=== PATIENT | female | born 1960 | race Caucasian/White ===

== ENCOUNTER 2019-07-26 01:21 | Inpatient (IN) | payer MEDICARE, MEDICAID, SELFPAY ==
[2019-07-26] VITALS (42 sets, daily range): BP systolic 73–132; BP diastolic 28–71; PULSE 82–122; RESP 16–38; TEMP 36.6–38.8; O2SAT 82–100; BMI 41.1
--- NOTE | ~2019-07-26 | XR_ITS ---
EXAMINATION: XR chest ET placement EXAM DATE: 08/02/2019 14:47 INDICATION: Intubated. TECHNIQUE: Portable AP frontal chest x-ray was obtained. Comparison is made to prior examination from earlier same date. FINDINGS: Endotracheal tube has been advanced, tip about 4-5 cm above the talya, adequate. There is a nasogastric tube seen with tip collimated off the study, but below the left hemidiaphragm. There is extensive bilateral airspace disease probably edema and/or pneumonia. No pneumothorax. Right-sided I J venous line in position. There are no osseous abnormalities identified. IMPRESSION: 1. Tubes, lines in position. 2. Extensive bilateral edema and/or pneumonia. Reviewed, dictated and finalized at location B. RVISOR FRUIT GRADING
--- NOTE | ~2019-07-26 | XR_ITS ---
EXAMINATION: XR chest 1V portable DATE: 07/30/2019 05:41 INDICATION: Acute respiratory failure. Intubated. TECHNIQUE: frontal view of the chest was obtained. COMPARISON: Chest radiograph dated 07/28/2019 FINDINGS: Endotracheal tube tip 3.1 cm above the talya. Nasogastric tube extends below the left hemidiaphragm with distal tip collimated off the study. Indistinct interstitial and patchy airspace opacities remain in the mid and lower lung zones but have nearly resolved in the upper lung zones consistent with improving pulmonary edema although superimpo sed pneumonia not excludable. The cardiomediastinal silhouette is normal. IMPRESSION: 1. Decrease in bilateral lung disease which has nearly resolved in the upper lung zones most likely i mproving pulmonary edema although cannot exclude superimposed pneumonia. Reviewed, dictated and finalized at location A. OGICAL SCIENCES INSTRUCTOR IMPRESSION: 1. Decrease in bilateral lung disease which has nearly resolved in the upper pearl ng zones most likely improving pulmonary edema although cannot exclude superimp osed pneumonia.
--- NOTE | ~2019-07-26 | XR_ITS ---
EXAMINATION: XR chest 1V portable INDICATION: Shortness of breath and cough TECHNIQUE: Portable AP chest at 0754 hours COMPARISON: 08/03/2019 FINDINGS: The endotracheal and nasogastric tubes have been removed. A right internal jugular catheter ends with its tip in the proximal right atrium. Diffuse interstitial and airspace opacities persist with slight improvement. There are small stable pleural effusions. No pneumothorax is identified. The cardiomediastinal silhouette is stable. IMPRESSION: 1. Diffuse lung disease with slight improvement, consistent with pneumonia and/or pulmonary edema. 2. Endotracheal and nasogastric tube removal. 3. Small pleural effusions, stable. Reviewed, dictated and finalized at location A. CAL OFFICE ADMINISTRATOR IMPRESSION: 1. Diffuse lung disease with slight improvement, consistent with pneumonia and/ or pulmonary edema. 2. Endotracheal and nasogastric tube removal. 3. Small pleural effusions, stable.
--- NOTE | ~2019-07-26 | XR_ITS ---
EXAMINATION: XR chest 1V portable INDICATION: Pulmonary edema TECHNIQUE: Portable AP chest at 0515 hours COMPARISON: 08/02/2019 FINDINGS: The endotracheal tube ends approximately 4.5 cm above the talya. The nasogastric tube is f ollowed as far as the stomach. Its tip is beyond the inferior margin of the radiograph. A right inter nal jugular catheter ends with its tip in the proximal right atrium. Diffuse interstitial and airspac e opacities persist without significant change. There are small stable pleural effusions. The cardiom ediastinal silhouette is stable. IMPRESSION: 1. Diffuse lung disease without significant change, consistent with pneumonia and/or pulmonary edema. 2. Small pleural effusions. Reviewed, dictated and finalized at location A. FORCING STEEL MACHINE OPERATOR IMPRESSION: 1. Diffuse lung disease without significant change, consistent with pneumonia a nd/or pulmonary edema. 2. Small pleural effusions.
--- NOTE | ~2019-07-26 | XR_ITS ---
XR chest 1V portable DATE: 07/31/2019 05:43 INDICATION: Acute respiratory failure TECHNIQUE: Portable AP chest on 07/31/2000 at 0509 hours COMPARISON: 07/30/2019 portable AP chest at 0515 hours FINDINGS: ET tube in satisfactory position approximately 3.1 cm above talya. NG tube in stomach. Rig ht internal jugular central venous catheter tip overlies the upper right atrium. Heart size appears within normal range considering magnification associated with AP projection. There is pulmonary vascular congestion and redistribution. There is prominence of the minor fissure. There are bilateral primarily central and lower lung zone infiltrates suggesting pulmonary edema. Pneumoni a and aspiration are not excluded. The costophrenic angle not well defined. Small pleural effusions a re not excluded. Diffuse osteopenia. IMPRESSION: Mildly increased bilateral infiltrates since 07/30/2019 Reviewed, dictated and finalized at location A. Y LEVEL ASSISTANT MANAGER
--- NOTE | ~2019-07-26 | XR_ITS ---
XR chest 1V portable 08/08/2019 06:18 Indication: Cough and shortness of breath Procedure: AP portable chest Comparison: Comparison to multiple prior studies sequentially, with oldest reviewed study dated 08/02. Findings: Heart size normal. There is diffuse bilateral airspace disease, compatible with edema. Righ t IJ central line tip in the right atrium. No pleural effusion or pneumothorax. There are cholecystec josh clips. Impression: 1: Persistent diffuse bilateral airspace disease, compatible with edema. Pneumonia less favored. Reviewed, dictated and finalized at location A. ER DEVELOPMENT FACILITATOR Impression: 1: Persistent diffuse bilateral airspace disease, compatible with edema. Pneumo michael less favored.
--- NOTE | ~2019-07-26 | XR_ITS ---
EXAMINATION: XR barium swallow modified DATE: 08/04/2019 11:32 INDICATION: Dysphagia. TECHNIQUE: Modified barium esophagram was performed by myself to administered fluoroscopy, in conjun ction with speech pathologist who administered barium in varying consistencies as per speech patholog ist documentation. This was recorded on tape. A single fluoroscopic spot image was recorded. The DA P for this procedure was 1.8 Gycm2. Fluoroscopy exposure time was 2.4 minutes. FINDINGS: Oral stage: Adequate function. Pharyngeal phase: Adequate function. Laryngeal penetration: Trace with thin liquids. Aspiration: None. Laryngeal sensitivity: Present. IMPRESSION: Trace laryngeal penetration with thin liquids. Please refer to speech pathologist findin gs and specific feeding recommendations. Reviewed, dictated and finalized at location A. ER IMPRESSION: Trace laryngeal penetration with thin liquids. Please refer to spe ech pathologist findings and specific feeding recommendations.
--- NOTE | ~2019-07-26 | XR_ITS ---
XR chest 1V portable DATE: 08/01/2019 06:12 INDICATION: Acute respiratory failure; mechanical ventilation. TECHNIQUE: Portable AP chest on 08/01/2019 at 0547 hours COMPARISON: 07/31/2019 portable AP chest at 0509 hours. FINDINGS: ET tube in satisfactory position proximally 3.5 cm above talya. NG tube in stomach. Right internal jugular central venous catheter in right atrium. No pneumothorax. There are persistent bilateral pulmonary infiltrates and pulmonary vascular congestion without signif icant change, as well as probable small pleural effusions. Surgical clips overlying right upper quadrant, consistent with cholecystectomy Diffuse osteopenia IMPRESSION: Persistent congestive changes and bilateral infiltrates, unchanged since 07/31/2019 Reviewed, dictated and finalized at location A. ICAL RESEARCH DIRECTOR
--- NOTE | ~2019-07-26 | US_ITS ---
EXAMINATION: US venous doppler LE EXAM DATE: 08/04/2019 11:19 INDICATION: Right leg pain. TECHNIQUE: Multiple grayscale, color flow and Doppler images of the lower extremity deep venous syste ms bilaterally were obtained and reviewed. There is no prior study for comparison. FINDINGS: Right side: The right common femoral, femoral and profunda veins demonstrate normal color flow, respi ratory variation, augmentation and compressibility. Compressibility, color flow confirmed within the right popliteal, posterior tibial, peroneal, and greater saphenous veins. Left side: The left common femoral, femoral and profunda veins demonstrate normal color flow, respira tory variation, augmentation and compressibility. Compressibility, color flow confirmed within the l eft popliteal, posterior tibial, peroneal, and greater saphenous veins. IMPRESSION: 1. No lower extremity deep venous thrombosis bilaterally. Reviewed, dictated and finalized at location B. C ACOUSTIC ANALYST
--- NOTE | ~2019-07-26 | XR_ITS ---
EXAMINATION: XR chest ET placement INDICATION: Acute respiratory failure TECHNIQUE: Portable AP chest at 0113 hours COMPARISON: 07/28/2019 FINDINGS: The endotracheal tube ends approximately 3.1 cm above the talya. The nasogastric tube is f ollowed as far as the stomach. Its tip is beyond the inferior margin of the radiograph. A right inter nal jugular central venous catheter ends with its tip in the proximal right atrium. Diffuse interstit ial and airspace opacities persist with slight improvement, particularly in the left upper lung zone. No definite pleural effusion or pneumothorax identified. The cardiomediastinal silhouette is stable. IMPRESSION: 1. Endotracheal tube ending 3.1 cm above the talya. 2. Diffuse lung disease with slight improvement, consistent with pneumonia and/or pulmonary edema. Reviewed, dictated and finalized at location A. ENTINER IMPRESSION: 1. Endotracheal tube ending 3.1 cm above the talya. 2. Diffuse lung disease with slight improvement, consistent with pneumonia and/ or pulmonary edema.
--- NOTE | ~2019-07-26 | XR_ITS ---
EXAMINATION: XR chest 2V DATE: 07/26/2019 02:21 INDICATION: Shortness of breath TECHNIQUE: frontal and lateral views of the chest were obtained. COMPARISON: Chest radiograph dated 03/01/2019 FINDINGS: Diffuse bilateral indistinct interstitial and patchy airspace opacities sparing the subpleural lungs most likely moderate pulmonary edema. No pleural effusion or pneumothorax. The cardiomediastinal silh ouette is normal. Cholecystectomy clips in the upper abdomen. Mild thoracic spondylosis with chronic mild anterior wedging at T11 and T12. IMPRESSION: 1. Diffuse bilateral interstitial and airspace opacities which could represent moderate pulmonary devan ma, pneumonia or combination thereof. Reviewed, dictated and finalized at location A. EN IRON POURER IMPRESSION: 1. Diffuse bilateral interstitial and airspace opacities which could represent moderate pulmonary edema, pneumonia or combination thereof.
--- NOTE | ~2019-07-26 | XR_ITS ---
EXAMINATION: XR chest port-a-cath/central DATE: 07/26/2019 04:33 INDICATION: Central line placement TECHNIQUE: frontal view of the chest was obtained. COMPARISON: Chest radiograph dated 07/26/2019 at 2:18 AM FINDINGS: Right internal jugular central venous catheter with distal tip at the high right atrium. Diffuse linda stinct interstitial and mild patchy airspace opacities with subpleural sparing throughout both lungs. No pleural effusion or pneumothorax. The cardiomediastinal silhouette is normal. IMPRESSION: 1. Diffuse interstitial and airspace disease suggesting moderate pulmonary edema versus less likely p neumonia. Reviewed, dictated and finalized at location A. C D STRIPPER IMPRESSION: 1. Diffuse interstitial and airspace disease suggesting moderate pulmonary leora a versus less likely pneumonia.
--- NOTE | ~2019-07-26 | XR_ITS ---
EXAMINATION: XR chest 1V portable DATE: 07/28/2019 05:54 INDICATION: Acute respiratory failure. Intubated. TECHNIQUE: frontal view of the chest was obtained. COMPARISON: Chest radiograph dated 07/27/2019 FINDINGS: Endotracheal tube tip 5.3 cm above the talya. Nasogastric tube extends below the left hemidiaphragm with distal tip collimated off the study. Right internal jugular central venous catheter with distal tip at the high right atrium. Diffuse bilateral indistinct interstitial and patchy airspace opacities throughout both lungs. No ple ural effusion or pneumothorax. The cardiomediastinal silhouette is normal. IMPRESSION: 1. Endotracheal tube has withdrawn to 5.3 cm above the talya. Consider advancement by 3 cm. 2. No significant change in diffuse lung disease consistent with pulmonary edema, and/or pneumonia. Reviewed, dictated and finalized at location A. INE MARKER IMPRESSION: 1. Endotracheal tube has withdrawn to 5.3 cm above the talya. Consider advance ment by 3 cm. 2. No significant change in diffuse lung disease consistent with pulmonary leora a, and/or pneumonia.
--- NOTE | ~2019-07-26 | XR_ITS ---
EXAMINATION: XR chest 1V portable INDICATION: Respiratory failure TECHNIQUE: Portable AP chest at 0541 hours COMPARISON: 08/01/2019 FINDINGS: The endotracheal tube ends approximately 2.7 cm above the talya. The nasogastric tube is f ollowed as far as the stomach. Its tip is beyond the inferior margin of the radiograph. A right inter nal jugular central venous catheter ends with its tip in proximal right atrium. Diffuse interstitial and airspace opacities persist without significant change. There is some sparing of the left upper pearl ng zone. The cardiomediastinal silhouette is stable. A small right pleural effusion is suggested. No pneumothorax is identified. IMPRESSION: 1. Diffuse lung disease without significant change, consistent with pneumonia/or pulmonary edema. Reviewed, dictated and finalized at location A. ISSIONED SALES ASSOCIATE IMPRESSION: 1. Diffuse lung disease without significant change, consistent with pneumonia/o r pulmonary edema.
--- NOTE | ~2019-07-26 | XR_ITS ---
EXAMINATION: XR chest ET placement INDICATION: Endotracheal tube placement TECHNIQUE: Portable AP chest at 0915 hours COMPARISON: 0535 hours FINDINGS: The endotracheal tube ends approximately 1.2 cm above the talya. The nasogastric tube is in the stomach. Previously described opacities adjacent to the minor fissure have improved. Diffuse b ilateral interstitial and airspace opacities are otherwise unchanged. The heart size is normal. Small pleural effusions are unchanged. There is no pneumothorax. A right internal jugular central venous c atheter ends with its tip in the proximal right atrium. IMPRESSION: 1. Endotracheal tube approximately 1.2 cm above the talya. 2. Nasogastric tube in the stomach. 3. Diffuse lung disease, consistent with pneumonia and/or pulmonary edema. Reviewed, dictated and finalized at location A. T DYER
--- NOTE | ~2019-07-26 | XR_ITS ---
EXAMINATION: XR chest 1V portable DATE: 07/27/2019 06:00 INDICATION: Pulmonary infiltrates TECHNIQUE: frontal view of the chest was obtained. COMPARISON: Chest radiograph dated 07/26/2019 FINDINGS: Diffuse patchy airspace opacities throughout both lungs. This has increased in the right upper lobe w here there are coalescing opacities without evident elevation of the minor fissure to suggest signifi cant volume loss and raising concern for pneumonia. Very small bilateral pleural effusions. No pneumo thorax. The cardiomediastinal silhouette is normal. Right internal jugular central venous catheter wi th distal tip at the high right atrium. IMPRESSION: 1. Bilateral diffuse lung disease with interval worsening the right upper lobe. Differential includes pneumonia, pulmonary edema or combination thereof. 2. Very small bilateral pleural effusions. Reviewed, dictated and finalized at location A. SHING MACHINE OPERATOR
--- NOTE | 2019-07-26 01:14 | ED.SOB ---
HPI - SOB/Dyspnea General Chief Complaint: Shortness of Breath/Dyspnea Stated Complaint: sob/ cough Time Seen by Provider: 07/26/19 01:14 Source: patient and EMS Mode of arrival: EMS Limitations: no limitations History of Present Illness HPI Narrative: A 59 y/o female presents to the ED, via EMS, with c/o SOB and a cough. Per EMS, pt's symptoms started a couple weeks ago as a GI issue that turned into respiratory problem. Pt is lightheaded and dizzy when standing and her SOB is worse when standing. Pt was given Albuterol en route which alleviated her wheeze. Pt was also placed on 6 L of oxygen and was given Decadron and 500 mL of fluid en route. Pt notes that she has a PMHx of asthma but is not normally on oxygen. Pt also thinks that she has a SZ last night. Pt will sometimes have night SZs and is on SZ medication. She reports a subjective fever N/V, and a PMHx of stage 4 kidney failure. Pertinent past history: asthma Onset (ago): week(s) (couple) Exacerbating factors: other (standing) Related Data Home Medications Medication Instructions Recorded Confirmed carbamazepine 06/05/19 ezetimibe mg 06/05/19 furosemide 06/05/19 levetiracetam PO 06/05/19 lisinopril-hydrochlorothiazide 1 tablet PO BID 06/05/19 06/05/19 metronidazole 06/05/19 Allergies Allergy/AdvReac Type Severity Reaction Status Date / Time lorazepam Allergy Intermediate HALLUCINATE Verified 05/28/19 10:29 codeine Allergy Mild NAUSEA AND Verified 05/28/19 10:29 VOMITING hydrocodone Allergy Mild ROOF OF Verified 05/28/19 10:29 MOUTH WENT NUMB Penicillins Allergy Mild NAUSEA AND Verified 05/28/19 10:29 VOMITING azithromycin Allergy Unknown Unknown Verified 07/26/19 02:03 phenytoin Allergy Unknown Unknown Verified 05/28/19 10:29 topiramate Allergy Unknown Unknown Verified 07/26/19 02:03 Contrast Media Allergy Mild REDNESS TO Uncoded 05/28/19 10:29 SKIN, SWELLING TO FACE Review of Systems Review of Systems: All systems reviewed & are unremarkable except as noted in HPI and below Constitutional: Constitutional: Reports fever(s) (subjective) Comments: Reports: lightheadedness Respiratory: Respiratory: Reports cough, Reports dyspnea and Reports wheezing Gastrointestinal: Gastrointestinal: Reports nausea and Reports vomiting Neurologic: Reports dizziness PMFSH Past Medical History Medical History (Updated 07/26/19 @ 04:36 by Arash Morales MD) Asthma CVA (cerebral vascular accident) Elevated cholesterol Hypertension Kidney disease, chronic, stage IV (GFR 15-29 ml/min) Seizures Family History Family History Mother Hypertension Asthma Father Family history of malignant neoplasm of brain Social History Social History Smoking status: Unknown if ever smoked Comments No PCP on file. Exam Narrative: Exam Narrative: Constitutional: Ill-appearing, mild distress, well nourished HENMT: lip normal, MM dry Respiratory: Tachypnea. Diffuse rhonchi. Cardiovascular: Tachycardic, regular rhythm, no murmur GI: soft, nontender, normal bowel sounds Back/Spine/Pelvis: Full ROM Skin: normal color, dry skin, warm Neuro: A&O x3, normal speech Extremities: full ROM Psychiatric: mental status grossly normal, normal affect Course Vital Signs Vital signs: Vital Signs Temperature 38.8 C H 07/26/19 01:14 Pulse Rate 122 H 07/26/19 01:14 Respiratory Rate 26 H 07/26/19 01:14 Blood Pressure 83/68 L 07/26/19 01:14 Pulse Oximetry 82 L 07/26/19 01:14 Temperature 37.3 C 07/26/19 02:52 Pulse Rate 83 07/26/19 04:51 Respiratory Rate 20 07/26/19 04:51 Blood Pressure 115/63 07/26/19 04:51 Pulse Oximetry 98 07/26/19 04:51 Procedures Central Line Placement Right IJ: Central Line Date: 07/26/19 Central Line Time: 04:29 Time Out Performed: Yes Patient Placed on Mo
--- NOTE | 2019-07-26 01:31 | ECG_ITS ---
Measurements Intervals [place] Rate: 118 P: 42 MN: 127 QRS: 32 QRSD: 83 T: 17 QT: 315 QTc: 442 Interpretive Statements SINUS TACHYCARDIA POSSIBLE LEFT ATRIAL ENLARGEMENT LOW QRS VOLTAGE IN PRECORDIAL LEADS BORDERLINE T WAVE ABNORMALITY- INFERIOR LEADS BASELINE WANDER- V4-V6 ABNORMAL ECG Electronically Signed On 07-26-2019 7:09:58 GIFT SHOP MANAGER by Uriel Horvath D.O.
[2019-07-26] MEDS: SODIUM CHLORIDE 0.9% IV 1,000 ML 999 ML IV CONT ×3 (01:45→03:26)
[2019-07-26] MEDS: ALBUTEROL SULFATE NEB 2.5 MG/0.5 ML INH 5 MG INHALATION ×4 (01:57→19:58)
[2019-07-26] MEDS: IPRATROPIUM BR 0.02% INH SOLN 0.5 MG/2.5 ML VIAL INHALATION ×4 (01:58→19:58)
--- NOTE | 2019-07-26 02:13 | PC.NURSE ---
Pt taken to xray, will draw when pt returns
--- NOTE | 2019-07-26 02:50 | PC.NURSE ---
2nd liter of NS initiated per verbal order from Dr Morales
[2019-07-26 02:51] LABS: Basophils Percent Auto 0.2 % (0.2-1.2); Eosinophils Percent Auto 0.1 % (0-4.4); Hematocrit 26.4 % (37.0-47.0); Hemoglobin 8.9 g/dL (12.0-15.0); Immature Granulocyte Absolute 0.07 K/mm3 (0.00-0.031); Immature Granulocyte Percent A 0.7 % (0-0.5); Lymphocytes Absolute Auto 0.77 K/mm3 (0.9-3.2); Lymphocytes Percent Auto 7.9 % (18.3-44.2); Mean Corpuscular HGB Conc 33.7 g/dl (32-36); Mean Corpuscular Hemoglobin 31.1 pg (26-34); Mean Corpuscular Volume 92.3 fl (80-100); Mean Platelet Volume 9.6 fl (7.4-10.4); Monocytes Absolute Auto 0.4 K/mm3 (0.1-0.6); Monocytes Percent Auto 4.1 % (2.6-8.5); Neutrophils Absolute Auto 8.5 K/mm3 (1.3-6.7); Platelet Count Result 181 k/mm3 (150-375); Red Blood Count 2.86 M/mm3 (4.2-5.4); White Blood Count 9.7 K/mm3 (4.5-10.0)
[2019-07-26 03:01] LABS: INR 1.2
[2019-07-26 03:02] LABS: Lactic Acid Reflex 1.1 mmol/L (0.7-2.1); Partial Thromboplastin Time 31.3 SECONDS (22.3-36.8)
[2019-07-26 03:06] LABS: Alanine Aminotransferase 59 U/L (4-35); Alkaline Phosphatase 123 U/L (38-126); Aspartate Amino Transferase 51 U/L (14-36); Bilirubin,Total 0.5 mg/dL (0.2-1.3); Blood Urea Nitrogen 54 mg/dL (7-17); CRP 7.7 mg/dL (<1.0); Calcium 7.7 mg/dL (8.4-10.2); Carbon Dioxide 20 mmol/L (22-30); Chloride 98 mmol/L (98-107); Estimated CRCL calculation 17 ml/min; Estimated Glomerular Filt Rate 15; Glucose 141 mg/dL (65-105); Potassium 3.9 mmol/L (3.4-5.0); Sodium 131 mmol/L (137-145)
[2019-07-26 03:14] LABS: Troponin I 0.013 ng/mL (0.000-0.034)
[2019-07-26 03:19] LABS: Add Urine Microscopic? YES; Appearance Urine Clear (Clear); Bilirubin Urine Negative (Negative); Blood Urine Negative (Negative); Color Urine Yellow (Yellow); Glucose Urine UA Negative (Negative); Ketones Urine Negative (Negative); Leukocyte Esterase Ur Trace LEU/UL (Negative); Mucus Urine Rare /lpf; Nitrate Urine Negative (Negative); Protein Urine Negative (Negative); RBC Urine 0-2 /hpf (0-2); Specific Grav Ur 1.014 (1.001-1.035); Squamous Epithelial Cell Urine Rare /hpf (Few); Urobilinogen Urine Negative mg/dL (<2.0); WBC Urine 0-3 /hpf
--- NOTE | 2019-07-26 04:01 | PC.NURSE ---
Patient resting on stretcher, remains aox4. Playing on phone. Patient gave verbal consent for central line, set up completed.
--- NOTE | 2019-07-26 04:07 | PC.NURSE ---
Dr Morales at bedside for central line placement.
[2019-07-26] MEDS: NOREPINEPHRINE 8 MG/D5W 250 ML 8 MG/250 ML BAG 9.4 MG IV CONT (04:39)
--- NOTE | 2019-07-26 05:33 | PM.IMHP ---
H&P: HPI History of Present Illness Chief complaint: Intractable coughing++ Narrative: This is a pleasant 59 year old obese female with known seizure disorder, HTN, Asthma/COPD, and stage IV CKD who presented to the hosptial with a complaint of ongoing intractable coughing, intermittent fevers, and shortness of breath. Her symptoms started early last week with GI symptoms which included nausea, vomiting, diarrhea and abdominal cramping. She remarks that there was a GI bug going around in her family. As her GI symptoms started to improve she began to have respiratory symptoms including cough, shortness of breath, and wheezing. Her respiratory symptoms have continued since then and she started to spike high fevers up to 102 F. On Friday night she experienced a seizure and bit her tongue. She has been compliant with her home medications and the last time she had a seizure was 3 months ago when she had run out of her Keppra. The patient did see her gyncecologist yesterday as she was having vaginal discharge and she was told that she had a gyncecological bacterial infection and placed on flagyl and doxycycline. She stopped taking those antibiotics today as she did not like how they tasted. Tonight she has been experiencing coughing with any breathing. In the ER tonight the patient was found to be hypotensive and CXR demonstrated diffuse pulmonary edema. The patient has no history of previous heart failure. The patient received a 30cc/kg IV bolus of NS but continued to be hypotensive. She was treated with Levaquin and Vancomycin IV. ER provider placed a right IJ central line and Banking Management Consulting Manager, Dr. Molina has been consulted. The patient denies any dysuria, hematuria. She no longer has any nausea, vomiting or diarrhea. No chest pain, palpitations, rectal bleeding, open wounds or rashes are reported. She does report that she slipped and fell on her left side the other day when she tried to weigh herself. Tonight she denies any focal neurological symptoms. She hasn't had any other seizures. No other complaints at this time. Review of Systems Review of Systems: All systems reviewed & are unremarkable except as noted in HPI and below PMFSH Past Medical History Medical History Asthma CVA (cerebral vascular accident) Elevated cholesterol Hypertension Kidney disease, chronic, stage IV (GFR 15-29 ml/min) Seizures Family History Family History Mother Hypertension Asthma COPD (chronic obstructive pulmonary disease) Father Family history of malignant neoplasm of brain Social History Social History Smoking status: Unknown if ever smoked Alcohol intake: never Substance use: never Gender identity (if verbalized by the patient): Female Spiritual care concerns: No Agree to blood products: Yes Meds Home Medications and Allergies Home Medications Medication Instructions Recorded Confirmed Type carbamazepine 200 mg PO BID 06/05/19 07/26/19 History ezetimibe 10 mg PO DAILY 06/05/19 07/26/19 History furosemide 20 mg PO DAILY PRN 06/05/19 07/26/19 History acetaminophen 1,000 mg PO QID PRN 07/26/19 07/26/19 History albuterol sulfate [ProAir HFA] 2 puff INHALATION Q4H PRN 07/26/19 07/26/19 History aspirin 81 mg PO DAILY 07/26/19 07/26/19 History lisinopril-hydrochlorothiazide 1 tablet PO DAILY 07/26/19 07/26/19 History loratadine 10 mg PO DAILY 07/26/19 07/26/19 History Allergies Allergy/AdvReac Type Severity Reaction Status Date / Time lorazepam Allergy Intermediate HALLUCINATE Verified 05/28/19 10:29 codeine Allergy Mild NAUSEA AND Verified 05/28/19 10:29 VOMITING hydrocodone Allergy Mild ROOF OF Verified 05/28/19 10:29 MOUTH WENT NUMB Penicillins Allergy Mild NAUSEA AND Verified 05/28/19 10:29 VOMITING azithromycin Allergy Unknown Un
[2019-07-26] MEDS: LACTATED RINGERS 1,000 ML 125 ML IV CONT ×2 (05:46→23:59)
--- NOTE | 2019-07-26 05:57 | ECHO_ITS ---
Patient Info Name: Leatha Winn Age: 59 years : 1960 Gender: Female Ht: 60 in Wt: 198 lbs BSA: 2.00 m2 HR: 85 bpm BP: 98 / 55 mmHg Heart Rhythm: Sinus Rhythm Technical Quality: Good Exam Date: 07/26/2019 9:30 AM Exam Location: [facility] Patient Status: Inpatient Admit Date: 07/26/2019 Staff Ordering Physician: Moe Solano MD Auctioneer Tobacco: Jamal Tirado RDCS Attending Provider: Moe Solano MD Referring Physician: Xiomara VELIZ; Exam Type: CA echo doppler color flow Study Info Indications I50.30 - Unspecified diastolic (congestive) heart failure Complete two-dimensional, color flow and Doppler transthoracic echocardiogram is performed. Strain analysis performed. History/Risk Factors Pulmonary edema; septic shock, CKD IV, PNA, edema, CHF w/ BNP 1440. Summary 1. Left ventricular systolic function is hyperdynamic, estimated at >70%. 2. The left ventricular diastolic function is grade II diastolic dysfunction. 3. The mitral valve has thickened leaflets with restricted motion of posterior leaflet.. 4. There is mild mitral valve regurgitation. 5. Mild mitral annular calcification. 6. Focal echogenicity at posterior leaflet chordal insertion most likely calcificed submitral apparatus. However, cannot exclude vegetation. Clinical correlation advised. 7. There is mild tricuspid valve regurgitation. 8. Moderate pulmonary hypertension, estimated pulmonary arterial systolic pressure is 45 mmHg. Recommendations * Consider PATRICK if clinically indicated. Left Ventricle Left ventricular chamber dimension is normal. Left ventricular systolic function is hyperdynamic, estimated at >70%. There is no increased left ventricular wall thickness. Left ventricular septal wall motion is normal. The left ventricular diastolic function is grade II diastolic dysfunction. Right Ventricle Right ventricular chamber dimension is normal. Right ventricular systolic function is normal. Left Atria Left atrial chamber dimension is normal. Right Atria Right atrial chamber dimension is normal. Aortic Valve The aortic valve is not well visualized. There is mild aortic valve stenosis with a peak velocity of 253 cm/s, mean gradient of 11 mmHg, and aortic valve area of 1.5 cm2. There is no aortic valve regurgitation. Pulmonic Valve The pulmonic valve is not well visualized. Mitral Valve The mitral valve has thickened leaflets with restricted motion of posterior leaflet.. There is mild mitral valve regurgitation. Mild mitral annular calcification. Focal echogenicity at posterior leaflet chordal insertion most likely calcificed submitral apparatus. However, cannot exclude vegetation. Clinical correlation advised. Tricuspid Valve The tricuspid valve leaflets are normal. There is mild tricuspid valve regurgitation. Moderate pulmonary hypertension, estimated pulmonary arterial systolic pressure is 45 mmHg. Inferior Vena Cava Normal inferior vena cava with >50% collapse upon inspiration consistent with normal right atrial pressure, 5 mmHg. Left Ventricular Outflow Tract Name Value Normal LVOT 2D LVOT Diameter 1.7 cm LVOT Doppler
[2019-07-26] MEDS: GUAIFENESIN/DEXTROMETHORPHAN 10 ML UDC PO ×3 (06:33→19:58)
[2019-07-26 06:37] LABS: Estimated CRCL calculation 19 ml/min; Estimated Glomerular Filt Rate 16
--- NOTE | 2019-07-26 06:39 | PC.NURSE ---
This patient, Leatha Winn, was admitted to Intensive Care Unit-8 on 07/26/19 at 0518. Patient/family oriented to hospital policies and general routines including ID bracelet, bed and alarms, visiting hours, pain management, procedures, bathroom and other care routines, personal items, smoking policy, room service/diet, and visiting hours. Valuables list has been completed. Information on how to activate the Rapid Response Team has been discussed. Patient/Family are encouraged to report perceived risks to care and to ask questions if they do not understand what they are told or what they should do.
[2019-07-26 06:43] LABS: NT Pro B Type Natriuretic Pept 1440 PG/ML (5-100)
[2019-07-26] MEDS: HEPARIN SODIUM 5,000 UNITS/ML VIAL 5000 UNITS SUB-Q ×2 (07:51→20:29)
[2019-07-26] MEDS: metroNIDAZOLE 500 MG/ISO 100ML 500 MG/100 ML BAG 100 MG IVPB ×3 (07:51→18:41)
--- NOTE | 2019-07-26 07:57 | WPDCNINT ---
Assessment and Plan Assessment and plan (1) Septic shock: Code(s): A41.9 - Sepsis, unspecified organism; R65.21 - Severe sepsis with septic shock Status: Acute Assessment and Plan: patient presented with shortness of breath, cough, vaginal infection - patient was hypotensive in the ED, received adequate IV fluids, central line was inserted and patient was started on Levophed, maintain mean arterial pressures > 70 mmHg for adequate perfusion - likely source, lungs and or vaginal infection - continue cefepime, vancomycin, added Flagyl - blood in urine cultures have been obtained, will add sputum cultures - will decrease maintenance IV fluids (2) Pneumonia: Qualifiers: Pneumonia type: due to unspecified organism Laterality: unspecified laterality Lung location: unspecified part of lung Qualified Code(s): J18.9 - Pneumonia, unspecified organism Code(s): J18.9 - Pneumonia, unspecified organism Status: Acute Assessment and Plan: chest x-ray shows bilateral diffuse interstitial infiltrates, could be pneumonia, pulmonary vascular congestion - continue antibiotics as above, sputum cultures have been ordered (3) Vaginal infection: Code(s): N76.0 - Acute vaginitis Status: Acute Assessment and Plan: patient was recently seen by OBGYN, was told that she has a bacterial vaginal infection - was started on doxycycline and Flagyl orally, patient did not like the taste of those medications so she had stopped taking them - will start IV Flagyl (4) Pulmonary edema: Qualifiers: Chronicity: acute Qualified Code(s): J81.0 - Acute pulmonary edema Code(s): J81.1 - Chronic pulmonary edema Status: Acute Assessment and Plan: patient on 4 L nasal cannula with adequate O2 sats, - will place on BiPAP if needed - hold diuresis at this time since patient is in septic shock on Levophed - check echocardiogram (5) Acute renal failure superimposed on stage 4 chronic kidney disease: Qualifiers: Acute renal failure type: unspecified Qualified Code(s): N17.9 - Acute kidney failure, unspecified; N18.4 - Chronic kidney disease, stage 4 (severe) Code(s): N17.9 - Acute kidney failure, unspecified; N18.4 - Chronic kidney disease, stage 4 (severe) Status: Acute Assessment and Plan: patient with history of stage 4 chronic kidney disease, - acute on chronic kidney disease likely related to septic shock, hypovolemia, ATN - patient adequately fluid-resuscitated - continue to monitor urine output, electrolytes and renal function - will consult Nephrology, Dr. Solano is her automotive lot attendant (6) Seizure: Code(s): R56.9 - Unspecified convulsions Status: Acute Assessment and Plan: patient with history of seizures, continue carbamazepine (7) DVT prophylaxis: Code(s): Z29.9 - Encounter for prophylactic measures, unspecified Status: Acute Assessment and Plan: heparin SQ Additional Plan discussed with patient updated with her condition and plan of care. I answered all questions Code status: full code critical care time spent: 39 minutes Due to a high probability of clinically significant, life threatening deterioration, the patient required my highest level of preparedness to intervene emergently and I personally spent this critical care time directly and personally managing the patient. This critical care time included obtaining a history; examining the patient; pulse oximetry; ordering and review of studies; arranging urgent treatment with development of a management plan; evaluation of patient's response to treatment; frequent reassessment; and discussions with other providers. It was exclusive of separately billable procedures and treating other patients and teaching time. Please see Assessment and Plan section and the rest of the note for further information on patient assessment and
[2019-07-26 08:17] LABS: Lactic Acid Reflex 0.9 mmol/L (0.7-2.1)
[2019-07-26 08:36] LABS: Thyroid Stimulating Hormone Reflex 0.339 uIU/mL (0.465-4.68)
[2019-07-26 09:21] LABS: Free T4 Free Thyroxine Reflex 1.19 ng/dL (0.78-2.19)
--- NOTE | 2019-07-26 09:22 | PM.CNNEP ---
Assessment and Plan Assessment and plan (1) Acute renal failure superimposed on stage 4 chronic kidney disease: Onset Date: ~07/2019 Code(s): N17.9 - Acute kidney failure, unspecified; N18.4 - Chronic kidney disease, stage 4 (severe) Status: Acute Assessment and Plan: The patient has known chronic kidney disease stage 3 at baseline. Current numbers may just be due to the acute renal failure. The differential diagnosis of the acute renal failure would be volume depletion, hypotension, acute tubular necrosis with sepsis and septic shock. The patient will get fluids, 1 in the intake and output, monitor renal function, interventions Patient is noted to be anemic on this occasion. Platelet count is normal. I do not believe there is any hemolysis but needs to be contemplated just in case as she has had normal hemoglobin levels in the past. She also has a past CT scan showing nodularity of the liver which is suspected to be due to cirrhosis. She has had a few hospitalizations with acute hepatic injury of undetermined etiology. Apparently she has mild elevations of the liver enzymes. She is being treated with antimicrobials for the sepsis. Required pressors in the beginning and has had lactated Ringer's. So long as she makes urine and her level improving we should not have much to be concerned about. A urinalysis shows protein count to be negative no red cells in the urine. Patient has a lactate of 0.9. Patient has a borderline low calcium and is hypoalbuminemic. Will add calcium carbonate, check magnesium and phosphorus levels. D/w Dr Molina . (2) Hypertension: Qualifiers: Hypertension type: unspecified Qualified Code(s): I10 - Essential (primary) hypertension Code(s): I10 - Essential (primary) hypertension Status: Chronic Assessment and Plan: May have an element of hypertensive renal disease. (3) Secondary hyperparathyroidism of renal origin: Code(s): N25.81 - Secondary hyperparathyroidism of renal origin Status: Acute Assessment and Plan: She has had a level of 116 in the past. Can look at vitamin-D analog later on which is low stable. (4) Cirrhosis of liver: Code(s): K74.60 - Unspecified cirrhosis of liver Status: Acute Assessment and Plan: This note is for a vacation. Elevated liver enzymes noted. (5) Septic shock: Code(s): A41.9 - Sepsis, unspecified organism; R65.21 - Severe sepsis with septic shock Status: Acute Assessment and Plan: IV fluid support and antibiotics. (6) Pulmonary edema: Qualifiers: Chronicity: acute Qualified Code(s): J81.0 - Acute pulmonary edema Code(s): J81.1 - Chronic pulmonary edema Status: Acute Assessment and Plan: Will need evaluation of cardiac status as well based on the presentation with the elevated BNP, pulmonary edema, presence of infiltrates which represent pneumonic infiltrates. Additional Plan From a renal standpoint, we will watch. Monitor I/O: Monitor basic metabolic panel. Think about other causes of renal failure. However there is no active urinary sediment. Therefore this is not a pulmonary renal syndrome. With hydration, improvement of blood pressure, treatment of the infection I believe she will settle down back to her baseline renal function which probably put her at chronic kidney disease stage 3 History of Present Illness Reason for Consult Consult date: 07/26/19 Reason for consult: acute renal failure and chronic renal failure Requesting physician: Liliya Molina MD Chief Complaint Chief complaint: Intractable coughing++ History of Present Illness Narrative: 59-year-old white female known to me from the office. She has a baseline creatinine of 2.0 mg/dL from 3 months ago. Patient has been in ICU multiple times with sepsis. She has had acute hepatic injury of a few occasions as well. The splinting to acute renal failure. She has b
[2019-07-26 10:05] LABS: Total Triiodothyronine (T3) 0.61 NG/ML (0.97-1.69)
[2019-07-26] MEDS: CALCIUM CARBONATE (TUMS) 500 MG (200 MG ELEMENTAL) PO (15:31)
--- NOTE | 2019-07-26 17:00 | PM.IMPN ---
Progress Note: A&P Assessment and Plan (1) Septic shock: Code(s): A41.9 - Sepsis, unspecified organism; R65.21 - Severe sepsis with septic shock Status: Acute Assessment and Plan: 07/26/19 17:00 Patient is 59-year-old female presented emergency department with persistent cough abdominal pain nausea vomiting, patient also had vaginal discharge and she was seen by her coiled tubing operator diagnosed with bacterial vaginosis started the patient on Flagyl and doxycycline however patient did not take the medication because as see did not like the taste of the medications, see presented emergency department with a complaint of persistent cough C found to pneumonia and see was in sepsis with hypotension however patient lactic acid is normal as well as white counts are normal, patient was started on Levophed vigorously hydrated seen by impersonator character and being treated with Cefepime, vancomycin and Flagyl, currently patient denies any abdominal pain nausea or vomiting fever or chills her family is present in the room (2) Pulmonary edema: Qualifiers: Chronicity: acute Qualified Code(s): J81.0 - Acute pulmonary edema Code(s): J81.1 - Chronic pulmonary edema Status: Acute Assessment and Plan: Patient with pulmonary edema most likely secondary to acute on chronic diastolic dysfunction however currently patient is hypotensive, and hydrated concern for volume overload seen by impersonator character and further recommendation to follow (3) Normocytic anemia: Code(s): D64.9 - Anemia, unspecified Status: Acute Assessment and Plan: acute vs. chronic. No history of bleeding. Monitor H/H, transfuse prn. (4) Transaminitis: Code(s): R74.0 - Nonspecific elevation of levels of transaminase and lactic acid dehydrogenase [LDH] Status: Acute Assessment and Plan: Likely secondary to hypoperfusion. Monitor LFTs and consider further studies if the patient's transaminitis doesn't resolve. (5) Seizure: Code(s): R56.9 - Unspecified convulsions Status: Acute Assessment and Plan: The pateint has had an acute seizure the day before yesterday. We will continue her Carbamazepine. Seizure precautions. Consider Neurology consultation today. (6) Vaginal infection: Code(s): N76.0 - Acute vaginitis Status: Acute Assessment and Plan: It's not entirely clear what kind of vaginal infection the patient is being treated for. We will need to obtain outside records in the morning from her Analysis Director office. Continue antibiotic therapy. Plan is above (7) Acute renal failure superimposed on stage 4 chronic kidney disease: Onset Date: ~07/2019 Code(s): N17.9 - Acute kidney failure, unspecified; N18.4 - Chronic kidney disease, stage 4 (severe) Status: Acute Assessment and Plan: Likely secondary to hypoperfusion from septic shock. Monitor renal function. Renally dose medications. Avoid nephrotoxic medications. (8) Hypertension: Qualifiers: Hypertension type: unspecified Qualified Code(s): I10 - Essential (primary) hypertension Code(s): I10 - Essential (primary) hypertension Status: Chronic Assessment and Plan: Hold home anithypertensive medications as the patient has septic shock. resume when appropriate. (9) Elevated cholesterol: Code(s): E78.00 - Pure hypercholesterolemia, unspecified Status: Chronic Assessment and Plan: Continue statin therapy. Subjective Date/time seen: 07/26/19 17:00 Patient is 59-year-old female presented emergency department with persistent cough abdominal pain nausea vomiting, patient also had vaginal discharge and she was seen by her coiled tubing operator diagnosed with bacterial vaginosis started the patient on Flagyl and doxycycline however patient did not take the medication because as see did not like the taste of the medications, see presented emergency department with a complaint
[2019-07-26] MEDS: ACETAMINOPHEN 325 MG TABLET 650 MG PO (19:56)
[2019-07-26] MEDS: CARBAMAZEPINE 100 MG CHEW PO (20:28)
[2019-07-26 20:42] LABS: Lactic Acid Reflex 1.3 mmol/L (0.7-2.1)
[2019-07-26] MEDS: hetaSTARCH 6%/NACL 500 ML 250 ML IV CONT (21:56)
[2019-07-27] VITALS (25 sets, daily range): BP systolic 87–106; BP diastolic 37–74; PULSE 88–126; RESP 17–38; TEMP 36.6–39; O2SAT 91–100; BMI 41.3
[2019-07-27] MEDS: ALBUTEROL SULFATE NEB 2.5 MG/0.5 ML INH 5 MG INHALATION ×4 (01:59→21:17)
[2019-07-27] MEDS: IPRATROPIUM BR 0.02% INH SOLN 0.5 MG/2.5 ML VIAL INHALATION ×4 (02:00→21:17)
[2019-07-27] MEDS: NOREPINEPHRINE 8 MG/D5W 250 ML 8 MG/250 ML BAG 31.9 MG IV CONT (02:11)
[2019-07-27] MEDS: GUAIFENESIN/DEXTROMETHORPHAN 10 ML UDC PO (02:18)
[2019-07-27] MEDS: metroNIDAZOLE 500 MG/ISO 100ML 500 MG/100 ML BAG 100 MG IVPB ×3 (05:21→11:36)
[2019-07-27 05:45] LABS: Basophils Percent Auto 0.1 % (0.2-1.2); Eosinophils Percent Auto 0.1 % (0-4.4); Hematocrit 27.6 % (37.0-47.0); Hemoglobin 8.7 g/dL (12.0-15.0); Immature Granulocyte Absolute 0.14 K/mm3 (0.00-0.031); Lymphocytes Absolute Auto 1.07 K/mm3 (0.9-3.2); Lymphocytes Percent Auto 7.7 % (18.3-44.2); Mean Corpuscular HGB Conc 31.5 g/dl (32-36); Mean Corpuscular Hemoglobin 28.6 pg (26-34); Mean Corpuscular Volume 90.8 fl (80-100); Mean Platelet Volume 9.2 fl (7.4-10.4); Monocytes Absolute Auto 0.9 K/mm3 (0.1-0.6); Monocytes Percent Auto 6.5 % (2.6-8.5); Neutrophils Absolute Auto 11.7 K/mm3 (1.3-6.7); Neutrophils Percent Auto 84.6 % (45.5-73.1); Platelet Count Result 242 k/mm3 (150-375); Red Blood Count 3.04 M/mm3 (4.2-5.4); Red Cell Distribution Width 13.5 % (11.5-14.5); White Blood Count 13.8 K/mm3 (4.5-10.0)
[2019-07-27 05:57] LABS: Lactic Acid 0.9 mmol/L (0.7-2.1)
[2019-07-27 06:06] LABS: Alanine Aminotransferase 47 U/L (4-35); Albumin Level 2.8 g/dL (3.5-5.1); Alkaline Phosphatase 104 U/L (38-126); Aspartate Amino Transferase 42 U/L (14-36); Bilirubin,Total 0.3 mg/dL (0.2-1.3); Blood Urea Nitrogen 38 mg/dL (7-17); Calcium 8.3 mg/dL (8.4-10.2); Carbon Dioxide 22 mmol/L (22-30); Chloride 105 mmol/L (98-107); Estimated CRCL calculation 27 ml/min; Estimated Glomerular Filt Rate 24; Glucose 157 mg/dL (65-105); Magnesium 1.5 mg/dL (1.6-2.3); Potassium 4.1 mmol/L (3.4-5.0); Sodium 137 mmol/L (137-145)
--- NOTE | 2019-07-27 08:24 | PM.PNNEP ---
Progress Note: A&P Assessment and Plan (1) Acute renal failure superimposed on stage 4 chronic kidney disease: Onset Date: ~07/2019 Code(s): N17.9 - Acute kidney failure, unspecified; N18.4 - Chronic kidney disease, stage 4 (severe) Status: Acute Assessment and Plan: The patient is improving with reference to the renal failure. However breathing kennedy she is worsening, chest x-rays wrist with patchy alveolar infiltrates bilaterally. She has not had to have ARDS with increased respiratory rate. Patient is going to require ventilatory support and has to be intubated. She is on antimicrobial therapy. She has grade 2 diastolic heart failure. Currently needing pressor support as well as IV fluids. She is on antimicrobial therapy. Cayetano was her liver function, renal function, urinary output. She is hypomagnesemic and magnesium is being replaced. Will continue to watch from a renal standpoint. Prognosis guarded in light of these new developments requiring ventilation. Hopefully she does not respond with a renal function. She is anemic, platelet count is normal. No active GI bleed. Monitor. (2) Cirrhosis of liver: Code(s): K74.60 - Unspecified cirrhosis of liver Status: Acute (3) Secondary hyperparathyroidism of renal origin: Code(s): N25.81 - Secondary hyperparathyroidism of renal origin Status: Acute (4) Hypertension: Qualifiers: Hypertension type: unspecified Qualified Code(s): I10 - Essential (primary) hypertension Code(s): I10 - Essential (primary) hypertension Status: Chronic (5) Transaminitis: Code(s): R74.0 - Nonspecific elevation of levels of transaminase and lactic acid dehydrogenase [LDH] Status: Acute (6) Septic shock: Code(s): A41.9 - Sepsis, unspecified organism; R65.21 - Severe sepsis with septic shock Status: Acute (7) Anemia: Code(s): D64.9 - Anemia, unspecified Status: Acute (8) Hypomagnesemia: Code(s): E83.42 - Hypomagnesemia Status: Acute Subjective Date/time seen: 07/27/19 08:24 Interval history: Follow-up of acute on chronic renal failure Exhausted, coughing, minimal production sputum, has a Penaloza catheter in place. Hearing been made. Urinary output of 3950 mL Has increased shortness of breath Current echocardiogram report shows ejection fraction greater than 70% with grade 2 diastolic heart failure. She has pulmonary hypertension. Exam Const: General: in distress and uncomfortable HENMT: Mouth: Yes moist mucous membranes Eyes: Sclera: sclerae normal Neck: Neck: no JVD Resp: Auscultation: diminished lung sounds (wheeze, hard to hear otherwise) Cardio: Rate: regular rate Rhythm: regular rhythm GI: GI Palp: Yes Soft to palpation and No Tenderness to palpation present (GI) Urinary Catheter: Urinary Catheter: urine clear Skin: General skin exam: no rashes or lesions noted Neuro: Cognition (Neuro): normal cognition Extrem: General: no edema Psych: Other: tired Objective Data Vital Signs Vital Signs: Vital Signs - 24 hr 07/26/19 09:10 07/26/19 09:20 07/26/19 10:00 Temperature Pulse Rate 84 92 87 Respiratory Rate 20 23 H 16 Blood Pressure 103/52 L Pulse Oximetry 95 98 07/26/19 11:54 07/26/19 12:00 07/26/19 14:00 Temperature 36.6 C Pulse Rate 82 93 85 Respiratory Rate 22 H 27 H 31 H Blood Pressure 92/52 L 90/46 L Pulse Oximetry 96 96 98 07/26/19 15:04 07/26/19 15:15 07/26/19 16:00 Temperature 37.1 C Pulse Rate 83 86 96 Respiratory Rate 23 H 19 28 H Blood Pressure 81/70 L Pulse Oximetry 94 07/26/19 18:00 07/26/19 20:00 07/26/19 20:05 Temperature Pulse Rate 95 114 H Respiratory Rate 22 H 28 H Blood Pressure 93/48 L Pulse Oximetry 97 88 L 94 07/26/19 20:07 07/26/19 20:15 07/26/19 20:30 Temperature Pulse Rate 98 102 H 104 H Respiratory Rate 24 H 38 H 28 H Blood Pressure 94/36 L 94/35 L Pulse Oxi
[2019-07-27] MEDS: SODIUM CHLORIDE 0.9% IV 500 ML IV CONT (09:21)
[2019-07-27] MEDS: RAPID SEQUENCE INTUBATION KIT 1 EACH (09:22)
[2019-07-27] MEDS: MIDAZOLAM HCL 50 MG in DEXTROSE 5% 90 ML IV CONT (09:31)
[2019-07-27] MEDS: MAGNESIUM SULF 2 GM/WATER 50ML 2 GM/50 ML BAG IVPB (09:43)
[2019-07-27] MEDS: HEPARIN SODIUM 5,000 UNITS/ML VIAL 5000 UNITS SUB-Q ×2 (09:43→21:25)
[2019-07-27 10:47] LABS: Alveolar/Arterial O2 Gradient 563.5 mmHg; Base Excess ABG -6.6 mEq/l (+/-2.0); Carboxyhemoglobin 0.2 % THb (0-2.0); Fractional Inspired Oxygen 85 %; HCO3 ABG 20.1 mEq/l (22.0-26.0); Methemoglobin ABG 0.5 %THb (0-1.5); Oxygen Content ABG 12.1 %vol (16.0-22.0); Oxyhemoglobin 87.5 % THb (90.0-100.0); PCO2 ABG 45.8 mmHg (35.0-45.0); PO2 ABG 57.9 mmHg (80.0-100.0); PO2 FiO2 Ratio Arterial Blood 0.68 %; Reduced Hemoglobin 11.8 %THb (0-5.0); Total Hemoglobin 9.8 g/dL (12.0-18.0)
[2019-07-27 10:48] LABS: Device VENTILATOR; Oxygen Saturation ABG 85.9 % (95.0-100.0); Site Drawn LEFT BRACHIAL; pH ABG 7.261 (7.350-7.450)
[2019-07-27 10:49] LABS: Arterial Blood Gas PEEP 12 cmH2O; Arterial Blood Gas Tidal Volume 320 ml; Arterial Blood Gas Vent Mode CMV; Arterial Blood Gas Ventilator rate 20 /MIN
[2019-07-27] MEDS: NOREPINEPHRINE 8 MG/D5W 250 ML 8 MG/250 ML BAG 28.1 MG IV CONT (10:59)
[2019-07-27] MEDS: PANTOPRAZOLE SODIUM IV 40 MG VIAL IV PUSH (11:37)
[2019-07-27 12:22] LABS: Alveolar/Arterial O2 Gradient 462.2 mmHg; Base Excess ABG -6.3 mEq/l (+/-2.0); Carboxyhemoglobin 0.2 % THb (0-2.0); Fractional Inspired Oxygen 100 %; Methemoglobin ABG 0.6 %THb (0-1.5); Oxygen Content ABG 14.1 %vol (16.0-22.0); Oxygen Saturation ABG 99.4 % (95.0-100.0); Oxyhemoglobin 97.7 % THb (90.0-100.0); PCO2 ABG 36.8 mmHg (35.0-45.0); PO2 FiO2 Ratio Arterial Blood 2.14 %; Reduced Hemoglobin 1.5 %THb (0-5.0); Total Hemoglobin 9.9 g/dL (12.0-18.0)
[2019-07-27 12:23] LABS: Arterial Blood Gas PEEP 14 cmH2O; Arterial Blood Gas Tidal Volume 320 ml; Arterial Blood Gas Vent Mode CMV; Arterial Blood Gas Ventilator rate 24 /MIN; Device VENTILATOR; Modified Allen's Test Pass; Site Drawn LEFT RADIAL
--- NOTE | 2019-07-27 12:56 | P.PCNBED_ITS ---
Procedures Intubation: Intubation Date: 07/27/19 Intubation Time: 08:34 A pre- procedural Time-Out was completed immediately before starting the procedure and confirmed: Patient Identification, Site, Procedure, Patient Position and the Availability of Requisite Equipment: Yes Sedative: etomidate Paralytic: succinylcholine Laryngoscope: fiber optic video scope Assist device used: fiber optic device ET tube size: 7.5 Tube secured depth (cm): 23 Tube secured location: lips Tube placement confirmation: visualized tube passing through cords, equal breath sounds bilaterally, no breath sounds over epigastrium and confirmation by capnometry Patient tolerated procedure: well and no complications Intubation complications: none Additional comments: After obtaining consent from the patient and her son and explaining the rationale for intubation. it was decided to go ahead and intubate the patient. The patient was lying in the supine position. Preoxygenation via BVM was provided for a minimum of 3 minutes. The patient had continuous cardiac as well as pulse oximetry monitoring during the procedure. Rapid sequence induction was provided by administration of Etomidate and Succinylcholine. A Glidescope blade 4 was used to directly visualize the vocal cords. A 7.5 mm endotracheal tube was visualized advancing between the cords to a level of 23 cm at the lip. The stylette was then removed. Tube placement was also noted by fogging in the tube, equal and bilateral breath sounds, no sounds over the epigastrium, and end-tidal colorimetric monitoring. The cuff was then inflated with 10 ml of air and the tube secured using a commercially available device. A good pulse oximetry wave form was seen on the monitor throughout the procedure. The patient was then connected to the ventilator at a tidal volume of 320 ml; rate of 20; FiO2 of 80%; and PEEP of 10. A portable chest x-ray has been ordered for placement. Continued sedation will be provided by Fentanyl and Versed continuous infusion titrated to a RASS of -2. The patient tolerated the procedure well.
--- NOTE | 2019-07-27 12:58 | WPDINTPN ---
Progress Note: A&P Assessment and Plan (1) Acute respiratory failure: Qualifiers: Respiratory failure complication: unspecified whether with hypoxia or hypercapnia Qualified Code(s): J96.00 - Acute respiratory failure, unspecified whether with hypoxia or hypercapnia Code(s): J96.00 - Acute respiratory failure, unspecified whether with hypoxia or hypercapnia Status: Acute Assessment and Plan: patient presented with pneumonia, this morning she had impending respiratory failure with respiratory rates 40s and 50s, severe shortness of breath, shallow respirations. Discussed with patient and her son and they were okay with intubation and placing her on mechanical ventilation. Patient was intubated on 07/27/2019 - ARDS physiology on chest x-ray - no tidal volume and high peep strategy will be used - patient on bronchodilators - ABGs and chest x-ray reviewed - fentanyl and Versed for sedation, maintain RASS of 0 to -2, daily sedation vacation (2) Septic shock: Code(s): A41.9 - Sepsis, unspecified organism; R65.21 - Severe sepsis with septic shock Status: Acute Assessment and Plan: patient presented with shortness of breath, cough, vaginal infection - patient was hypotensive in the ED, received adequate IV fluids, vasopressor requirements of common out, will maintain mean arterial pressure . 65 mmHg - likely source, lungs and or vaginal infection - continue cefepime, vancomycin,Flagyl - blood and urine cultures are negative. sputum cultures are pending - continue maintenance IV fluids (3) Pneumonia: Qualifiers: Pneumonia type: due to unspecified organism Laterality: unspecified laterality Lung location: unspecified part of lung Qualified Code(s): J18.9 - Pneumonia, unspecified organism Code(s): J18.9 - Pneumonia, unspecified organism Status: Acute Assessment and Plan: chest x-ray shows bilateral diffuse interstitial infiltrates, could be pneumonia, pulmonary vascular congestion - continue antibiotics as above, sputum cultures have been ordered (4) Vaginal infection: Code(s): N76.0 - Acute vaginitis Status: Acute Assessment and Plan: patient was recently seen by OBGYN, was told that she has a bacterial vaginal infection - was started on doxycycline and Flagyl orally, patient did not like the taste of those medications so she had stopped taking them - continue Flagyl (5) Pulmonary edema: Qualifiers: Chronicity: acute Qualified Code(s): J81.0 - Acute pulmonary edema Code(s): J81.1 - Chronic pulmonary edema Status: Acute Assessment and Plan: patient on 4 L nasal cannula with adequate O2 sats, - will place on BiPAP if needed - hold diuresis at this time since patient is in septic shock on Levophed - echocardiogram done on 07/26/2019: LV systolic function is hyperdynamic with estimated EF greater than 70%. Grade 2 diastolic dysfunction. Mild mitral valve regurg, mild tricuspid valve regurg, Focal echogenicity at posterior leaflet chordal insertion most likely calcificed submitral apparatus. However, cannot exclude vegetation. Clinical correlation advised. moderate pulmonary hypertension, RVSP 45 mmHg (6) Acute renal failure superimposed on stage 4 chronic kidney disease: Onset Date: ~07/2019 Qualifiers: Acute renal failure type: unspecified Qualified Code(s): N17.9 - Acute kidney failure, unspecified; N18.4 - Chronic kidney disease, stage 4 (severe) Code(s): N17.9 - Acute kidney failure, unspecified; N18.4 - Chronic kidney disease, stage 4 (severe) Status: Acute Assessment and Plan: patient with history of stage 4 chronic kidney disease, - acute on chronic kidney disease likely related to septic shock, hypovolemia, ATN - patient adequately fluid-resuscitated, creatinine better this morning - continue to monitor urine output, electrolytes and renal
--- NOTE | 2019-07-27 16:40 | PM.IMPN ---
Progress Note: A&P Assessment and Plan (1) Septic shock: Code(s): A41.9 - Sepsis, unspecified organism; R65.21 - Severe sepsis with septic shock Status: Acute Assessment and Plan: Patient is 59-year-old female presented emergency department with persistent cough abdominal pain nausea vomiting, patient also had vaginal discharge and she was seen by her envelope press operator diagnosed with bacterial vaginosis started the patient on Flagyl and doxycycline however patient did not take the medication because as see did not like the taste of the medications, see presented emergency department with a complaint of persistent cough C found to pneumonia and see was in sepsis with hypotension however patient lactic acid is normal as well as white counts are normal, patient was started on Levophed vigorously hydrated seen by insole and outsole splitter and being treated with Cefepime, vancomycin and Flagyl, Patient patient went into respiratory distress and had to be intubated most likely worsening pneumona currently patient on vent, her family is present in the room (2) Pulmonary edema: Qualifiers: Chronicity: acute Qualified Code(s): J81.0 - Acute pulmonary edema Code(s): J81.1 - Chronic pulmonary edema Status: Acute Assessment and Plan: Patient with pulmonary edema most likely secondary to acute on chronic diastolic dysfunction however currently patient is hypotensive, and hydrated concern for volume overload seen by insole and outsole splitter and further recommendation to follow (3) Normocytic anemia: Code(s): D64.9 - Anemia, unspecified Status: Acute Assessment and Plan: acute vs. chronic. No history of bleeding. Monitor H/H, transfuse prn. (4) Transaminitis: Code(s): R74.0 - Nonspecific elevation of levels of transaminase and lactic acid dehydrogenase [LDH] Status: Acute Assessment and Plan: Likely secondary to hypoperfusion. Monitor LFTs and consider further studies if the patient's transaminitis doesn't resolve. (5) Seizure: Code(s): R56.9 - Unspecified convulsions Status: Acute Assessment and Plan: The pateint has had an acute seizure the day before yesterday. We will continue her Carbamazepine. Seizure precautions. Consider Neurology consultation today. (6) Vaginal infection: Code(s): N76.0 - Acute vaginitis Status: Acute Assessment and Plan: It's not entirely clear what kind of vaginal infection the patient is being treated for. We will need to obtain outside records in the morning from her Pacu Nurse office. Continue antibiotic therapy. Plan is above (7) Acute renal failure superimposed on stage 4 chronic kidney disease: Onset Date: ~07/2019 Qualifiers: Acute renal failure type: unspecified Qualified Code(s): N17.9 - Acute kidney failure, unspecified; N18.4 - Chronic kidney disease, stage 4 (severe) Code(s): N17.9 - Acute kidney failure, unspecified; N18.4 - Chronic kidney disease, stage 4 (severe) Status: Acute Assessment and Plan: Likely secondary to hypoperfusion from septic shock. Monitor renal function. Renally dose medications. Avoid nephrotoxic medications. (8) Hypertension: Qualifiers: Hypertension type: unspecified Qualified Code(s): I10 - Essential (primary) hypertension Code(s): I10 - Essential (primary) hypertension Status: Chronic Assessment and Plan: Hold home anithypertensive medications as the patient has septic shock. resume when appropriate. (9) Elevated cholesterol: Code(s): E78.00 - Pure hypercholesterolemia, unspecified Status: Chronic Assessment and Plan: Continue statin therapy. (10) Acute respiratory failure: Qualifiers: Respiratory failure complication: unspecified whether with hypoxia or hypercapnia Qualified Code(s): J96.00 - Acute respiratory failure, unspecified whether with hypoxia or hypercapnia Code(
--- NOTE | 2019-07-27 16:53 | WPDINFPN2 ---
Progress Note: A&P Assessment and Plan (1) Pneumonia: Qualifiers: Pneumonia type: due to unspecified organism Laterality: unspecified laterality Lung location: unspecified part of lung Qualified Code(s): J18.9 - Pneumonia, unspecified organism Code(s): J18.9 - Pneumonia, unspecified organism Status: Acute Assessment and Plan: 1. Lung infiltrates, infectious vs other 2. MV abnormality 3. Respiratory failure 4. Cirrhosis 5. Renal failure REC Cefepime #2. Hold other rx. Flu screen, viral and bacterial cultures of tracheal aspirate. BCs in process. No PATRICK needed from my standpoint, unless new clinical developments that are more specific for endocarditis. Subjective Date/time seen: 07/27/19 16:53 Objective Data Vital Signs Vital Signs: Vital Signs - 24 hr 07/26/19 18:00 07/26/19 20:00 07/26/19 20:05 Temperature Pulse Rate 95 114 H Respiratory Rate 22 H 28 H Blood Pressure 93/48 L Pulse Oximetry 97 88 L 94 07/26/19 20:07 07/26/19 20:15 07/26/19 20:30 Temperature Pulse Rate 98 102 H 104 H Respiratory Rate 24 H 38 H 28 H Blood Pressure 94/36 L 94/35 L Pulse Oximetry 88 L 92 07/26/19 20:45 07/26/19 20:53 07/26/19 21:00 Temperature Pulse Rate 98 109 H Respiratory Rate 36 H 31 H Blood Pressure 95/37 L 113/44 L Pulse Oximetry 93 93 07/26/19 21:15 07/26/19 22:00 07/26/19 22:30 Temperature 36.6 C Pulse Rate 114 H 108 H 102 H Respiratory Rate 28 H 26 H 24 H Blood Pressure 103/54 L 108/50 L 116/55 L Pulse Oximetry 94 94 94 07/26/19 23:00 07/27/19 00:00 07/27/19 02:00 Temperature 36.6 C Pulse Rate 98 96 98 Respiratory Rate 26 H 28 H 38 H Blood Pressure 108/54 L 96/39 L 102/55 L Pulse Oximetry 96 96 07/27/19 02:06 07/27/19 03:26 07/27/19 06:00 Temperature 36.7 C Pulse Rate 106 H 104 H 108 H Respiratory Rate 30 H 28 H 28 H Blood Pressure 87/70 L Pulse Oximetry 94 91 01/21/20 07:56 07/27/19 08:00 07/27/19 08:06 Temperature 37.3 C Pulse Rate 108 H 102 H 109 H Respiratory Rate 28 H 17 32 H Blood Pressure 98/74 L Pulse Oximetry 94 96 07/27/19 08:55 07/27/19 10:00 07/27/19 12:00 Temperature 37.7 C H Pulse Rate 111 H 98 88 Respiratory Rate 31 H 21 H Blood Pressure 95/37 L 92/56 L Pulse Oximetry 100 100 100 07/27/19 13:46 07/27/19 13:56 07/27/19 14:00 Temperature Pulse Rate 96 98 106 H Respiratory Rate 29 H 26 H 29 H Blood Pressure 104/45 L Pulse Oximetry 98 97 07/27/19 16:44 Temperature Pulse Rate 97 Respiratory Rate Blood Pressure Pulse Oximetry 94 Intake/Output Intake/Output: Intake & Output 07/24/19 07/25/19 07/26/19 07/27/19 23:59 23:59 23:59 23:59 Intake Total 3620 3600 Output Total 2150 2000 Balance 1470 1600 Meds/Results Medications: Active Medications Generic Name Dose Route Start Last Admin Trade Name Freq PRN Reason Stop Dose Admin Acetaminophen 650 mg 07/26/19 06:19 07/26/19 19:56 Tylenol Tablet PO 650 mg Q4H PRN Administration Mild Pain (1-3) or Fever Albuterol 5 mg 07/26/19 08:00 07/27/19 13:46 Albuterol Sulf Neb 2.5mg/0.5ml INHALATION 5 mg Q6HRT RYDER Administration Benzocaine 1 lozenge 07/27/19 06:13 Chloraseptic Lozenge PO PRN PRN Sore Throat Calcium Carbonate 200 mg 07/26/19 09:00 07/27/19 09:13 Tums PO Not Given BID RYDER Carbamazepine 100 mg 07/26/19 21:00 07/27/19 09:13 Tegretol Chew PO Not Given Q12HR RYDER Guaifenesin 600 mg 07/26/19 21:00 07/27/19 09:15 Mucinex 12 Hr Tab PO Not Given Q12HR RYDER Guaifenesin/Dextromethorphan 10 ml 07/26/19 06:16 07/27/19 02:18 Robitussin-Dm Syrup PO 07/28/19 07:00 10 ml Q4H PRN Administration Cough Heparin Sodium (Porcine) 5,000 units 07/26/19 09:00 07/27/19 09:43 Heparin Sodium SUB-Q 5,000 units Q12HR RYDER Administration Norepinephrine Bitartrate 8 mg in 250 mls @ 37.5 mls/hr 07/26/19 03:50 07/27/19 13:40
[2019-07-27] MEDS: LACTATED RINGERS 1,000 ML 75 ML IV CONT (17:31)
[2019-07-27] MEDS: MIDAZOLAM HCL 50 MG in DEXTROSE 5% 90 ML 12 MG IV CONT (18:21)
[2019-07-27] MEDS: NOREPINEPHRINE 8 MG/D5W 250 ML 8 MG/250 ML BAG 37.5 MG IV CONT (18:23)
[2019-07-27] MEDS: ACETAMINOPHEN 325 MG TABLET 650 MG PO (20:57)
[2019-07-27] MEDS: CARBAMAZEPINE 100 MG CHEW PO (21:24)
[2019-07-28] VITALS (31 sets, daily range): BP systolic 92–155; BP diastolic 49–72; PULSE 65–124; RESP 24–28; TEMP 36.6–38.3; O2SAT 85–100; BMI 41.1
[2019-07-28 00:55] LABS: Influenza Control Positive
[2019-07-28] MEDS: VASOPRESSIN INJ 100 UNITS in DEXTROSE 5% 95 ML IV CONT (01:14)
[2019-07-28] MEDS: NOREPINEPHRINE 8 MG/D5W 250 ML 8 MG/250 ML BAG 41.3 MG IV CONT (01:17)
[2019-07-28] MEDS: MIDAZOLAM HCL 50 MG in DEXTROSE 5% 90 ML 12 MG IV CONT ×3 (02:40→19:42)
[2019-07-28] MEDS: IPRATROPIUM BR 0.02% INH SOLN 0.5 MG/2.5 ML VIAL INHALATION ×4 (02:51→20:39)
[2019-07-28] MEDS: ALBUTEROL SULFATE NEB 2.5 MG/0.5 ML INH 5 MG INHALATION ×4 (02:51→20:39)
[2019-07-28 04:29] LABS: Hematocrit 28.4 % (37.0-47.0); Hemoglobin 8.7 g/dL (12.0-15.0); Mean Corpuscular HGB Conc 30.6 g/dl (32-36); Mean Corpuscular Hemoglobin 28.4 pg (26-34); Mean Corpuscular Volume 92.8 fl (80-100); Mean Platelet Volume 8.7 fl (7.4-10.4); Platelet Count Result 226 k/mm3 (150-375); Red Blood Count 3.06 M/mm3 (4.2-5.4); Red Cell Distribution Width 13.9 % (11.5-14.5); White Blood Count 12.7 K/mm3 (4.5-10.0)
[2019-07-28 04:48] LABS: Lactic Acid 2.1 mmol/L (0.7-2.1)
[2019-07-28 04:59] LABS: Alanine Aminotransferase 39 U/L (4-35); Albumin Level 2.6 g/dL (3.5-5.1); Alkaline Phosphatase 102 U/L (38-126); Aspartate Amino Transferase 34 U/L (14-36); Bilirubin,Total 0.5 mg/dL (0.2-1.3); Blood Urea Nitrogen 28 mg/dL (7-17); Calcium 8.7 mg/dL (8.4-10.2); Carbon Dioxide 24 mmol/L (22-30); Chloride 105 mmol/L (98-107); Estimated CRCL calculation 29 ml/min; Estimated Glomerular Filt Rate 27; Glucose 142 mg/dL (65-105); Phosphorus 3.2 mg/dL (2.5-4.5); Potassium 4.3 mmol/L (3.4-5.0); Sodium 136 mmol/L (137-145)
[2019-07-28] MEDS: ACETAMINOPHEN 325 MG TABLET 650 MG PO (05:34)
[2019-07-28 05:38] LABS: Alveolar/Arterial O2 Gradient 388.1 mmHg; Base Excess ABG -8.2 mEq/l (+/-2.0); Carboxyhemoglobin 0.3 % THb (0-2.0); Fractional Inspired Oxygen 70 %; HCO3 ABG 20.2 mEq/l (22.0-26.0); Methemoglobin ABG 0.5 %THb (0-1.5); Oxygen Content ABG 11.5 %vol (16.0-22.0); Oxyhemoglobin 81.5 % THb (90.0-100.0); PCO2 ABG 55.5 mmHg (35.0-45.0); PO2 ABG 51.3 mmHg (80.0-100.0); PO2 FiO2 Ratio Arterial Blood 0.73 %; Reduced Hemoglobin 17.7 %THb (0-5.0)
[2019-07-28 05:42] LABS: pH ABG 7.178 (7.350-7.450)
[2019-07-28 05:43] LABS: Device VENTILATOR; Modified Allen's Test Pass; Oxygen Saturation ABG 76.6 % (95.0-100.0); Site Drawn LEFT BRACHIAL
[2019-07-28 05:44] LABS: Arterial Blood Gas PEEP 12 cmH2O; Arterial Blood Gas Tidal Volume 320 ml; Arterial Blood Gas Vent Mode CMV; Arterial Blood Gas Ventilator rate 24 /MIN
[2019-07-28 06:01] LABS: CRP 22.9 mg/dL (<1.0)
--- NOTE | 2019-07-28 06:24 | CONS_ITS ---
DATE OF CONSULTATION: 07/27/2019 REASON FOR CONSULTATION: Mitral valve abnormality. HISTORY OF PRESENT ILLNESS: Ms. Winn is a 59-year-old female, who cannot provide any history, as she is intubated. She was originally admitted to the hospital yesterday with intractable coughing, intermittent fever, shortness of breath, all about 7 days duration, also with nausea, vomiting, or diarrhea, not otherwise specified and abdominal cramping. She had a fever up to 38.9 about 3 days before admission as well as recurrence of her seizure disorder. She saw her oyster planter shortly before admission and found to have a bacterial infection presumably in the pelvis and was given metronidazole and doxycycline, but she could not tolerate the taste. Here the patient had hypotension despite fluid resuscitation and is now on norepinephrine 20 mcg. She has been given vancomycin and levofloxacin and a right IJ triple-lumen catheter was placed. She is also sedated now. Cefepime was added yesterday and she remains on that. Her hospital course has also been complicated by elevated transaminases. A transthoracic echocardiogram was obtained with mitral valve thickening or mass posterior leaflet and consultation was requested. PRESENT MEDICATIONS: List reviewed. No immunosuppressants. HABITS: Quit smoking 11 years ago. No alcohol. ALLERGIES: AZITHROMYCIN, UNKNOWN REACTION. PENICILLIN CAUSED NAUSEA AND VOMITING, OTHERS NOT PERTINENT. PAST MEDICAL HISTORY: Stroke, hyperlipidemia, hypertension, stage IV chronic renal insufficiency, and seizure disorder. FAMILY HISTORY: Hypertension, asthma, COPD, and brain cancer. SOCIAL HISTORY: There is no family at the bedside presently. She is listed as living locally, and disabled. REVIEW OF SYSTEMS: Otherwise 14-point review negative though not directly obtainable from the patient due to intubated status and sedation. PHYSICAL EXAMINATION: GENERAL: This is a middle-aged female, who appears older than her actual age on the ventilator, norepinephrine 20 mcg. VITAL SIGNS: 106, 104/45, 29, 97% on 80% FiO2. SKIN: Warm and dry. No generalized rashes. No erythroderma. EENT: Conjunctivae are normal. She resists full eye exam. Oral exam is impossible due to multiple tubes, but brief inspection appears normal. Otherwise, she has no paranasal sinus, erythema, edema, tenderness and face is symmetric. NECK: No masses, meningismus, asymmetry. LUNGS: Diminished breath sounds with dry rales throughout. No wheezing. Clear to percussion. CARDIAC: Regular rate and rhythm. She has no murmurs, gallops. No heaves. PMI cannot be appreciated. ABDOMEN: Morbidly obese. No tenderness is apparent, though she is sedated. She is hypoactive, but present bowel sounds. No hepatosplenomegaly. No masses. EXTREMITIES: No clubbing, cyanosis, or edema. She has no splinter hemorrhages. No venous varicosities. No calf irregularity. LABORATORY DATA: Blood cultures, no growth after 1-1/2 days incubation. MRSA screen negative from the nare and urine culture, no growth final. White count 13.8, hemoglobin 8.7, platelets are 242, her differential minimal left shift. Blood gases 7.33, 37, 214, 19, 99% on the noted ventilator settings. BUN 38, creatinine 2.1. Estimated GFR 24, glucose 157. AST and ALT are minimally high at 42 and 47, alkaline phosphatase normal. Albumin 2.8. Her urinalysis, trace leukocyte esterase, otherwise normal. RADIOLOGY: I personally reviewed her chest x-ray. She has diffuse fluffy lung infiltrates 5 lobes. No effusions. Normal heart size on portable technique. The radiologist's interpretation also has been reviewed by myself. Echocardiogram with Doppler showed thickening of the mitral valve with restricted motion, posterior leaflet fo
[2019-07-28] MEDS: LACTATED RINGERS 1,000 ML 75 ML IV CONT ×2 (06:59→18:25)
[2019-07-28] MEDS: PANTOPRAZOLE SODIUM IV 40 MG VIAL IV PUSH (08:26)
[2019-07-28] MEDS: HEPARIN SODIUM 5,000 UNITS/ML VIAL 5000 UNITS SUB-Q ×2 (08:26→20:01)
[2019-07-28] MEDS: NOREPINEPHRINE 8 MG/D5W 250 ML 8 MG/250 ML BAG 37.5 MG IV CONT (08:31)
--- NOTE | 2019-07-28 09:18 | P.PCNBED_ITS ---
Procedures Arterial Line: Arterial Line Date: 07/28/19 Arterial Line Time: 09:18 Discussed with the patient/family/POA, the non-emergent placement of an arterial catheter, including its clinical necessity/indication and associated potential risks and complications: Yes Patient/family/POA and/or understand(s) and acknowledge(s) the need to proceed with the arterial catheter insertion as an important element of the patient's clinical management: Yes A pre-procedural Time-Out was completed immediately before starting the procedure and confirmed: Patient Identification, Site, Procedure, Patient Position and the Availability of Requisite Equipment: Yes Patient Position: supine Food Service Director Prep: sterile gloves, mask and hat Site: right and radial Site Prep: chlorhexidine Technique used: ultrasound-guided Size (Gauge): 14 Length: 4.4 cm Closure/Dressing: suture, antimicrobial disc and tegaderm Patient tolerated procedure: well Complications: none
[2019-07-28] MEDS: SODIUM CHLORIDE 0.9% IV 1,000 ML 3 ML (09:30)
[2019-07-28 09:38] LABS: Alveolar/Arterial O2 Gradient 335.9 mmHg; Base Excess ABG -5.3 mEq/l (+/-2.0); Carboxyhemoglobin 0.2 % THb (0-2.0); Fractional Inspired Oxygen 100 %; HCO3 ABG 19.9 mEq/l (22.0-26.0); Methemoglobin ABG 0.6 %THb (0-1.5); Oxygen Content ABG 14.7 %vol (16.0-22.0); Oxygen Saturation ABG 99.7 % (95.0-100.0); PCO2 ABG 37.8 mmHg (35.0-45.0); PO2 ABG 339.3 mmHg (80.0-100.0); PO2 FiO2 Ratio Arterial Blood 3.39 %; Reduced Hemoglobin 1.2 %THb (0-5.0); Site Drawn ARTLINE
[2019-07-28 09:39] LABS: Arterial Blood Gas PEEP 14 cmH2O; Arterial Blood Gas Tidal Volume 320 ml; Arterial Blood Gas Vent Mode CMV; Arterial Blood Gas Ventilator rate 28 /MIN; Device VENTILATOR
--- NOTE | 2019-07-28 11:08 | PCDIET ---
ICU Rounding Note: Patient remains intubated; NPO with no nutrition support ordered at this time. Last recorded weight is 95.5kg which is stable. Bowel Motility: No documented bowel movement. Labs Reviewed: Glu (142), BUN (28), Cr (1.9), Na (136), Alb (2.6) Meds Noted: Nimbex, Versed, Levophed, Fentanyl, Protonix, LR @ 75mL/hr Additional Notes: Discussed with MD. No plan to start tube feeding today due to overall condition, high O2 requirements, but plan to initiate when medically appropriate. Following daily in ICU rounds. Assessing/reassessing every 3 days.
--- NOTE | 2019-07-28 12:14 | WPDINFPN2 ---
Progress Note: A&P Assessment and Plan (1) Pneumonia: Qualifiers: Pneumonia type: due to unspecified organism Laterality: unspecified laterality Lung location: unspecified part of lung Qualified Code(s): J18.9 - Pneumonia, unspecified organism Code(s): J18.9 - Pneumonia, unspecified organism Status: Acute Assessment and Plan: 1. Lung infiltrates, infectious vs other. Still febrile. Flu screen NR. Viral and bacterial cultures transtracheal are in process. I personnally reviewed today CXR: no change in lung infiltrates 2. MV abnormality, of questionable significance 3. Respiratory failure 4. Cirrhosis 5. Renal failure REC Cefepime #3, continue, no change in dosing. Micro in process. No PATRICK needed from my standpoint, unless new clinical developments that are more specific for endocarditis. Subjective Date/time seen: 07/28/19 12:14 Interval history: sedated and paralyzed. Norepi 17 mcg, done from 20 yesterday Exam Narrative: Exam Narrative: t max 39.0 Const: General: no acute distress Eyes: General: appearance normal, both eyes and all related structures Resp: Auscultation: rales Other: breath sounds decreased on left. Vesicular throughout Cardio: Rate: regular rate Rhythm: regular rhythm GI: GI Palp: Yes Soft to palpation and No Tenderness to palpation present (GI) Urinary Catheter: Urinary Catheter: patent and draining Skin: General skin exam: normal color Other: r radial art line Objective Data Vital Signs Vital Signs: Vital Signs - 24 hr 07/27/19 13:46 07/27/19 13:56 07/27/19 14:00 Temperature Pulse Rate 96 98 106 H Respiratory Rate 29 H 26 H 29 H Blood Pressure 104/45 L Pulse Oximetry 98 97 07/27/19 16:00 07/27/19 16:44 07/27/19 18:00 Temperature 37.5 C Pulse Rate 95 97 106 H Respiratory Rate 25 H 28 H Blood Pressure 106/71 97/59 L Pulse Oximetry 100 94 94 07/27/19 20:00 07/27/19 20:57 07/27/19 21:17 Temperature 39.0 C H Pulse Rate 104 H 122 H Respiratory Rate 24 H Blood Pressure Pulse Oximetry 100 100 07/27/19 21:31 07/27/19 22:00 07/27/19 22:13 Temperature 37.4 C Pulse Rate 126 H 114 H Respiratory Rate 24 H 24 H Blood Pressure 90/46 L 100/46 L Pulse Oximetry 100 07/27/19 23:11 07/28/19 00:00 07/28/19 02:00 Temperature 36.6 C Pulse Rate 98 97 81 Respiratory Rate 24 H 24 H Blood Pressure 113/54 L 135/67 Pulse Oximetry 100 100 100 07/28/19 02:51 07/28/19 03:04 07/28/19 04:00 Temperature 36.9 C Pulse Rate 95 95 108 H Respiratory Rate 24 H 24 H 24 H Blood Pressure 99/63 L Pulse Oximetry 96 98 07/28/19 05:23 07/28/19 05:34 07/28/19 06:00 Temperature 37.6 C 38.3 C H Pulse Rate 124 H 124 H Respiratory Rate 25 H Blood Pressure 107/56 L Pulse Oximetry 85 L 98 07/28/19 06:34 07/28/19 08:00 07/28/19 09:34 Temperature 37.7 C H 37.7 C H Pulse Rate 88 90 Respiratory Rate 28 H 25 H Blood Pressure 155/72 H Pulse Oximetry 100 07/28/19 09:37 07/28/19 09:51 07/28/19 10:00 Temperature Pulse Rate 95 95 94 Respiratory Rate 28 H 28 H Blood Pressure 106/52 L Pulse Oximetry 100 100 07/28/19 11:15 07/28/19 12:00 Temperature 37.2 C Pulse Rate 87 79 Respiratory Rate 28 H Blood Pressure 127/58 L Pulse Oximetry 100 100 Intake/Output Intake/Output: Intake & Output 07/25/19 07/26/19 07/27/19 07/28/19 23:59 23:59 23:59 23:59 Intake Total 3620 4900 2003.7 Output Total 2150 3400 625 Balance 1470 1500 1378.7 Meds/Results Medications: Active Medications Generic Name Dose Route Start Last Admin Trade Name Freq PRN Reason Stop Dose Admin Acetaminophen 650 mg 07/26/19 06:19 07/28/19 05:34 Tylenol Tablet PO 650 mg Q4H PRN Administration Mild Pain (1-3) or Fever Albuterol 5 mg 07/26/19 08:00 07/28/19 09:34 Albuterol Sulf Neb 2.5mg/0.5ml INHALATION 5 mg Q6HRT RYDER Administration Benzocaine 1 lozenge 07/27/19 06:13 Chlorasept
[2019-07-28 13:12] LABS: Alveolar/Arterial O2 Gradient 198.1 mmHg; Base Excess ABG -4.8 mEq/l (+/-2.0); Fractional Inspired Oxygen 60 %; HCO3 ABG 19.1 mEq/l (22.0-26.0); Oxygen Content ABG 13.8 %vol (16.0-22.0); Oxygen Saturation ABG 99.4 % (95.0-100.0); Oxyhemoglobin 97.9 % THb (90.0-100.0); PCO2 ABG 30.8 mmHg (35.0-45.0); PO2 ABG 195.8 mmHg (80.0-100.0); PO2 FiO2 Ratio Arterial Blood 3.26 %; Total Hemoglobin 9.7 g/dL (12.0-18.0)
[2019-07-28 13:13] LABS: Arterial Blood Gas PEEP 14 cmH2O; Arterial Blood Gas Tidal Volume 320 ml; Arterial Blood Gas Vent Mode CMV; Arterial Blood Gas Ventilator rate 28 /MIN; Device VENTILATOR; Site Drawn ARTLINE
--- NOTE | 2019-07-28 13:24 | WPDINTPN ---
Progress Note: A&P Assessment and Plan (1) Acute respiratory failure: Qualifiers: Respiratory failure complication: unspecified whether with hypoxia or hypercapnia Qualified Code(s): J96.00 - Acute respiratory failure, unspecified whether with hypoxia or hypercapnia Code(s): J96.00 - Acute respiratory failure, unspecified whether with hypoxia or hypercapnia Status: Acute Assessment and Plan: patient presented with pneumonia, Chest x-ray were similar bilateral diffuse infiltrates, likely ARDS physiology. Patient was intubated 07/27/2019 - chest x-ray and ABGs reviewed, ventilator adjusted. Will use low tidal volume and high peep strategy - arterial line inserted this morning, - patient on bronchodilators - fentanyl and Versed for sedation, maintain RASS of 0 to -2, daily sedation vacation (2) Septic shock: Code(s): A41.9 - Sepsis, unspecified organism; R65.21 - Severe sepsis with septic shock Status: Acute Assessment and Plan: patient presented with shortness of breath, cough, vaginal infection - patient was hypotensive in the ED, received adequate IV fluids, vasopressor requirements increased With addition of vasopressin to Levophed. Vasopressin has been turned off, Levophed is being weaned down to maintain a mean arterial pressures greater than 65 mmHg - likely source, lungs and or vaginal infection - appreciate infectious disease evaluation and recommendations, continue cefepime. ( vancomycin and Flagyl have been discontinued) - blood and urine cultures are negative. sputum cultures are pending - influenza A and B are negative - continue maintenance IV fluids (3) Pneumonia: Qualifiers: Pneumonia type: due to unspecified organism Laterality: unspecified laterality Lung location: unspecified part of lung Qualified Code(s): J18.9 - Pneumonia, unspecified organism Code(s): J18.9 - Pneumonia, unspecified organism Status: Acute Assessment and Plan: chest x-ray shows bilateral diffuse interstitial infiltrates, could be pneumonia, pulmonary vascular congestion - continue antibiotics as above, sputum cultures have been ordered and pending (4) Vaginal infection: Code(s): N76.0 - Acute vaginitis Status: Acute Assessment and Plan: patient was recently seen by OBGYN, was told that she has a bacterial vaginal infection - was started on doxycycline and Flagyl orally, patient did not like the taste of those medications so she had stopped taking them - infectious disease following and discontinued Flagyl (5) Pulmonary edema: Qualifiers: Chronicity: acute Qualified Code(s): J81.0 - Acute pulmonary edema Code(s): J81.1 - Chronic pulmonary edema Status: Acute Assessment and Plan: patient on 4 L nasal cannula with adequate O2 sats, - will place on BiPAP if needed - hold diuresis at this time since patient is in septic shock on Levophed - echocardiogram done on 07/26/2019: LV systolic function is hyperdynamic with estimated EF greater than 70%. Grade 2 diastolic dysfunction. Mild mitral valve regurg, mild tricuspid valve regurg, Focal echogenicity at posterior leaflet chordal insertion most likely calcificed submitral apparatus. However, cannot exclude vegetation. Clinical correlation advised. moderate pulmonary hypertension, RVSP 45 mmHg (6) Acute renal failure superimposed on stage 4 chronic kidney disease: Onset Date: ~07/2019 Qualifiers: Acute renal failure type: unspecified Qualified Code(s): N17.9 - Acute kidney failure, unspecified; N18.4 - Chronic kidney disease, stage 4 (severe) Code(s): N17.9 - Acute kidney failure, unspecified; N18.4 - Chronic kidney disease, stage 4 (severe) Status: Acute Assessment and Plan: patient with history of stage 4 chronic kidney disease, - acute on chronic kidney disease likely related to septic shock, hypovo
[2019-07-28] MEDS: HYDROCORTISONE SODIUM SUCCINATE 100 MG/2 ML VIAL IV PUSH ×2 (14:16→21:06)
--- NOTE | 2019-07-28 14:38 | PM.IMPN ---
Progress Note: A&P Assessment and Plan (1) Septic shock: Code(s): A41.9 - Sepsis, unspecified organism; R65.21 - Severe sepsis with septic shock Status: Acute Assessment and Plan: 07/28/19 14:38 Patient is 59-year-old female presented emergency department with persistent cough abdominal pain nausea vomiting, patient also had vaginal discharge and she was seen by her principal network engineer diagnosed with bacterial vaginosis started the patient on Flagyl and doxycycline however patient did not take the medication because as see did not like the taste of the medications, see presented emergency department with a complaint of persistent cough C found to pneumonia and see was in sepsis with hypotension however patient lactic acid is normal as well as white counts are normal, patient was started on Levophed vigorously hydrated seen by slagger and being treated with Cefepime, vancomycin and Flagyl, Patient patient went into respiratory distress and had to be intubated most likely worsening pneumona currently patient on vent sedated and paralyzed as patient was quited anxious and agitated (2) Pulmonary edema: Qualifiers: Chronicity: acute Qualified Code(s): J81.0 - Acute pulmonary edema Code(s): J81.1 - Chronic pulmonary edema Status: Acute Assessment and Plan: Patient with pulmonary edema most likely secondary to acute on chronic diastolic dysfunction however currently patient is hypotensive, and hydrated concern for volume overload seen by slagger and further recommendation to follow (3) Normocytic anemia: Code(s): D64.9 - Anemia, unspecified Status: Acute Assessment and Plan: acute vs. chronic. No history of bleeding. Monitor H/H, transfuse prn. (4) Transaminitis: Code(s): R74.0 - Nonspecific elevation of levels of transaminase and lactic acid dehydrogenase [LDH] Status: Acute Assessment and Plan: Likely secondary to hypoperfusion. Monitor LFTs and consider further studies if the patient's transaminitis doesn't resolve. (5) Seizure: Code(s): R56.9 - Unspecified convulsions Status: Acute Assessment and Plan: The pateint has had an acute seizure the day before arrival, We will continue her Carbamazepine. Seizure precautions. Consider Neurology consultation today. (6) Vaginal infection: Code(s): N76.0 - Acute vaginitis Status: Acute Assessment and Plan: It's not entirely clear what kind of vaginal infection the patient is being treated for. 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 Continue antibiotic therapy. Plan is above (7) Acute renal failure superimposed on stage 4 chronic kidney disease: Onset Date: ~07/2019 Qualifiers: Acute renal failure type: unspecified Qualified Code(s): N17.9 - Acute kidney failure, unspecified; N18.4 - Chronic kidney disease, stage 4 (severe) Code(s): N17.9 - Acute kidney failure, unspecified; N18.4 - Chronic kidney disease, stage 4 (severe) Status: Acute Assessment and Plan: Likely secondary to hypoperfusion from septic shock. Monitor renal function. Renally dose medications. Avoid nephrotoxic medications. (8) Hypertension: Qualifiers: Hypertension type: unspecified Qualified Code(s): I10 - Essential (primary) hypertension Code(s): I10 - Essential (primary) hypertension Status: Chronic Assessment and Plan: Hold home anithypertensive medications as the patient has septic shock. resume when appropriate. (9) Elevated cholesterol: Code(s): E78.00 - Pure hypercholesterolemia, unspecified Status: Chronic Assessment and Plan: Continue statin therapy. (10) Acute respiratory failure: Qualifiers: Respiratory failure complication: unspecified whether with hypoxia or hypercapnia Qualified Code(s): J96.00 - Acute respiratory failure, unspecified whe
[2019-07-28] MEDS: NOREPINEPHRINE 8 MG/D5W 250 ML 8 MG/250 ML BAG 18.8 MG IV CONT (17:18)
--- NOTE | 2019-07-28 17:19 | PM.PNNEP ---
Progress Note: A&P Assessment and Plan (1) Acute renal failure superimposed on stage 4 chronic kidney disease: Onset Date: ~07/2019 Qualifiers: Acute renal failure type: unspecified Qualified Code(s): N17.9 - Acute kidney failure, unspecified; N18.4 - Chronic kidney disease, stage 4 (severe) Code(s): N17.9 - Acute kidney failure, unspecified; N18.4 - Chronic kidney disease, stage 4 (severe) Status: Acute Assessment and Plan: The patient has chronic kidney disease. She has been seeing Dr. Solano in the office for a long time because of this. The patient has acute kidney injury superimposed on this. High as 3.2 but is now back to baseline at 1.9. She is making urine. (2) Acute respiratory failure: Qualifiers: Respiratory failure complication: unspecified whether with hypoxia or hypercapnia Qualified Code(s): J96.00 - Acute respiratory failure, unspecified whether with hypoxia or hypercapnia Code(s): J96.00 - Acute respiratory failure, unspecified whether with hypoxia or hypercapnia Status: Acute Assessment and Plan: The patient has respiratory insufficiency. She is now on the ventilator and sedated with paralytics . Oxygenation is better. (3) Cirrhosis of liver: Code(s): K74.60 - Unspecified cirrhosis of liver Status: Acute (4) Septic shock: Code(s): A41.9 - Sepsis, unspecified organism; R65.21 - Severe sepsis with septic shock Status: Acute Assessment and Plan: She has low blood pressure. She is on vasopressin and Levophed. Her blood pressure right now is in the 120s and has been more stable since on these medications. Cultures of blood urine and sputum are unremarkable. She is on broad-spectrum antibiotics Subjective Date/time seen: 07/28/19 17:19 Interval history: Patient is sedated. She has been given paralytics. Long discussion with the nurse and with the family. Still making some urine. Review of Systems Review of Systems: ROS unobtainable: unobtainable due to mental condition Constitutional: Constitutional: Reports fever(s) and Reports poor appetite Cardiovascular: Cardiovascular: Denies syncope and Reports dyspnea Respiratory: Respiratory: Reports excessive phlegm production Exam Narrative: Exam Narrative: Well developed well-nourished in no acute distress Lungs course Heart regular without rub Abdomen bowel sounds positive soft nontender Extremities no edema Skin no rash or subcu nodules Objective Data Vital Signs Vital Signs: Vital Signs - 24 hr 07/27/19 18:00 07/27/19 20:00 07/27/19 20:57 Temperature 39.0 C H Pulse Rate 106 H 104 H Respiratory Rate 28 H Blood Pressure 97/59 L Pulse Oximetry 94 100 07/27/19 21:17 07/27/19 21:31 07/27/19 22:00 Temperature 37.4 C Pulse Rate 122 H 126 H 114 H Respiratory Rate 24 H 24 H 24 H Blood Pressure 90/46 L Pulse Oximetry 100 100 07/27/19 22:13 07/27/19 23:11 07/28/19 00:00 Temperature 36.6 C Pulse Rate 98 97 Respiratory Rate 24 H Blood Pressure 100/46 L 113/54 L Pulse Oximetry 100 100 07/28/19 02:00 07/28/19 02:51 07/28/19 03:04 Temperature Pulse Rate 81 95 95 Respiratory Rate 24 H 24 H 24 H Blood Pressure 135/67 Pulse Oximetry 100 96 07/28/19 04:00 07/28/19 05:23 07/28/19 05:34 Temperature 36.9 C 37.6 C Pulse Rate 108 H 124 H Respiratory Rate 24 H Blood Pressure 99/63 L Pulse Oximetry 98 85 L 07/28/19 06:00 07/28/19 06:34 07/28/19 08:00 Temperature 38.3 C H 37.7 C H 37.7 C H Pulse Rate 124 H 88 Respiratory Rate 25 H 28 H Blood Pressure 107/56 L 155/72 H Pulse Oximetry 98 100 07/28/19 09:34 07/28/19 09:37 07/28/19 09:51 Temperature Pulse Rate 90 95 95 Respiratory Rate 25 H 28 H Blood Pressure Pulse Oximetry 100 07/28/19 10:00 07/28/19 11:15 07/28/19 12:00 Temperature 37.2 C Pulse Rate 94 87 79 Respiratory Rate 28 H 28 H Blood Pressure
--- NOTE | 2019-07-28 18:38 | PC.NURSE ---
tof checked every one hour with amp of 4 on right eye area with results being 2/4, and sa couple being 0/4 with nimbex currently going at 1.5, see mar
[2019-07-29] VITALS (27 sets, daily range): BP systolic 95–131; BP diastolic 47–82; PULSE 51–70; RESP 21–24; TEMP 35.9–36.9; O2SAT 91–100
[2019-07-29] MEDS: ALBUTEROL SULFATE NEB 2.5 MG/0.5 ML INH 5 MG INHALATION ×4 (02:01→20:04)
[2019-07-29] MEDS: IPRATROPIUM BR 0.02% INH SOLN 0.5 MG/2.5 ML VIAL INHALATION ×4 (02:01→20:04)
[2019-07-29] MEDS: MIDAZOLAM HCL 50 MG in DEXTROSE 5% 90 ML 12 MG IV CONT ×3 (03:50→20:55)
[2019-07-29 04:25] LABS: Hematocrit 23.9 % (37.0-47.0); Hemoglobin 7.7 g/dL (12.0-15.0); Mean Corpuscular HGB Conc 32.2 g/dl (32-36); Mean Corpuscular Hemoglobin 28.3 pg (26-34); Mean Corpuscular Volume 87.9 fl (80-100); Mean Platelet Volume 9.1 fl (7.4-10.4); Platelet Count Result 145 k/mm3 (150-375); Red Blood Count 2.72 M/mm3 (4.2-5.4); Red Cell Distribution Width 13.9 % (11.5-14.5); White Blood Count 8.4 K/mm3 (4.5-10.0)
[2019-07-29 04:46] LABS: Alanine Aminotransferase 27 U/L (4-35); Albumin Level 2.3 g/dL (3.5-5.1); Alkaline Phosphatase 78 U/L (38-126); Aspartate Amino Transferase 19 U/L (14-36); Bilirubin,Total 0.3 mg/dL (0.2-1.3); Blood Urea Nitrogen 26 mg/dL (7-17); Calcium 8.6 mg/dL (8.4-10.2); Carbon Dioxide 23 mmol/L (22-30); Chloride 105 mmol/L (98-107); Estimated CRCL calculation 39 ml/min; Estimated Glomerular Filt Rate 38; Glucose 152 mg/dL (65-105); Magnesium 1.9 mg/dL (1.6-2.3); Phosphorus 3.1 mg/dL (2.5-4.5); Sodium 134 mmol/L (137-145)
[2019-07-29 04:50] LABS: Alveolar/Arterial O2 Gradient 154.1 mmHg; Base Excess ABG -1.5 mEq/l (+/-2.0); Carboxyhemoglobin 0.3 % THb (0-2.0); Fractional Inspired Oxygen 35 %; HCO3 ABG 21.9 mEq/l (22.0-26.0); Methemoglobin ABG 0.5 %THb (0-1.5); Oxygen Content ABG 12.5 %vol (16.0-22.0); Oxyhemoglobin 90.3 % THb (90.0-100.0); PCO2 ABG 31.8 mmHg (35.0-45.0); PO2 ABG 58.5 mmHg (80.0-100.0); PO2 FiO2 Ratio Arterial Blood 1.67 %; Reduced Hemoglobin 8.9 %THb (0-5.0); Total Hemoglobin 9.8 g/dL (12.0-18.0); pH ABG 7.455 (7.350-7.450)
[2019-07-29 04:51] LABS: Device VENTILATOR; Site Drawn ARTLINE
[2019-07-29 04:52] LABS: Arterial Blood Gas PEEP 14 cmH2O; Arterial Blood Gas Tidal Volume 320 ml; Arterial Blood Gas Vent Mode CMV; Arterial Blood Gas Ventilator rate 24 /MIN
[2019-07-29] MEDS: HYDROCORTISONE SODIUM SUCCINATE 100 MG/2 ML VIAL IV PUSH ×3 (05:11→21:14)
[2019-07-29 05:48] LABS: Vancomycin Trough < 5.0 ug/mL (10.0-20.0)
[2019-07-29] MEDS: LACTATED RINGERS 1,000 ML 75 ML IV CONT ×2 (08:03→20:56)
[2019-07-29] MEDS: PANTOPRAZOLE SODIUM IV 40 MG VIAL IV PUSH (08:03)
[2019-07-29] MEDS: HEPARIN SODIUM 5,000 UNITS/ML VIAL 5000 UNITS SUB-Q ×2 (08:07→20:22)
--- NOTE | 2019-07-29 08:09 | PM.PNNEP ---
Progress Note: A&P Assessment and Plan (1) Acute renal failure superimposed on stage 4 chronic kidney disease: Onset Date: ~07/2019 Qualifiers: Acute renal failure type: unspecified Qualified Code(s): N17.9 - Acute kidney failure, unspecified; N18.4 - Chronic kidney disease, stage 4 (severe) Code(s): N17.9 - Acute kidney failure, unspecified; N18.4 - Chronic kidney disease, stage 4 (severe) Status: Acute Assessment and Plan: The patient has chronic kidney disease. She has been seeing Dr. Solano in the office for a long time because of this. The patient has acute kidney injury superimposed on this. Most likely ATN due to septic shock. This is recovering. Her urine output is good. Her creatinine is lower than her baseline. This is most likely because she has paralytics on board and muscle turnover is lower. Discussed with Dr. Molina (2) Acute respiratory failure: Qualifiers: Respiratory failure complication: unspecified whether with hypoxia or hypercapnia Qualified Code(s): J96.00 - Acute respiratory failure, unspecified whether with hypoxia or hypercapnia Code(s): J96.00 - Acute respiratory failure, unspecified whether with hypoxia or hypercapnia Status: Acute Assessment and Plan: The patient has respiratory insufficiency. She is now on the ventilator and sedated with paralytics . Oxygenation is better. (3) Cirrhosis of liver: Code(s): K74.60 - Unspecified cirrhosis of liver Status: Acute (4) Septic shock: Code(s): A41.9 - Sepsis, unspecified organism; R65.21 - Severe sepsis with septic shock Status: Acute Assessment and Plan: She has low blood pressure. She is better, on Levophed alone. Cultures of blood urine and sputum are unremarkable. She is on broad-spectrum antibiotics Subjective Date/time seen: 07/29/19 08:09 Interval history: Patient is sedated. She has been given paralytics. Blood pressure seems better. She is off the vasopressin. Review of Systems Review of Systems: ROS unobtainable: unobtainable due to mental condition Exam Narrative: Exam Narrative: Well developed well-nourished in no acute distress Lungs course and symmetric Heart regular without rub Abdomen bowel sounds positive soft nontender Extremities no edema Skin no rash Objective Data Vital Signs Vital Signs: Vital Signs - 24 hr 07/28/19 09:34 07/28/19 09:37 07/28/19 09:51 Temperature Pulse Rate 90 95 95 Respiratory Rate 25 H 28 H Blood Pressure Pulse Oximetry 100 07/28/19 10:00 07/28/19 11:15 07/28/19 12:00 Temperature 37.2 C Pulse Rate 94 87 79 Respiratory Rate 28 H 28 H Blood Pressure 106/52 L 127/58 L Pulse Oximetry 100 100 100 07/28/19 13:56 07/28/19 14:00 07/28/19 14:10 Temperature Pulse Rate 76 84 85 Respiratory Rate 26 H 24 H 24 H Blood Pressure 128/64 Pulse Oximetry 100 99 07/28/19 16:00 07/28/19 17:25 07/28/19 18:00 Temperature 36.9 C Pulse Rate 79 75 72 Respiratory Rate 24 H 24 H Blood Pressure 129/60 124/62 Pulse Oximetry 98 99 100 07/28/19 19:28 07/28/19 19:50 07/28/19 19:53 Temperature 37.1 C Pulse Rate 65 69 70 Respiratory Rate 24 H 24 H Blood Pressure 106/54 L Pulse Oximetry 100 100 99 07/28/19 20:00 07/28/19 20:39 07/28/19 20:50 Temperature Pulse Rate 70 71 72 Respiratory Rate 24 H 24 H Blood Pressure Pulse Oximetry 07/28/19 22:00 07/28/19 23:05 07/29/19 00:00 Temperature 36.7 C 36.9 C Pulse Rate 73 72 67 Respiratory Rate 24 H 24 H Blood Pressure 92/49 L 111/60 Pulse Oximetry 98 96 98 07/29/19 02:00 07/29/19 02:01 07/29/19 02:07 Temperature Pulse Rate 69 66 63 Respiratory Rate 24 H 24 H 24 H Blood Pressure 111/57 L Pulse Oximetry 96 07/29/19 02:08 07/29/19 04:00 07/29/19 04:57 Temperature 36.9 C Pulse Rate 66 70 67 Respiratory Rate 24 H Blood Pressure 112/61 Pulse Oxime
[2019-07-29] MEDS: CARBAMAZEPINE 100 MG CHEW PO ×2 (08:12→20:22)
--- NOTE | 2019-07-29 08:39 | WPDINTPN ---
Progress Note: A&P Assessment and Plan (1) Acute respiratory failure: Qualifiers: Respiratory failure complication: unspecified whether with hypoxia or hypercapnia Qualified Code(s): J96.00 - Acute respiratory failure, unspecified whether with hypoxia or hypercapnia Code(s): J96.00 - Acute respiratory failure, unspecified whether with hypoxia or hypercapnia Status: Acute Assessment and Plan: patient presented with pneumonia, Chest x-ray were similar bilateral diffuse infiltrates, likely ARDS physiology. Patient was intubated 07/27/2019 - chest x-ray and ABGs reviewed, Chest x-ray with slight improvement in increased aeration. Continue low tidal volume and high peep strategy - arterial line in place for ABGs - patient on bronchodilators - fentanyl and Versed for sedation, maintain RASS of 0 to -2, daily sedation vacation - patient on Nimbex infusion as she was dyssynchronous with the ventilator (2) Septic shock: Code(s): A41.9 - Sepsis, unspecified organism; R65.21 - Severe sepsis with septic shock Status: Acute Assessment and Plan: patient presented with shortness of breath, cough, vaginal infection. Patient was hypotensive in the ED, received adequate IV fluids, and was started on vasopressors. - Currently of both vasopressin and Levophed. - likely source, lungs and or vaginal infection - appreciate infectious disease evaluation and recommendations, continue cefepime. ( vancomycin and Flagyl have been discontinued) - blood and urine cultures are negative. sputum culture Also negative - influenza A and B are negative - continue maintenance IV fluids (3) Pneumonia: Qualifiers: Pneumonia type: due to unspecified organism Laterality: unspecified laterality Lung location: unspecified part of lung Qualified Code(s): J18.9 - Pneumonia, unspecified organism Code(s): J18.9 - Pneumonia, unspecified organism Status: Acute Assessment and Plan: chest x-ray shows Diffuse lung disease with slight improvement, consistent with pneumonia and/or pulmonary edema - continue antibiotics as above, sputum cultures negative (4) Vaginal infection: Code(s): N76.0 - Acute vaginitis Status: Acute Assessment and Plan: patient was recently seen by OBGYN, was told that she has a bacterial vaginal infection - was started on doxycycline and Flagyl orally, patient did not like the taste of those medications so she had stopped taking them - infectious disease following and discontinued Flagyl (5) Acute renal failure superimposed on stage 4 chronic kidney disease: Onset Date: ~07/2019 Qualifiers: Acute renal failure type: unspecified Qualified Code(s): N17.9 - Acute kidney failure, unspecified; N18.4 - Chronic kidney disease, stage 4 (severe) Code(s): N17.9 - Acute kidney failure, unspecified; N18.4 - Chronic kidney disease, stage 4 (severe) Status: Acute Assessment and Plan: patient with history of stage 4 chronic kidney disease, - acute on chronic kidney disease likely related to septic shock, hypovolemia, ATN - continue to monitor urine output, electrolytes and renal function - appreciate Nephrology evaluation recommendation - urine output is good. her creatinine is lower than her baseline (6) Seizure: Code(s): R56.9 - Unspecified convulsions Status: Acute Assessment and Plan: patient with history of seizures, continue carbamazepine (7) DVT prophylaxis: Code(s): Z29.9 - Encounter for prophylactic measures, unspecified Status: Acute Assessment and Plan: heparin SQ Additional Plan Dscussed patient's care with her daughter, her brother and updated them with patient's condition and plan of care. I also discussed and updated the radiology and lab results. I answered all questions Code status: full code critical care time spent: 33 minutes
[2019-07-29 09:41] LABS: Alveolar/Arterial O2 Gradient 320.6 mmHg; Base Excess ABG -1.9 mEq/l (+/-2.0); Fractional Inspired Oxygen 70 %; HCO3 ABG 22.4 mEq/l (22.0-26.0); Oxygen Content ABG 14.5 %vol (16.0-22.0); Oxygen Saturation ABG 98.8 % (95.0-100.0); Oxyhemoglobin 97.2 % THb (90.0-100.0); PCO2 ABG 36.5 mmHg (35.0-45.0); PO2 ABG 139.3 mmHg (80.0-100.0); PO2 FiO2 Ratio Arterial Blood 1.99 %; Total Hemoglobin 10.4 g/dL (12.0-18.0); pH ABG 7.406 (7.350-7.450)
[2019-07-29 09:44] LABS: Arterial Blood Gas PEEP 14 cmH2O; Arterial Blood Gas Tidal Volume 320 ml; Arterial Blood Gas Vent Mode CMV; Arterial Blood Gas Ventilator rate 22 /MIN; Device VENTILATOR; Site Drawn ARTLINE
--- NOTE | 2019-07-29 11:09 | PCDIET ---
ICU Rounding Note: Patient remains NPO. MD ordered trickle feedings to start today. Last recorded weight is 98.4kg which is increased. I/O's reflect fluid gain. Bowel Motility: No documented bowel movements. Bowel sounds hypoactive. Labs Reviewed: Glu (152), BUN (26), Cr (1.4), Na (134), Alb (2.3), Hgb (7.7), Hct (23.9) Meds Noted: Albuterol, Cefepime, Nimbex, Fentanyl, Versed, Protonix, LR @ 75mL/hr Additional Notes: Urine output 1350mL 07/28/19. No reported skin issues. MD ordered to start Vital 1.2 @ 10mL/hr and increase to 20mL/hr goal, if tolerated. Following daily in ICU rounds. Assessing/reassessing every Friday/Friday.
--- NOTE | 2019-07-29 13:12 | WPDINFPN2 ---
Progress Note: A&P Assessment and Plan (1) Pneumonia: Qualifiers: Pneumonia type: due to unspecified organism Laterality: unspecified laterality Lung location: unspecified part of lung Qualified Code(s): J18.9 - Pneumonia, unspecified organism Code(s): J18.9 - Pneumonia, unspecified organism Status: Acute Assessment and Plan: 1. Lung infiltrates, infectious vs other. Temperature down for now, CXR also better. Viral and bacterial cultures transtracheal are in process, no bacterial michelle so far . I personally reviewed today CXR: improved lung infiltrates, scar on left. 2. MV abnormality, of questionable significance 3. Respiratory failure 4. Cirrhosis 5. Renal failure REC Cefepime #4, continue, no change in dosing. Await above micro. Discussed with brothers at bedside. No PATRICK needed from my standpoint, unless new clinical developments that are more specific for endocarditis. Subjective Date/time seen: 07/29/19 13:12 Interval history: sedated and paralyzed. Norepi 0.05 mcg Exam Narrative: Exam Narrative: afebrile since last visit Const: General: no acute distress Resp: Auscultation: rales, no rhonchi, no wheezes and diminished lung sounds Cardio: Rate: regular rate Rhythm: regular rhythm Heart sounds: no murmurs GI: Other: no masses and no organomegaly. Exam otherwise compromised by paralysis Skin: General skin exam: normal color Lesions: lesion noted Objective Data Vital Signs Vital Signs: Vital Signs - 24 hr 07/28/19 13:56 07/28/19 14:00 07/28/19 14:10 Temperature Pulse Rate 76 84 85 Respiratory Rate 26 H 24 H 24 H Blood Pressure 128/64 Pulse Oximetry 100 99 07/28/19 16:00 07/28/19 17:25 07/28/19 18:00 Temperature 36.9 C Pulse Rate 79 75 72 Respiratory Rate 24 H 24 H Blood Pressure 129/60 124/62 Pulse Oximetry 98 99 100 07/28/19 19:28 07/28/19 19:50 07/28/19 19:53 Temperature 37.1 C Pulse Rate 65 69 70 Respiratory Rate 24 H 24 H Blood Pressure 106/54 L Pulse Oximetry 100 100 99 07/28/19 20:00 07/28/19 20:39 07/28/19 20:50 Temperature Pulse Rate 70 71 72 Respiratory Rate 24 H 24 H Blood Pressure Pulse Oximetry 07/28/19 22:00 07/28/19 23:05 07/29/19 00:00 Temperature 36.7 C 36.9 C Pulse Rate 73 72 67 Respiratory Rate 24 H 24 H Blood Pressure 92/49 L 111/60 Pulse Oximetry 98 96 98 07/29/19 02:00 07/29/19 02:01 07/29/19 02:07 Temperature Pulse Rate 69 66 63 Respiratory Rate 24 H 24 H 24 H Blood Pressure 111/57 L Pulse Oximetry 96 07/29/19 02:08 07/29/19 04:00 07/29/19 04:57 Temperature 36.9 C Pulse Rate 66 70 67 Respiratory Rate 24 H Blood Pressure 112/61 Pulse Oximetry 96 92 95 07/29/19 05:58 07/29/19 08:00 07/29/19 08:20 Temperature 36.9 C 35.9 C L Pulse Rate 66 66 68 Respiratory Rate 24 H 21 H 24 H Blood Pressure 99/53 L 124/82 Pulse Oximetry 96 100 100 07/29/19 08:30 07/29/19 10:00 07/29/19 10:39 Temperature Pulse Rate 68 67 69 Respiratory Rate 24 H 22 H Blood Pressure 101/54 L Pulse Oximetry 100 100 07/29/19 12:00 Temperature 36.1 C L Pulse Rate 62 Respiratory Rate 22 H Blood Pressure 107/56 L Pulse Oximetry 100 Intake/Output Intake/Output: Intake & Output 07/26/19 07/27/19 07/28/19 07/29/19 23:59 23:59 23:59 23:59 Intake Total 3620 4900 4083.7 1500 Output Total 2150 3400 1425 1050 Balance 1470 1500 2658.7 450 Meds/Results Medications: Active Medications Generic Name Dose Route Start Last Admin Trade Name Freq PRN Reason Stop Dose Admin Acetaminophen 650 mg 07/26/19 06:19 07/28/19 05:34 Tylenol Tablet PO 650 mg Q4H PRN Administration Mild Pain (1-3) or Fever Albuterol 5 mg 07/26/19 08:00 07/29/19 08:20 Albuterol Sulf Neb 2.5mg/0.5ml INHALATION 5 mg Q6HRT RYDER Administration Benzocaine 1 lozenge 07/27/19 06:13 Chloraseptic Lozenge PO PRN PRN Sore Throat Calcium Carbonate 200 mg 07/26/19
[2019-07-29] MEDS: SODIUM CHLORIDE 0.9% IV 500 ML IV CONT (15:03)
--- NOTE | 2019-07-29 16:18 | PM.IMPN ---
Progress Note: A&P Assessment and Plan (1) Septic shock: Code(s): A41.9 - Sepsis, unspecified organism; R65.21 - Severe sepsis with septic shock Status: Acute Assessment and Plan: Patient is 59-year-old female presented emergency department with persistent cough abdominal pain nausea vomiting, patient also had vaginal discharge and she was seen by her tank car loader diagnosed with bacterial vaginosis started the patient on Flagyl and doxycycline however patient did not take the medication because as see did not like the taste of the medications, see presented emergency department with a complaint of persistent cough C found to pneumonia and see was in sepsis with hypotension however patient lactic acid is normal as well as white counts are normal, patient was started on Levophed vigorously hydrated seen by litigation partner and being treated with Cefepime, vancomycin and Flagyl, Patient patient went into respiratory distress and had to be intubated most likely worsening pneumona currently patient on vent sedated and paralyzed as patient was quited anxious and agitated, patient was seen by Dr. Ramirez agree with current management and to continue, patient does not need PATRICK. (2) Pulmonary edema: Qualifiers: Chronicity: acute Qualified Code(s): J81.0 - Acute pulmonary edema Code(s): J81.1 - Chronic pulmonary edema Status: Acute Assessment and Plan: Patient with pulmonary edema most likely secondary to acute on chronic diastolic dysfunction however currently patient is hypotensive, and hydrated concern for volume overload seen by litigation partner and further recommendation to follow (3) Normocytic anemia: Code(s): D64.9 - Anemia, unspecified Status: Acute Assessment and Plan: acute vs. chronic. No history of bleeding. Monitor H/H, transfuse prn. (4) Transaminitis: Code(s): R74.0 - Nonspecific elevation of levels of transaminase and lactic acid dehydrogenase [LDH] Status: Acute Assessment and Plan: Likely secondary to hypoperfusion. Monitor LFTs and consider further studies if the patient's transaminitis doesn't resolve. (5) Seizure: Code(s): R56.9 - Unspecified convulsions Status: Acute Assessment and Plan: The pateint has had an acute seizure the day before arrival, We will continue her Carbamazepine. Seizure precautions. Consider Neurology consultation today. (6) Vaginal infection: Code(s): N76.0 - Acute vaginitis Status: Acute Assessment and Plan: It's not entirely clear what kind of vaginal infection the patient is being treated for. 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 Continue antibiotic therapy. Plan is above (7) Acute renal failure superimposed on stage 4 chronic kidney disease: Onset Date: ~07/2019 Qualifiers: Acute renal failure type: unspecified Qualified Code(s): N17.9 - Acute kidney failure, unspecified; N18.4 - Chronic kidney disease, stage 4 (severe) Code(s): N17.9 - Acute kidney failure, unspecified; N18.4 - Chronic kidney disease, stage 4 (severe) Status: Acute Assessment and Plan: Likely secondary to hypoperfusion from septic shock. Monitor renal function. Renally dose medications. Avoid nephrotoxic medications. (8) Hypertension: Qualifiers: Hypertension type: unspecified Qualified Code(s): I10 - Essential (primary) hypertension Code(s): I10 - Essential (primary) hypertension Status: Chronic Assessment and Plan: Hold home anithypertensive medications as the patient has septic shock. resume when appropriate. (9) Elevated cholesterol: Code(s): E78.00 - Pure hypercholesterolemia, unspecified Status: Chronic Assessment and Plan: Continue statin therapy. (10) Acute respiratory failure: Qualifiers: Respiratory failure complication: unspecified whether with h
[2019-07-29] MEDS: NOREPINEPHRINE 8 MG/D5W 250 ML 8 MG/250 ML BAG 0.9 MG IV CONT (19:26)
[2019-07-30] VITALS (31 sets, daily range): BP systolic 98–131; BP diastolic 50–65; PULSE 52–82; RESP 22–24; TEMP 36.4–36.9; O2SAT 97–100
[2019-07-30 00:26] LABS: Glucose Point of Care 148 (65-105)
[2019-07-30] MEDS: ALBUTEROL SULFATE NEB 2.5 MG/0.5 ML INH 5 MG INHALATION ×4 (01:59→19:17)
[2019-07-30] MEDS: IPRATROPIUM BR 0.02% INH SOLN 0.5 MG/2.5 ML VIAL INHALATION ×4 (01:59→19:17)
[2019-07-30 04:29] LABS: Hematocrit 24.2 % (37.0-47.0); Hemoglobin 7.7 g/dL (12.0-15.0); Mean Corpuscular HGB Conc 31.8 g/dl (32-36); Mean Corpuscular Hemoglobin 28.5 pg (26-34); Mean Corpuscular Volume 89.6 fl (80-100); Mean Platelet Volume 9.8 fl (7.4-10.4); Platelet Count Result 139 k/mm3 (150-375); Red Cell Distribution Width 13.9 % (11.5-14.5)
[2019-07-30 04:54] LABS: Alanine Aminotransferase 22 U/L (4-35); Albumin Level 2.2 g/dL (3.5-5.1); Alkaline Phosphatase 67 U/L (38-126); Aspartate Amino Transferase 15 U/L (14-36); Bilirubin,Total 0.2 mg/dL (0.2-1.3); Blood Urea Nitrogen 42 mg/dL (7-17); Calcium 8.4 mg/dL (8.4-10.2); Carbon Dioxide 22 mmol/L (22-30); Chloride 107 mmol/L (98-107); Estimated CRCL calculation 35 ml/min; Estimated Glomerular Filt Rate 33; Glucose 160 mg/dL (65-105); Phosphorus 4.3 mg/dL (2.5-4.5); Potassium 4.3 mmol/L (3.4-5.0); Sodium 136 mmol/L (137-145)
[2019-07-30 05:05] LABS: Alveolar/Arterial O2 Gradient 215.5 mmHg; Base Excess ABG -3.1 mEq/l (+/-2.0); Carboxyhemoglobin 0.2 % THb (0-2.0); Fractional Inspired Oxygen 55 %; Methemoglobin ABG 0.5 %THb (0-1.5); Oxygen Content ABG 12.2 %vol (16.0-22.0); Oxygen Saturation ABG 98.8 % (95.0-100.0); Oxyhemoglobin 97.1 % THb (90.0-100.0); PCO2 ABG 33.4 mmHg (35.0-45.0); PO2 ABG 139.5 mmHg (80.0-100.0); PO2 FiO2 Ratio Arterial Blood 2.54 %; Reduced Hemoglobin 2.2 %THb (0-5.0); Total Hemoglobin 8.7 g/dL (12.0-18.0); pH ABG 7.416 (7.350-7.450)
[2019-07-30 05:06] LABS: Arterial Blood Gas Vent Mode CMV; Arterial Blood Gas Ventilator rate 22 /MIN; Device VENTILATOR; Site Drawn ARTLINE
[2019-07-30 05:07] LABS: Arterial Blood Gas PEEP 14 cmH2O; Arterial Blood Gas Tidal Volume 320 ml
[2019-07-30] MEDS: HYDROCORTISONE SODIUM SUCCINATE 100 MG/2 ML VIAL IV PUSH ×3 (05:08→20:26)
[2019-07-30] MEDS: MIDAZOLAM HCL 50 MG in DEXTROSE 5% 90 ML 12 MG IV CONT (05:15)
[2019-07-30] MEDS: HEPARIN SODIUM 5,000 UNITS/ML VIAL 5000 UNITS SUB-Q ×2 (08:09→20:26)
[2019-07-30] MEDS: CARBAMAZEPINE 100 MG CHEW PO ×2 (08:10→20:26)
[2019-07-30] MEDS: PANTOPRAZOLE SODIUM IV 40 MG VIAL IV PUSH (08:10)
[2019-07-30] MEDS: LACTATED RINGERS 1,000 ML 75 ML IV CONT ×2 (10:17→23:10)
--- NOTE | 2019-07-30 10:51 | WPDINTPN ---
Progress Note: A&P Assessment and Plan (1) Acute respiratory failure: Qualifiers: Respiratory failure complication: unspecified whether with hypoxia or hypercapnia Qualified Code(s): J96.00 - Acute respiratory failure, unspecified whether with hypoxia or hypercapnia Code(s): J96.00 - Acute respiratory failure, unspecified whether with hypoxia or hypercapnia Status: Acute Assessment and Plan: patient presented with pneumonia, Chest x-ray were similar bilateral diffuse infiltrates, likely ARDS physiology. Patient was intubated 07/27/2019 - chest x-ray 07/30/2019 - Decrease in bilateral lung disease which has nearly resolved in the upper lung zones most likely improving pulmonary edema although cannot exclude superimposed pneumonia. - chest x-ray and ABGs reviewed, will wean peep to 12 from 14, - arterial line in place for ABGs - patient on bronchodilators - fentanyl and Versed for sedation, maintain RASS of 0 to -2, daily sedation vacation - will start decreasing Nimbex, and wean off (2) Septic shock: Code(s): A41.9 - Sepsis, unspecified organism; R65.21 - Severe sepsis with septic shock Status: Acute Assessment and Plan: RESOLVED: patient has been off all vasopressors for > 24 hours - patient initially presented with shortness of breath, cough, vaginal infection. Patient was hypotensive in the ED, received adequate IV fluids, and was started on vasopressors. - appreciate infectious disease evaluation and recommendations, continue cefepime. ( vancomycin and Flagyl have been discontinued) - blood and urine cultures are negative. sputum culture Also negative - influenza A and B are negative - continue maintenance IV fluids (3) Pneumonia: Qualifiers: Pneumonia type: due to unspecified organism Laterality: unspecified laterality Lung location: unspecified part of lung Qualified Code(s): J18.9 - Pneumonia, unspecified organism Code(s): J18.9 - Pneumonia, unspecified organism Status: Acute Assessment and Plan: chest x-ray shows much improvement - continue antibiotics as above, sputum cultures negative (4) Vaginal infection: Code(s): N76.0 - Acute vaginitis Status: Acute Assessment and Plan: patient was recently seen by OBGYN, was told that she has a bacterial vaginal infection - was started on doxycycline and Flagyl orally, patient did not like the taste of those medications so she had stopped taking them - infectious disease following and discontinued Flagyl (5) Acute renal failure superimposed on stage 4 chronic kidney disease: Onset Date: ~07/2019 Qualifiers: Acute renal failure type: unspecified Qualified Code(s): N17.9 - Acute kidney failure, unspecified; N18.4 - Chronic kidney disease, stage 4 (severe) Code(s): N17.9 - Acute kidney failure, unspecified; N18.4 - Chronic kidney disease, stage 4 (severe) Status: Acute Assessment and Plan: patient with history of stage 4 chronic kidney disease, - acute on chronic kidney disease likely related to septic shock, hypovolemia, ATN - continue to monitor urine output, electrolytes and renal function - appreciate Nephrology evaluation recommendation - urine output is good. her creatinine is lower than her baseline (6) Seizure: Code(s): R56.9 - Unspecified convulsions Status: Acute Assessment and Plan: patient with history of seizures, continue carbamazepine (7) DVT prophylaxis: Code(s): Z29.9 - Encounter for prophylactic measures, unspecified Status: Acute Assessment and Plan: heparin SQ Additional Plan Dscussed patient's care with patient's son, daughter and her brother updated them with patient's condition and plan of care. I also discussed and updated the radiology and lab results. I answered all questions Code status: full code critical care time spent: 34 m
--- NOTE | 2019-07-30 11:17 | PCDIET ---
Nutrition Follow-Up Complete: Nutrition Diagnosis: Inadequate oral intake related to mechanical ventilation/oral intubation as evidenced by NPO diet. Nutrition Goal: Patient to meet estimated nutritional needs. Goal in progress. Patient receiving Vital 1.2 @ 20mL/hr. MD plans to increase tube feeding rate later today. Recommend goal of 65mL/hr x 22 hours/day. Last recorded weight is 106.1 kg which is increased. I/O positive. Bowel Motility: No documented BM. Discussed with MD. Labs Reviewed: Glu (160), BUN (42), Cr (1.6), Na (136), Alb (2.2) Meds Noted: Albuterol, Maxipime, Nimbex, Fentanyl, Solu Cortef, Versed, Protonix, LR @ 75mL/hr Additional Notes: No documented skin breakdown. Will continue to monitor with same goal. Nutrition Monitoring and Evaluation: Follow up every Friday/Friday. Follow daily in ICU rounds.
--- NOTE | 2019-07-30 12:39 | PC.NURSE ---
Nimbex turned off at this time. Dr. Molina notified. Will leave current sedation settings at this time and observe patient for changes.
--- NOTE | 2019-07-30 13:42 | PM.PNNEP ---
Progress Note: A&P Assessment and Plan (1) Acute renal failure superimposed on stage 4 chronic kidney disease: Onset Date: ~07/2019 Qualifiers: Acute renal failure type: unspecified Qualified Code(s): N17.9 - Acute kidney failure, unspecified; N18.4 - Chronic kidney disease, stage 4 (severe) Code(s): N17.9 - Acute kidney failure, unspecified; N18.4 - Chronic kidney disease, stage 4 (severe) Status: Acute Assessment and Plan: The patient has chronic kidney disease. She has been seeing Dr. Solano in the office for a long time because of this. The patient has acute kidney injury superimposed on this. Most likely ATN due to septic shock. This is recovering. Her creatinine is lower than baseline. Most likely due to the sedatives. (2) Acute respiratory failure: Qualifiers: Respiratory failure complication: unspecified whether with hypoxia or hypercapnia Qualified Code(s): J96.00 - Acute respiratory failure, unspecified whether with hypoxia or hypercapnia Code(s): J96.00 - Acute respiratory failure, unspecified whether with hypoxia or hypercapnia Status: Acute Assessment and Plan: The patient has respiratory insufficiency. She is now on the ventilator and sedated with paralytics Off pressors. And soon paralytics will be discontinued. (3) Cirrhosis of liver: Code(s): K74.60 - Unspecified cirrhosis of liver Status: Acute (4) Septic shock: Code(s): A41.9 - Sepsis, unspecified organism; R65.21 - Severe sepsis with septic shock Status: Acute Assessment and Plan: She has low blood pressure. She is better, off pressors entirely. Subjective Date/time seen: 07/30/19 13:42 Interval history: Patient is sedated. She has been given paralytics. Blood pressure is better. She is now off all the pressors. Family is in the room. Review of Systems Constitutional: Constitutional: Reports fever(s) and Reports poor appetite Cardiovascular: Cardiovascular: Denies syncope Respiratory: Respiratory: Reports excessive phlegm production Neurologic: Denies syncope Exam Narrative: Exam Narrative: Well developed well-nourished in no acute distress Lungs course and symmetric Heart regular without rub or gallop Abdomen bowel sounds positive soft nontender Extremities no edema Skin no rash or subcu nodules Objective Data Vital Signs Vital Signs: Vital Signs - 24 hr 07/29/19 14:00 07/29/19 16:00 07/29/19 16:03 Temperature 36.4 C Pulse Rate 70 66 61 Respiratory Rate 22 H 22 H Blood Pressure 95/47 L 131/66 Pulse Oximetry 100 100 07/29/19 17:00 07/29/19 18:00 07/29/19 19:56 Temperature Pulse Rate 65 59 L 62 Respiratory Rate 22 H 22 H Blood Pressure 122/60 Pulse Oximetry 100 100 100 07/29/19 20:00 07/29/19 20:04 07/29/19 20:15 Temperature 36.9 C Pulse Rate 60 60 62 Respiratory Rate 22 H 22 H 22 H Blood Pressure 112/54 L Pulse Oximetry 100 100 07/29/19 21:54 07/29/19 23:20 07/30/19 00:00 Temperature 36.9 C Pulse Rate 57 L 51 L 53 L Respiratory Rate 22 H 22 H Blood Pressure 121/57 L 118/57 L Pulse Oximetry 100 100 100 07/30/19 01:59 07/30/19 02:00 07/30/19 02:13 Temperature 36.9 C Pulse Rate 59 L 61 63 Respiratory Rate 22 H 22 H 22 H Blood Pressure 118/55 L Pulse Oximetry 100 100 07/30/19 04:00 07/30/19 05:20 07/30/19 06:00 Temperature 36.5 C Pulse Rate 59 L 59 L 57 L Respiratory Rate 22 H 22 H Blood Pressure 123/60 122/60 Pulse Oximetry 100 100 100 07/30/19 08:00 07/30/19 08:05 07/30/19 09:06 Temperature 36.5 C Pulse Rate 52 L 52 L 52 L Respiratory Rate 22 H 22 H Blood Pressure 119/58 L Pulse Oximetry 100 100 07/30/19 09:41 07/30/19 10:00 07/30/19 10:30 Temperature Pulse Rate 82 61 57 L Respiratory Rate 23 H 22 H Blood Pressure 117/57 L Pulse Oximetry 100 100 07/30/19 12:26 07/30/19 12:29 Temperature 36.6 C Pulse Rate 57 L
--- NOTE | 2019-07-30 15:08 | WPDINFPN2 ---
Progress Note: A&P Assessment and Plan (1) Pneumonia: Qualifiers: Pneumonia type: due to unspecified organism Laterality: unspecified laterality Lung location: unspecified part of lung Qualified Code(s): J18.9 - Pneumonia, unspecified organism Code(s): J18.9 - Pneumonia, unspecified organism Status: Acute Assessment and Plan: 1. Lung infiltrates, infectious vs other. Temperature down for now, CXR also better. Viral culture transtracheal in process, no bacterial michelle. I personally reviewed today CXR: improved lung infiltrates, no cavitation. Radiologist interpretation also noted. 2. MV abnormality, of questionable significance 3. Respiratory failure 4. Cirrhosis 5. Renal failure REC Cefepime #5 / 7 days, continue, no change in dosing. If no new developments, stop cefepime in 2 days more. BCs ng 4 1/2 days Subjective Date/time seen: 07/30/19 15:08 Interval history: sedation on. Paralysis off. No pressors. Exam Narrative: Exam Narrative: afebrile Const: General: no acute distress Eyes: General: appearance normal, both eyes and all related structures Resp: Effort & Inspection: normal respiratory effort Auscultation: clear to auscultation bilaterally, no rales, no rhonchi and no wheezes Cardio: Rate: regular rate Rhythm: regular rhythm GI: Inspection: non-distended GI Palp: Yes Soft to palpation, No Tenderness to palpation present (GI) and No Guarding due to palpation present (GI) Auscultation: normal bowel sounds Skin: General skin exam: normal color Extrem: General: no edema Objective Data Vital Signs Vital Signs: Vital Signs - 24 hr 07/29/19 16:00 07/29/19 16:03 07/29/19 17:00 Temperature 36.4 C Pulse Rate 66 61 65 Respiratory Rate 22 H Blood Pressure 131/66 Pulse Oximetry 100 100 07/29/19 18:00 07/29/19 19:56 07/29/19 20:00 Temperature 36.9 C Pulse Rate 59 L 62 60 Respiratory Rate 22 H 22 H 22 H Blood Pressure 122/60 112/54 L Pulse Oximetry 100 100 100 07/29/19 20:04 07/29/19 20:15 07/29/19 21:54 Temperature Pulse Rate 60 62 57 L Respiratory Rate 22 H 22 H 22 H Blood Pressure 121/57 L Pulse Oximetry 100 100 07/29/19 23:20 07/30/19 00:00 07/30/19 01:59 Temperature 36.9 C Pulse Rate 51 L 53 L 59 L Respiratory Rate 22 H 22 H Blood Pressure 118/57 L Pulse Oximetry 100 100 100 07/30/19 02:00 07/30/19 02:13 07/30/19 04:00 Temperature 36.9 C 36.5 C Pulse Rate 61 63 59 L Respiratory Rate 22 H 22 H 22 H Blood Pressure 118/55 L 123/60 Pulse Oximetry 100 100 07/30/19 05:20 07/30/19 06:00 07/30/19 08:00 Temperature 36.5 C Pulse Rate 59 L 57 L 52 L Respiratory Rate 22 H 22 H Blood Pressure 122/60 119/58 L Pulse Oximetry 100 100 100 07/30/19 08:05 07/30/19 09:06 07/30/19 09:41 Temperature Pulse Rate 52 L 52 L 82 Respiratory Rate 22 H 23 H Blood Pressure Pulse Oximetry 100 07/30/19 10:00 07/30/19 10:30 07/30/19 12:26 Temperature 36.6 C Pulse Rate 61 57 L 57 L Respiratory Rate 22 H 22 H Blood Pressure 117/57 L 124/65 Pulse Oximetry 100 100 100 07/30/19 12:29 07/30/19 13:44 07/30/19 13:45 Temperature Pulse Rate 55 L 61 61 Respiratory Rate 22 H Blood Pressure 122/63 Pulse Oximetry 100 07/30/19 13:50 07/30/19 14:12 07/30/19 14:30 Temperature Pulse Rate 60 65 65 Respiratory Rate 22 H 22 H Blood Pressure Pulse Oximetry 100 Intake/Output Intake/Output: Intake & Output 07/27/19 07/28/19 07/29/19 07/30/19 23:59 23:59 23:59 23:59 Intake Total 4900 4083.7 3735.7 1991.1 Output Total 3400 1425 1550 360 Balance 1500 2658.7 2185.7 1631.1 Meds/Results Medications: Active Medications Generic Name Dose Route Start Last Admin Trade Name Freq PRN Reason Stop Dose Admin Acetaminophen 650 mg 07/26/19 06:19 07/28/19 05:34 Tylenol Tablet PO 650 mg Q4H PRN Administration Mild Pain (1-3) or Fever Albuterol 5 mg 07/26/19 08:00 07/30/19 13:45
--- NOTE | 2019-07-30 16:28 | PM.IMPN ---
Progress Note: A&P Assessment and Plan (1) Septic shock: Code(s): A41.9 - Sepsis, unspecified organism; R65.21 - Severe sepsis with septic shock Status: Acute Assessment and Plan: 07/30/19 16:28Patient is 59-year-old female presented emergency department with persistent cough abdominal pain nausea vomiting, patient also had vaginal discharge and she was seen by her area field person diagnosed with bacterial vaginosis started the patient on Flagyl and doxycycline however patient did not take the medication because as see did not like the taste of the medications, see presented emergency department with a complaint of persistent cough C found to pneumonia and see was in sepsis with hypotension however patient lactic acid is normal as well as white counts are normal, patient was started on Levophed vigorously hydrated seen by vehicle fuel systems converter and being treated with Cefepime, vancomycin and Flagyl, Patient patient went into respiratory distress and had to be intubated most likely worsening pneumona currently patient on vent sedated and paralyzed as patient was quited anxious and agitated, patient was seen by Dr. Ramirez on 07/29 agree with current management and to continue, patient does not need PATRICK. today D/W with patient vehicle fuel systems converter patient CXR as well kindeny function is improving however patient is requiring ventilation and sedations and requiring paralytic. (2) Pulmonary edema: Qualifiers: Chronicity: acute Qualified Code(s): J81.0 - Acute pulmonary edema Code(s): J81.1 - Chronic pulmonary edema Status: Acute Assessment and Plan: Patient with pulmonary edema most likely secondary to acute on chronic diastolic dysfunction however currently patient is hypotensive, and hydrated concern for volume overload seen by vehicle fuel systems converter and further recommendation to follow (3) Normocytic anemia: Code(s): D64.9 - Anemia, unspecified Status: Acute Assessment and Plan: acute vs. chronic. No history of bleeding. Monitor H/H, transfuse prn. (4) Transaminitis: Code(s): R74.0 - Nonspecific elevation of levels of transaminase and lactic acid dehydrogenase [LDH] Status: Acute Assessment and Plan: Likely secondary to hypoperfusion. Monitor LFTs and consider further studies if the patient's transaminitis doesn't resolve. (5) Seizure: Code(s): R56.9 - Unspecified convulsions Status: Acute Assessment and Plan: The pateint has had an acute seizure the day before arrival, We will continue her Carbamazepine. Seizure precautions. Consider Neurology consultation today. (6) Vaginal infection: Code(s): N76.0 - Acute vaginitis Status: Acute Assessment and Plan: It's not entirely clear what kind of vaginal infection the patient is being treated for. We will need to obtain outside records in the morning from her [employer] office. Continue antibiotic therapy. Plan is above (7) Acute renal failure superimposed on stage 4 chronic kidney disease: Onset Date: ~07/2019 Qualifiers: Acute renal failure type: unspecified Qualified Code(s): N17.9 - Acute kidney failure, unspecified; N18.4 - Chronic kidney disease, stage 4 (severe) Code(s): N17.9 - Acute kidney failure, unspecified; N18.4 - Chronic kidney disease, stage 4 (severe) Status: Acute Assessment and Plan: Likely secondary to hypoperfusion from septic shock. Monitor renal function. Renally dose medications. Avoid nephrotoxic medications. (8) Hypertension: Qualifiers: Hypertension type: unspecified Qualified Code(s): I10 - Essential (primary) hypertension Code(s): I10 - Essential (primary) hypertension Status: Chronic Assessment and Plan: Hold home anithypertensive medications as the patient has septic shock. resume when appropriate. (9) Elevated cholesterol: Code(s): E78.00 - Pure hypercholesterolemia, unspecified Status
[2019-07-30] MEDS: MIDAZOLAM HCL 50 MG in DEXTROSE 5% 90 ML 8 MG IV CONT (16:45)
[2019-07-31] VITALS (28 sets, daily range): BP systolic 101–121; BP diastolic 48–62; PULSE 54–92; RESP 15–26; TEMP 36.4–36.8; O2SAT 92–100
[2019-07-31] MEDS: ALBUTEROL SULFATE NEB 2.5 MG/0.5 ML INH 5 MG INHALATION ×4 (01:21→20:21)
[2019-07-31] MEDS: IPRATROPIUM BR 0.02% INH SOLN 0.5 MG/2.5 ML VIAL INHALATION ×4 (01:21→20:21)
[2019-07-31] MEDS: MIDAZOLAM HCL 50 MG in DEXTROSE 5% 90 ML 10 MG IV CONT (04:21)
[2019-07-31 05:02] LABS: Alveolar/Arterial O2 Gradient 258.3 mmHg; Base Excess ABG -4.9 mEq/l (+/-2.0); Carboxyhemoglobin 0.1 % THb (0-2.0); Fractional Inspired Oxygen 55 %; HCO3 ABG 19.2 mEq/l (22.0-26.0); Methemoglobin ABG 0.2 %THb (0-1.5); Oxygen Content ABG 18.2 %vol (16.0-22.0); Oxygen Saturation ABG 97.4 % (95.0-100.0); Oxyhemoglobin 96.9 % THb (90.0-100.0); PCO2 ABG 32.8 mmHg (35.0-45.0); PO2 ABG 97.4 mmHg (80.0-100.0); PO2 FiO2 Ratio Arterial Blood 1.77 %; Reduced Hemoglobin 2.8 %THb (0-5.0); Total Hemoglobin 13.3 g/dL (12.0-18.0); pH ABG 7.385 (7.350-7.450)
[2019-07-31 05:03] LABS: Arterial Blood Gas Vent Mode CMV; Arterial Blood Gas Ventilator rate 22 /MIN; Device VENTILATOR; Site Drawn ARTLINE
[2019-07-31 05:04] LABS: Arterial Blood Gas PEEP 12 cmH2O; Arterial Blood Gas Tidal Volume 320 ml
[2019-07-31 05:38] LABS: Hematocrit 25.9 % (37.0-47.0); Hemoglobin 8.2 g/dL (12.0-15.0); Mean Corpuscular HGB Conc 31.7 g/dl (32-36); Mean Corpuscular Hemoglobin 28.6 pg (26-34); Mean Corpuscular Volume 90.2 fl (80-100); Mean Platelet Volume 9.5 fl (7.4-10.4); Platelet Count Result 138 k/mm3 (150-375); Red Blood Count 2.87 M/mm3 (4.2-5.4); Red Cell Distribution Width 14.1 % (11.5-14.5); White Blood Count 7.4 K/mm3 (4.5-10.0)
[2019-07-31 06:25] LABS: Alanine Aminotransferase 31 U/L (4-35); Albumin Level 2.3 g/dL (3.5-5.1); Alkaline Phosphatase 89 U/L (38-126); Aspartate Amino Transferase 42 U/L (14-36); Bilirubin,Total 0.3 mg/dL (0.2-1.3); Blood Urea Nitrogen 63 mg/dL (7-17); Calcium 8.5 mg/dL (8.4-10.2); Carbon Dioxide 21 mmol/L (22-30); Chloride 104 mmol/L (98-107); Estimated CRCL calculation 35 ml/min; Estimated Glomerular Filt Rate 31; Glucose 163 mg/dL (65-105); Magnesium 2.2 mg/dL (1.6-2.3); Phosphorus 4.9 mg/dL (2.5-4.5); Potassium 4.6 mmol/L (3.4-5.0); Sodium 133 mmol/L (137-145)
[2019-07-31] MEDS: HEPARIN SODIUM 5,000 UNITS/ML VIAL 5000 UNITS SUB-Q ×2 (09:12→20:32)
[2019-07-31] MEDS: CARBAMAZEPINE 100 MG CHEW PO ×2 (09:12→20:31)
[2019-07-31] MEDS: HYDROCORTISONE SODIUM SUCCINATE 100 MG/2 ML VIAL 50 MG IV PUSH ×2 (10:48→16:09)
[2019-07-31] MEDS: FAMOTIDINE 20 MG/2 ML VIAL IV PUSH ×2 (10:48→20:32)
--- NOTE | 2019-07-31 12:27 | WPDINTPN ---
Progress Note: A&P Assessment and Plan (1) Acute respiratory failure: Qualifiers: Respiratory failure complication: unspecified whether with hypoxia or hypercapnia Qualified Code(s): J96.00 - Acute respiratory failure, unspecified whether with hypoxia or hypercapnia Code(s): J96.00 - Acute respiratory failure, unspecified whether with hypoxia or hypercapnia Status: Acute Assessment and Plan: patient presented with pneumonia, Chest x-ray were similar bilateral diffuse infiltrates, likely ARDS physiology. Patient was intubated 07/27/2019. - chest x-ray Reviewed by myself. Looks more airspace disease bilaterally compared to yesterday. - Will start weaning the PEEP and aim for a peep of 8 today. Will continue to wean FiO2 as well and aim for 40% of FiO2 today. - arterial line in place for ABGs - patient on bronchodilators - fentanyl and Versed for sedation, maintain RASS of 0 to -2, daily sedation vacation - Nimbex have been weaned off. - if remains stable and FiO2 and PEEP or within acceptable range then will give her SBT trial tomorrow and try to extubate her in the next day or 2 if she does well with SBT trial. - Will start her on gentle diuresis with Lasix. (2) Septic shock: Code(s): A41.9 - Sepsis, unspecified organism; R65.21 - Severe sepsis with septic shock Status: Acute Assessment and Plan: RESOLVED: patient has been off all vasopressors for > 48 hours - patient initially presented with shortness of breath, cough, vaginal infection. Patient was hypotensive in the ED, received adequate IV fluids, and was started on vasopressors. - appreciate infectious disease evaluation and recommendations, continue cefepime. ( vancomycin and Flagyl have been discontinued) - blood and urine cultures are negative. sputum culture Also negative - influenza A and B are negative - Will stop IV fluids. - Will start weaning the steroids which was likely started for septic shock. (3) Pneumonia: Qualifiers: Pneumonia type: due to unspecified organism Laterality: unspecified laterality Lung location: unspecified part of lung Qualified Code(s): J18.9 - Pneumonia, unspecified organism Code(s): J18.9 - Pneumonia, unspecified organism Status: Acute Assessment and Plan: chest x-ray shows much improvement. Worsening today is likely as a result of fluid. - continue antibiotics as above, sputum cultures negative (4) Vaginal infection: Code(s): N76.0 - Acute vaginitis Status: Acute Assessment and Plan: patient was recently seen by OBGYN, was told that she has a bacterial vaginal infection - was started on doxycycline and Flagyl orally, patient did not like the taste of those medications so she had stopped taking them - infectious disease following and discontinued Flagyl (5) Acute renal failure superimposed on stage 4 chronic kidney disease: Onset Date: ~07/2019 Qualifiers: Acute renal failure type: unspecified Qualified Code(s): N17.9 - Acute kidney failure, unspecified; N18.4 - Chronic kidney disease, stage 4 (severe) Code(s): N17.9 - Acute kidney failure, unspecified; N18.4 - Chronic kidney disease, stage 4 (severe) Status: Acute Assessment and Plan: patient with history of stage 4 chronic kidney disease. - acute on chronic kidney disease likely related to septic shock, hypovolemia, ATN - continue to monitor urine output, electrolytes and renal function - appreciate Nephrology evaluation recommendation - urine output is Low today. her creatinine is lower than her baseline. - will give her Lasix today. Will aim for a net fluid negative balance of 1.5 L for today. (6) Seizure: Code(s): R56.9 - Unspecified convulsions Status: Acute Assessment and Plan: patient with history of seizures, continue carbamazepine (7) DVT prophylaxis: Code(s):
[2019-07-31] MEDS: FUROSEMIDE INJ 40 MG/4 ML VIAL IV PUSH ×2 (12:37→20:41)
[2019-07-31] MEDS: MIDAZOLAM HCL 50 MG in DEXTROSE 5% 90 ML IV CONT (17:03)
--- NOTE | 2019-07-31 17:34 | PM.IMPN ---
Progress Note: A&P Assessment and Plan (1) Septic shock: Code(s): A41.9 - Sepsis, unspecified organism; R65.21 - Severe sepsis with septic shock Status: Acute Assessment and Plan: 07/31/19 17:34 Patient is 59-year-old female presented emergency department with persistent cough abdominal pain nausea vomiting, patient also had vaginal discharge and she was seen by her enamel buffer diagnosed with bacterial vaginosis started the patient on Flagyl and doxycycline however patient did not take the medication because as see did not like the taste of the medications, see presented emergency department with a complaint of persistent cough C found to pneumonia and see was in sepsis with hypotension however patient lactic acid is normal as well as white counts are normal, patient was started on Levophed vigorously hydrated seen by breast splitter and being treated with Cefepime, vancomycin and Flagyl, Patient patient went into respiratory distress and had to be intubated most likely worsening pneumona currently patient on vent sedated and paralyzed as patient was quited anxious and agitated, patient was seen by Dr. Ramirez on 07/29 agree with current management and to continue, patient does not need PATRICK. today D/W with patient breast splitter patient CXR as well kindeny function is improving however patient is requiring ventilation and sedations and requiring paralytic. todat patient is off paralytic and minimal sedation will monitor over night and receive a trial to wean off vent. (2) Pulmonary edema: Qualifiers: Chronicity: acute Qualified Code(s): J81.0 - Acute pulmonary edema Code(s): J81.1 - Chronic pulmonary edema Status: Acute Assessment and Plan: Patient with pulmonary edema most likely secondary to acute on chronic diastolic dysfunction however currently patient is hypotensive, and hydrated concern for volume overload seen by breast splitter and further recommendation to follow (3) Normocytic anemia: Code(s): D64.9 - Anemia, unspecified Status: Acute Assessment and Plan: acute vs. chronic. No history of bleeding. Monitor H/H, transfuse prn. (4) Transaminitis: Code(s): R74.0 - Nonspecific elevation of levels of transaminase and lactic acid dehydrogenase [LDH] Status: Acute Assessment and Plan: Likely secondary to hypoperfusion. Monitor LFTs and consider further studies if the patient's transaminitis doesn't resolve. (5) Seizure: Code(s): R56.9 - Unspecified convulsions Status: Acute Assessment and Plan: The pateint has had an acute seizure the day before arrival, We will continue her Carbamazepine. Seizure precautions. Consider Neurology consultation today. (6) Vaginal infection: Code(s): N76.0 - Acute vaginitis Status: Acute Assessment and Plan: It's not entirely clear what kind of vaginal infection the patient is being treated for. We will need to obtain outside records in the morning from her [place] office. Continue antibiotic therapy. Plan is above (7) Acute renal failure superimposed on stage 4 chronic kidney disease: Onset Date: ~07/2019 Qualifiers: Acute renal failure type: unspecified Qualified Code(s): N17.9 - Acute kidney failure, unspecified; N18.4 - Chronic kidney disease, stage 4 (severe) Code(s): N17.9 - Acute kidney failure, unspecified; N18.4 - Chronic kidney disease, stage 4 (severe) Status: Acute Assessment and Plan: Likely secondary to hypoperfusion from septic shock. Monitor renal function. Renally dose medications. Avoid nephrotoxic medications. (8) Hypertension: Qualifiers: Hypertension type: unspecified Qualified Code(s): I10 - Essential (primary) hypertension Code(s): I10 - Essential (primary) hypertension Status: Chronic Assessment and Plan: Hold home anithypertensive medications as the patient has septic shock. resume when amber
[2019-08-01] VITALS (32 sets, daily range): BP systolic 98–138; BP diastolic 48–69; PULSE 66–109; RESP 18–28; TEMP 36.5–37.1; O2SAT 92–99
[2019-08-01] MEDS: HYDROCORTISONE SODIUM SUCCINATE 100 MG/2 ML VIAL 50 MG IV PUSH ×3 (01:00→20:28)
[2019-08-01] MEDS: IPRATROPIUM BR 0.02% INH SOLN 0.5 MG/2.5 ML VIAL INHALATION ×4 (01:49→20:03)
[2019-08-01] MEDS: ALBUTEROL SULFATE NEB 2.5 MG/0.5 ML INH 5 MG INHALATION ×4 (01:49→20:03)
[2019-08-01 05:31] LABS: Hematocrit 26.3 % (37.0-47.0); Hemoglobin 8.5 g/dL (12.0-15.0); Mean Corpuscular HGB Conc 32.3 g/dl (32-36); Mean Corpuscular Hemoglobin 29.2 pg (26-34); Mean Corpuscular Volume 90.4 fl (80-100); Mean Platelet Volume 9.1 fl (7.4-10.4); Platelet Count Result 112 k/mm3 (150-375); Red Blood Count 2.91 M/mm3 (4.2-5.4); Red Cell Distribution Width 13.9 % (11.5-14.5); White Blood Count 8.6 K/mm3 (4.5-10.0)
[2019-08-01 05:50] LABS: Alveolar/Arterial O2 Gradient 138.2 mmHg; Base Excess ABG -3.5 mEq/l (+/-2.0); Carboxyhemoglobin 0.2 % THb (0-2.0); Device VENTILATOR; Fractional Inspired Oxygen 40 %; HCO3 ABG 20.4 mEq/l (22.0-26.0); Methemoglobin ABG 0.6 %THb (0-1.5); Oxygen Content ABG 12.5 %vol (16.0-22.0); Oxygen Saturation ABG 98.1 % (95.0-100.0); Oxyhemoglobin 96.3 % THb (90.0-100.0); PCO2 ABG 32.4 mmHg (35.0-45.0); PO2 ABG 109.7 mmHg (80.0-100.0); PO2 FiO2 Ratio Arterial Blood 2.74 %; Reduced Hemoglobin 2.9 %THb (0-5.0); Site Drawn ARTLINE; Total Hemoglobin 9.1 g/dL (12.0-18.0); pH ABG 7.418 (7.350-7.450)
[2019-08-01 05:51] LABS: Arterial Blood Gas PEEP 8 cmH2O; Arterial Blood Gas Tidal Volume 320 ml; Arterial Blood Gas Vent Mode CMV; Arterial Blood Gas Ventilator rate 22 /MIN
[2019-08-01 06:19] LABS: Alanine Aminotransferase 64 U/L (4-35); Albumin Level 2.5 g/dL (3.5-5.1); Alkaline Phosphatase 120 U/L (38-126); Aspartate Amino Transferase 80 U/L (14-36); Bilirubin,Total 0.4 mg/dL (0.2-1.3); Blood Urea Nitrogen 78 mg/dL (7-17); Calcium 8.2 mg/dL (8.4-10.2); Carbon Dioxide 23 mmol/L (22-30); Chloride 101 mmol/L (98-107); Estimated CRCL calculation 30 ml/min; Estimated Glomerular Filt Rate 27; Glucose 126 mg/dL (65-105); Magnesium 2.1 mg/dL (1.6-2.3); Phosphorus 4.8 mg/dL (2.5-4.5); Potassium 3.8 mmol/L (3.4-5.0); Sodium 135 mmol/L (137-145)
[2019-08-01] MEDS: HEPARIN SODIUM 5,000 UNITS/ML VIAL 5000 UNITS SUB-Q ×2 (08:24→20:28)
[2019-08-01] MEDS: FAMOTIDINE 20 MG/2 ML VIAL IV PUSH ×2 (08:25→20:27)
[2019-08-01] MEDS: CARBAMAZEPINE 100 MG CHEW PO ×2 (08:25→20:27)
--- NOTE | 2019-08-01 08:59 | WPDINTPN ---
Progress Note: A&P Assessment and Plan (1) Acute respiratory failure: Qualifiers: Respiratory failure complication: unspecified whether with hypoxia or hypercapnia Qualified Code(s): J96.00 - Acute respiratory failure, unspecified whether with hypoxia or hypercapnia Code(s): J96.00 - Acute respiratory failure, unspecified whether with hypoxia or hypercapnia Status: Acute Assessment and Plan: patient presented with pneumonia, Chest x-ray were similar bilateral diffuse infiltrates, likely ARDS physiology. Patient was intubated 07/27/2019. - chest x-ray Reviewed by myself. Chest x-ray seems a little better compared to yesterday. - arterial line in place for ABGs - Continue on bronchodilators - fentanyl and Versed for sedation, maintain RASS of 0 to -2, daily sedation vacation - Nimbex have been weaned off. - Currently sedation is being weaned off. She will be placed on SBT trial when she is awake and following command. She will get extubated if she does well on SBT trial. - Will hold off diuresis today and his renal functions are bit worsened compared to yesterday. (2) Septic shock: Code(s): A41.9 - Sepsis, unspecified organism; R65.21 - Severe sepsis with septic shock Status: Acute Assessment and Plan: RESOLVED: patient has been off all vasopressors for > 72 hours - patient initially presented with shortness of breath, cough, vaginal infection. Patient was hypotensive in the ED, received adequate IV fluids, and was started on vasopressors. - appreciate infectious disease evaluation and recommendations, continue cefepime. ( vancomycin and Flagyl have been discontinued) - blood and urine cultures are negative. sputum culture also negative - influenza A and B are negative. - continue to weaning the steroids which was likely started for septic shock. (3) Pneumonia: Qualifiers: Laterality: unspecified laterality Lung location: unspecified part of lung Pneumonia type: due to unspecified organism Qualified Code(s): J18.9 - Pneumonia, unspecified organism Code(s): J18.9 - Pneumonia, unspecified organism Status: Acute Assessment and Plan: - chest x-ray shows much improvement. - continue antibiotics as above, sputum cultures negative (4) Vaginal infection: Code(s): N76.0 - Acute vaginitis Status: Acute Assessment and Plan: patient was recently seen by OBGYN, was told that she has a bacterial vaginal infection - was started on doxycycline and Flagyl orally, patient did not like the taste of those medications so she had stopped taking them - infectious disease following and discontinued Flagyl (5) Acute renal failure superimposed on stage 4 chronic kidney disease: Onset Date: ~07/2019 Qualifiers: Acute renal failure type: unspecified Qualified Code(s): N17.9 - Acute kidney failure, unspecified; N18.4 - Chronic kidney disease, stage 4 (severe) Code(s): N17.9 - Acute kidney failure, unspecified; N18.4 - Chronic kidney disease, stage 4 (severe) Status: Acute Assessment and Plan: patient with history of stage 4 chronic kidney disease. - acute on chronic kidney disease likely related to septic shock, hypovolemia, ATN - continue to monitor urine output, electrolytes and renal function - renal functions are worse today compared to yesterday. She was given Lasix yesterday for making her euvolemic for suspected SBT trial/extubation today. Will hold further Lasix for now. (6) Seizure: Code(s): R56.9 - Unspecified convulsions Status: Acute Assessment and Plan: patient with history of seizures, continue carbamazepine (7) DVT prophylaxis: Code(s): Z29.9 - Encounter for prophylactic measures, unspecified Status: Acute Assessment and Plan: heparin SQ Pepcid for GI prophylaxis Additional Plan Hold tube feed for expected extu
[2019-08-01 11:01] LABS: Base Excess ABG -2.7 mEq/l (+/-2.0); Carboxyhemoglobin 0.2 % THb (0-2.0); Fractional Inspired Oxygen 40 %; HCO3 ABG 22.1 mEq/l (22.0-26.0); Methemoglobin ABG 0.5 %THb (0-1.5); Oxygen Content ABG 12.1 %vol (16.0-22.0); Oxygen Saturation ABG 94.5 % (95.0-100.0); Oxyhemoglobin 91.2 % THb (90.0-100.0); PCO2 ABG 38.3 mmHg (35.0-45.0); PO2 ABG 73.2 mmHg (80.0-100.0); PO2 FiO2 Ratio Arterial Blood 1.83 %; Reduced Hemoglobin 8.1 %THb (0-5.0); Total Hemoglobin 9.4 g/dL (12.0-18.0); pH ABG 7.379 (7.350-7.450)
[2019-08-01 11:02] LABS: Arterial Blood Gas PEEP 5 cmH2O; Arterial Blood Gas Pressure Support 5 cmH2O; Arterial Blood Gas Vent Mode SPONTANEOUS; Device VENTILATOR; Site Drawn ARTLINE
--- NOTE | 2019-08-01 15:48 | PM.IMPN ---
Progress Note: A&P Assessment and Plan (1) Septic shock: Code(s): A41.9 - Sepsis, unspecified organism; R65.21 - Severe sepsis with septic shock Status: Acute Assessment and Plan: 08/01/19 15:48 Patient is 59-year-old female presented emergency department with persistent cough abdominal pain nausea vomiting, patient also had vaginal discharge and she was seen by her brusher warp diagnosed with bacterial vaginosis started the patient on Flagyl and doxycycline however patient did not take the medication because as see did not like the taste of the medications, see presented emergency department with a complaint of persistent cough C found to pneumonia and see was in sepsis with hypotension however patient lactic acid is normal as well as white counts are normal, patient was started on Levophed vigorously hydrated seen by diesel scoop operator and being treated with Cefepime, vancomycin and Flagyl, Patient patient went into respiratory distress and had to be intubated most likely worsening pneumona currently patient on vent sedated and paralyzed as patient was quited anxious and agitated, patient was seen by Dr. Ramirez on 07/29 agree with current management and to continue, patient does not need PATRICK. today D/W with patient diesel scoop operator patient CXR as well kindeny function is improving however patient is requiring ventilation and sedations and requiring paralytic. d/w with intnesivist today again patient is off paralytic and sedation and on AST mode in hope to extubate the patient (2) Pulmonary edema: Qualifiers: Chronicity: acute Qualified Code(s): J81.0 - Acute pulmonary edema Code(s): J81.1 - Chronic pulmonary edema Status: Acute Assessment and Plan: Patient with pulmonary edema most likely secondary to acute on chronic diastolic dysfunction however currently patient is hypotensive, and hydrated concern for volume overload seen by diesel scoop operator and further recommendation to follow (3) Normocytic anemia: Code(s): D64.9 - Anemia, unspecified Status: Acute Assessment and Plan: acute vs. chronic. No history of bleeding. Monitor H/H, transfuse prn. (4) Transaminitis: Code(s): R74.0 - Nonspecific elevation of levels of transaminase and lactic acid dehydrogenase [LDH] Status: Acute Assessment and Plan: Likely secondary to hypoperfusion. Monitor LFTs and consider further studies if the patient's transaminitis doesn't resolve. (5) Seizure: Code(s): R56.9 - Unspecified convulsions Status: Acute Assessment and Plan: The pateint has had an acute seizure the day before arrival, We will continue her Carbamazepine. Seizure precautions. Consider Neurology consultation today. (6) Vaginal infection: Code(s): N76.0 - Acute vaginitis Status: Acute Assessment and Plan: It's not entirely clear what kind of vaginal infection the patient is being treated for. We will need to obtain outside records in the morning from her [employer] office. Continue antibiotic therapy. Plan is above (7) Acute renal failure superimposed on stage 4 chronic kidney disease: Onset Date: ~07/2019 Qualifiers: Acute renal failure type: unspecified Qualified Code(s): N17.9 - Acute kidney failure, unspecified; N18.4 - Chronic kidney disease, stage 4 (severe) Code(s): N17.9 - Acute kidney failure, unspecified; N18.4 - Chronic kidney disease, stage 4 (severe) Status: Acute Assessment and Plan: Likely secondary to hypoperfusion from septic shock. Monitor renal function. Renally dose medications. Avoid nephrotoxic medications. (8) Hypertension: Qualifiers: Hypertension type: unspecified Qualified Code(s): I10 - Essential (primary) hypertension Code(s): I10 - Essential (primary) hypertension Status: Chronic Assessment and Plan: Hold home anithypertensive medications as the patient has septic shock. resume wh
[2019-08-01] MEDS: FUROSEMIDE INJ 40 MG/4 ML VIAL IV PUSH (16:02)
[2019-08-02] VITALS (25 sets, daily range): BP systolic 110–150; BP diastolic 50–75; PULSE 61–101; RESP 18–27; TEMP 36.6–37.2; O2SAT 92–97
[2019-08-02] MEDS: IPRATROPIUM BR 0.02% INH SOLN 0.5 MG/2.5 ML VIAL INHALATION ×4 (01:43→20:40)
[2019-08-02] MEDS: ALBUTEROL SULFATE NEB 2.5 MG/0.5 ML INH 5 MG INHALATION ×4 (01:43→20:40)
[2019-08-02 04:45] LABS: Hematocrit 24.9 % (37.0-47.0); Mean Corpuscular HGB Conc 32.1 g/dl (32-36); Mean Corpuscular Hemoglobin 28.4 pg (26-34); Mean Corpuscular Volume 88.3 fl (80-100); Mean Platelet Volume 9.8 fl (7.4-10.4); Platelet Count Result 78 k/mm3 (150-375); Red Blood Count 2.82 M/mm3 (4.2-5.4); Red Cell Distribution Width 13.8 % (11.5-14.5)
[2019-08-02 05:02] LABS: Blood Urea Nitrogen 80 mg/dL (7-17); Calcium 8.2 mg/dL (8.4-10.2); Carbon Dioxide 28 mmol/L (22-30); Chloride 105 mmol/L (98-107); Estimated CRCL calculation 35 ml/min; Estimated Glomerular Filt Rate 33; Glucose 138 mg/dL (65-105); Phosphorus 3.3 mg/dL (2.5-4.5); Potassium 3.2 mmol/L (3.4-5.0); Sodium 139 mmol/L (137-145)
[2019-08-02 05:38] LABS: Alveolar/Arterial O2 Gradient 147.1 mmHg; Base Excess ABG 2.1 mEq/l (+/-2.0); Carboxyhemoglobin 0.3 % THb (0-2.0); Fractional Inspired Oxygen 35 %; HCO3 ABG 25.7 mEq/l (22.0-26.0); Methemoglobin ABG 0.3 %THb (0-1.5); Oxygen Content ABG 14.8 %vol (16.0-22.0); Oxygen Saturation ABG 92.6 % (95.0-100.0); Oxyhemoglobin 90.1 % THb (90.0-100.0); PCO2 ABG 36.4 mmHg (35.0-45.0); PO2 ABG 60.1 mmHg (80.0-100.0); PO2 FiO2 Ratio Arterial Blood 1.72 %; Reduced Hemoglobin 9.3 %THb (0-5.0); Total Hemoglobin 11.7 g/dL (12.0-18.0); pH ABG 7.467 (7.350-7.450)
[2019-08-02 05:39] LABS: Arterial Blood Gas PEEP 5 cmH2O; Arterial Blood Gas Tidal Volume 320 ml; Arterial Blood Gas Vent Mode CMV; Arterial Blood Gas Ventilator rate 22 /MIN; Device VENTILATOR; Site Drawn ARTLINE
[2019-08-02] MEDS: CARBAMAZEPINE 100 MG CHEW PO ×2 (08:37→20:35)
--- NOTE | 2019-08-02 08:37 | WPDINTPN ---
Progress Note: A&P Assessment and Plan (1) Acute respiratory failure: Qualifiers: Respiratory failure complication: unspecified whether with hypoxia or hypercapnia Qualified Code(s): J96.00 - Acute respiratory failure, unspecified whether with hypoxia or hypercapnia Code(s): J96.00 - Acute respiratory failure, unspecified whether with hypoxia or hypercapnia Status: Acute Assessment and Plan: Patient presented with pneumonia, Chest x-ray were similar bilateral diffuse infiltrates, likely ARDS physiology. Patient was intubated 07/27/2019. - CXR and ABG reviewed - Decrease RR to 18 - PSV SBT today. if successful will try to extubate pt today - Lasix for volume overload - Continue on bronchodilators - Precedex (2) Septic shock: Code(s): A41.9 - Sepsis, unspecified organism; R65.21 - Severe sepsis with septic shock Status: Acute Assessment and Plan: RESOLVED: patient has been off all vasopressors for > 72 hours - patient initially presented with shortness of breath, cough, vaginal infection. Patient was hypotensive in the ED, received adequate IV fluids, and was started on vasopressors. - appreciate infectious disease evaluation and recommendations, continue cefepime. ( vancomycin and Flagyl have been discontinued) - blood and urine cultures are negative. sputum culture also negative - influenza A and B are negative. - Discontinue the steroids which was likely started for septic shock. (3) Pneumonia: Qualifiers: Pneumonia type: due to unspecified organism Laterality: unspecified laterality Lung location: unspecified part of lung Qualified Code(s): J18.9 - Pneumonia, unspecified organism Code(s): J18.9 - Pneumonia, unspecified organism Status: Acute Assessment and Plan: - chest x-ray shows much improvement. - continue antibiotics as above, sputum cultures negative (4) Vaginal infection: Code(s): N76.0 - Acute vaginitis Status: Acute Assessment and Plan: patient was recently seen by OBGYN, was told that she has a bacterial vaginal infection - was started on doxycycline and Flagyl orally, patient did not like the taste of those medications so she had stopped taking them - infectious disease following and discontinued Flagyl (5) Acute renal failure superimposed on stage 4 chronic kidney disease: Onset Date: ~07/2019 Qualifiers: Acute renal failure type: unspecified Qualified Code(s): N17.9 - Acute kidney failure, unspecified; N18.4 - Chronic kidney disease, stage 4 (severe) Code(s): N17.9 - Acute kidney failure, unspecified; N18.4 - Chronic kidney disease, stage 4 (severe) Status: Acute Assessment and Plan: Patient with history of stage 4 chronic kidney disease. - acute on chronic kidney disease likely related to septic shock, hypovolemia, ATN - continue to monitor urine output, electrolytes and renal function - Plumbing Inspector slightly improved - Continue lasix for hypervolemia - Replace low K (6) Seizure: Code(s): R56.9 - Unspecified convulsions Status: Acute Assessment and Plan: patient with history of seizures, continue carbamazepine (7) DVT prophylaxis: Code(s): Z29.9 - Encounter for prophylactic measures, unspecified Status: Acute Assessment and Plan: heparin SQ Pepcid for GI prophylaxis Additional Plan Resume TF if unable to extubate Will discuss with family when available SUP and DVTP Her right IJ line for the last 6 days. Arterial line 6 days as well. Code status: full code Total critical care time spent: 33 minutes Due to a high probability of clinically significant, life threatening deterioration, the patient required my highest level of preparedness to intervene emergently and I personally spent this critical care time directly and personally managing the patient. This critical care time included obtaining a history;
[2019-08-02] MEDS: HEPARIN SODIUM 5,000 UNITS/ML VIAL 5000 UNITS SUB-Q ×2 (08:38→20:34)
[2019-08-02] MEDS: FUROSEMIDE INJ 40 MG/4 ML VIAL IV PUSH ×2 (08:38→18:02)
[2019-08-02] MEDS: FAMOTIDINE 20 MG/2 ML VIAL IV PUSH ×2 (08:38→20:34)
[2019-08-02] MEDS: POTASSIUM CHLORIDE 20 MEQ PACKET (FOR LIQUID) 40 MEQ PO (10:45)
--- NOTE | 2019-08-02 10:54 | PCDIET ---
ICU Rounding Note: Tube feedings on hold for SBT today. MD ordered to increase tube feedings if unable to extubate. Recommend goal rate of 55mL/hr Vital 1.2 x 22 hours/day for 1452kcal, 90g protein and 981mL free water. Last recorded weight is 99.2kg which is decreased. I/O negative. Bowel Motility: No documented bowel movement. MD added Miralax prn this date. Labs Reviewed: Glu (138), BUN (80), Cr (1.6), K (3.2), Alb (2.5), Cristiano Ca (9.4) Meds Noted: Albuterol, Maxipime, Lasix, Pepcid, Precedex, KCl Additional Notes: No reported skin breakdown. Following daily in ICU rounds. Assessing/reassessing every Friday/Friday.
--- NOTE | 2019-08-02 12:07 | WPDINFPN2 ---
Progress Note: A&P Assessment and Plan (1) Pneumonia: Qualifiers: Pneumonia type: due to unspecified organism Laterality: unspecified laterality Lung location: unspecified part of lung Qualified Code(s): J18.9 - Pneumonia, unspecified organism Code(s): J18.9 - Pneumonia, unspecified organism Status: Acute Assessment and Plan: 1. Lung infiltrates, infectious vs other. Has defervesced. I personally reviewed her CXR, stable lung infiltrates, R more marked than L, both bases. NO enw findings. Viral culture transtracheal in process, no bacterial michelle. 2. MV abnormality, of questionable significance 3. Respiratory failure 4. Cirrhosis 5. Renal failure REC Cefepime #8, stop and follow. Updated brothers. Subjective Date/time seen: 08/02/19 12:07 Interval history: no pressors. Sedated. ventilated Exam Narrative: Exam Narrative: afebrile Const: General: no acute distress Eyes: General: appearance normal, both eyes and all related structures Resp: Effort & Inspection: normal respiratory effort Auscultation: clear to auscultation bilaterally Other: decreased on right, vesicular throughout Cardio: Rate: regular rate Rhythm: regular rhythm Heart sounds: no gallops and no murmurs GI: Inspection: non-distended GI Palp: Yes Soft to palpation and No Tenderness to palpation present (GI) Skin: General skin exam: normal color and no rashes or lesions noted Objective Data Vital Signs Vital Signs: Vital Signs - 24 hr 08/01/19 13:57 08/01/19 14:00 08/01/19 14:09 Temperature Pulse Rate 107 H 109 H 88 Respiratory Rate 28 H Blood Pressure 138/68 Pulse Oximetry 94 93 08/01/19 14:10 08/01/19 14:20 08/01/19 16:00 Temperature 37.1 C Pulse Rate 89 92 100 Respiratory Rate 22 H 22 H 22 H Blood Pressure 135/69 Pulse Oximetry 95 08/01/19 17:30 08/01/19 18:07 08/01/19 20:00 Temperature 36.5 C Pulse Rate 98 93 91 Respiratory Rate 19 22 H Blood Pressure 134/66 115/53 L Pulse Oximetry 94 97 93 08/01/19 20:04 08/01/19 20:10 08/01/19 20:12 Temperature Pulse Rate 87 83 89 Respiratory Rate 22 H 22 H Blood Pressure Pulse Oximetry 99 08/01/19 22:00 08/01/19 23:20 08/02/19 00:00 Temperature 36.9 C Pulse Rate 73 82 85 Respiratory Rate 22 H 22 H Blood Pressure 130/63 141/71 H Pulse Oximetry 92 95 93 08/02/19 01:44 08/02/19 01:48 08/02/19 01:51 Temperature Pulse Rate 81 81 90 Respiratory Rate 22 H 22 H Blood Pressure Pulse Oximetry 94 08/02/19 02:00 08/02/19 04:00 08/02/19 04:57 Temperature 37.1 C Pulse Rate 87 82 68 Respiratory Rate 23 H 22 H Blood Pressure 135/69 130/63 Pulse Oximetry 93 96 92 08/02/19 06:00 08/02/19 07:54 08/02/19 08:00 Temperature 36.6 C Pulse Rate 68 76 79 Respiratory Rate 22 H 19 21 H Blood Pressure 150/75 H 122/57 L Pulse Oximetry 97 94 94 08/02/19 10:00 Temperature Pulse Rate 83 Respiratory Rate 21 H Blood Pressure 128/60 Pulse Oximetry 97 Intake/Output Intake/Output: Intake & Output 07/30/19 07/31/19 08/01/19 08/02/19 23:59 23:59 23:59 23:59 Intake Total 3553.1 2137 628 269 Output Total 685 1700 3275 1625 Balance 2868.1 621 -4375 -2587 Meds/Results Medications: Active Medications Generic Name Dose Route Start Last Admin Trade Name Freq PRN Reason Stop Dose Admin Acetaminophen 650 mg 07/26/19 06:19 07/28/19 05:34 Tylenol Tablet PO 650 mg Q4H PRN Administration Mild Pain (1-3) or Fever Albuterol 5 mg 07/26/19 08:00 08/02/19 07:54 Albuterol Sulf Neb 2.5mg/0.5ml INHALATION 5 mg Q6HRT RYDER Administration Benzocaine 1 lozenge 07/27/19 06:13 Chloraseptic Lozenge PO PRN PRN Sore Throat Calcium Carbonate 200 mg 07/26/19 09:00 07/29/19 08:18 Tums PO Not Given BID RYDER Carbamazepine 100 mg 07/26/19 21:00 01/27/20 08:37 Tegretol Chew PO 100 mg Q12HR RYDER Administration Famotidine 20 mg 07/31/19 09:00 0
[2019-08-02] MEDS: LORAZEPAM INJ 2 MG/ML VIAL 1 MG IV PUSH (13:47)
[2019-08-02 15:25] LABS: Blood Urea Nitrogen 72 mg/dL (7-17); Calcium 8.3 mg/dL (8.4-10.2); Carbon Dioxide 30 mmol/L (22-30); Chloride 105 mmol/L (98-107); Estimated CRCL calculation 33 ml/min; Estimated Glomerular Filt Rate 31; Glucose 118 mg/dL (65-105); Magnesium 1.9 mg/dL (1.6-2.3); Potassium 3.8 mmol/L (3.4-5.0); Sodium 141 mmol/L (137-145)
[2019-08-02] MEDS: ALBUMIN HUMAN 25% 25 GM/100 ML 100 ML IVPB (16:06)
--- NOTE | 2019-08-02 16:06 | PM.IMPN ---
Progress Note: A&P Assessment and Plan (1) Septic shock: Code(s): A41.9 - Sepsis, unspecified organism; R65.21 - Severe sepsis with septic shock Status: Acute Assessment and Plan: 08/02/19 16:06 Patient is 59-year-old female presented emergency department with persistent cough abdominal pain nausea vomiting, patient also had vaginal discharge and she was seen by her army officer diagnosed with bacterial vaginosis started the patient on Flagyl and doxycycline however patient did not take the medication because as see did not like the taste of the medications, see presented emergency department with a complaint of persistent cough C found to pneumonia and see was in sepsis with hypotension however patient lactic acid is normal as well as white counts are normal, patient was started on Levophed vigorously hydrated seen by novelty balloon assembler and packer patient is off Levophed more than 72hours, and had bee treated with Cefepime, vancomycin and Flagyl, seen by Dr. Ramirez chest x-ray does not show significan infiltrates patient is off abx. patient went into respiratory distress and had to be intubated 07/27, patient is still on vent trial of weaning of the vent failed as patient was techpenic, will monitor one more on vent and will try tomorrow to extubate tomorrow, (2) Pulmonary edema: Qualifiers: Chronicity: acute Qualified Code(s): J81.0 - Acute pulmonary edema Code(s): J81.1 - Chronic pulmonary edema Status: Acute Assessment and Plan: Patient with pulmonary edema most likely secondary to acute on chronic diastolic dysfunction however currently patient is hypotensive, and hydrated concern for volume overload seen by novelty balloon assembler and packer and further recommendation to follow (3) Normocytic anemia: Code(s): D64.9 - Anemia, unspecified Status: Acute Assessment and Plan: acute vs. chronic. No history of bleeding. Monitor H/H, transfuse prn. (4) Transaminitis: Code(s): R74.0 - Nonspecific elevation of levels of transaminase and lactic acid dehydrogenase [LDH] Status: Acute Assessment and Plan: Likely secondary to hypoperfusion. Monitor LFTs and consider further studies if the patient's transaminitis doesn't resolve. (5) Seizure: Code(s): R56.9 - Unspecified convulsions Status: Acute Assessment and Plan: The pateint has had an acute seizure the day before arrival, We will continue her Carbamazepine. Seizure precautions. Consider Neurology consultation today. (6) Vaginal infection: Code(s): N76.0 - Acute vaginitis Status: Acute Assessment and Plan: It's not entirely clear what kind of vaginal infection the patient is being treated for. We will need to obtain outside records in the morning from her Commercial Lines Insurance Agent office. Continue antibiotic therapy. Plan is above (7) Acute renal failure superimposed on stage 4 chronic kidney disease: Onset Date: ~07/2019 Qualifiers: Acute renal failure type: unspecified Qualified Code(s): N17.9 - Acute kidney failure, unspecified; N18.4 - Chronic kidney disease, stage 4 (severe) Code(s): N17.9 - Acute kidney failure, unspecified; N18.4 - Chronic kidney disease, stage 4 (severe) Status: Acute Assessment and Plan: Likely secondary to hypoperfusion from septic shock. Monitor renal function. Renally dose medications. Avoid nephrotoxic medications. (8) Hypertension: Qualifiers: Hypertension type: unspecified Qualified Code(s): I10 - Essential (primary) hypertension Code(s): I10 - Essential (primary) hypertension Status: Chronic Assessment and Plan: Hold home anithypertensive medications as the patient has septic shock. resume when appropriate. (9) Elevated cholesterol: Code(s): E78.00 - Pure hypercholesterolemia, unspecified Status: Chronic Assessment and Plan: Continue statin therapy. (10) Acute respiratory failure:
[2019-08-03] VITALS (24 sets, daily range): BP systolic 107–150; BP diastolic 46–83; PULSE 60–108; RESP 18–95; TEMP 36.6–37.8; O2SAT 95–100
[2019-08-03] MEDS: ALBUTEROL SULFATE NEB 2.5 MG/0.5 ML INH 5 MG INHALATION ×4 (02:47→19:42)
[2019-08-03] MEDS: IPRATROPIUM BR 0.02% INH SOLN 0.5 MG/2.5 ML VIAL INHALATION ×4 (02:47→19:42)
[2019-08-03 04:50] LABS: Alveolar/Arterial O2 Gradient 123.9 mmHg; Base Excess ABG 6.3 mEq/l (+/-2.0); Carboxyhemoglobin 0.2 % THb (0-2.0); Fractional Inspired Oxygen 35 %; HCO3 ABG 29.8 mEq/l (22.0-26.0); Methemoglobin ABG 0.5 %THb (0-1.5); Oxygen Content ABG 12.7 %vol (16.0-22.0); Oxygen Saturation ABG 96.8 % (95.0-100.0); Oxyhemoglobin 94.1 % THb (90.0-100.0); PCO2 ABG 38.4 mmHg (35.0-45.0); PO2 FiO2 Ratio Arterial Blood 2.31 %; Reduced Hemoglobin 5.2 %THb (0-5.0); Total Hemoglobin 9.5 g/dL (12.0-18.0); pH ABG 7.508 (7.350-7.450)
[2019-08-03 04:51] LABS: Device VENTILATOR; Site Drawn ARTLINE
[2019-08-03 04:53] LABS: Arterial Blood Gas PEEP 5 cmH2O; Arterial Blood Gas Tidal Volume 320 ml; Arterial Blood Gas Vent Mode CMV; Arterial Blood Gas Ventilator rate 22 /MIN
[2019-08-03 04:56] LABS: Hematocrit 24.7 % (37.0-47.0); Hemoglobin 7.8 g/dL (12.0-15.0); Immature Platelet Fraction Pct 2.1 % (0.9-11.2); Mean Corpuscular HGB Conc 31.6 g/dl (32-36); Mean Corpuscular Hemoglobin 28.4 pg (26-34); Mean Corpuscular Volume 89.8 fl (80-100); Mean Platelet Volume 9.7 fl (7.4-10.4); Platelet Count Result 72 k/mm3 (150-375); Red Blood Count 2.75 M/mm3 (4.2-5.4); Red Cell Distribution Width 13.9 % (11.5-14.5); White Blood Count 6.5 K/mm3 (4.5-10.0)
[2019-08-03 05:43] LABS: Blood Urea Nitrogen 64 mg/dL (7-17); Calcium 8.4 mg/dL (8.4-10.2); Carbon Dioxide 30 mmol/L (22-30); Chloride 104 mmol/L (98-107); Estimated CRCL calculation 35 ml/min; Estimated Glomerular Filt Rate 33; Glucose 168 mg/dL (65-105); Magnesium 1.9 mg/dL (1.6-2.3); Phosphorus 3.6 mg/dL (2.5-4.5); Potassium 3.5 mmol/L (3.4-5.0); Sodium 141 mmol/L (137-145)
[2019-08-03] MEDS: FAMOTIDINE 20 MG/2 ML VIAL IV PUSH ×2 (09:40→20:18)
[2019-08-03] MEDS: CARBAMAZEPINE 100 MG CHEW PO ×2 (09:41→20:17)
[2019-08-03] MEDS: HEPARIN SODIUM 5,000 UNITS/ML VIAL 5000 UNITS SUB-Q ×2 (10:27→20:17)
[2019-08-03] MEDS: WATER, STERILE FOR INJECTION 10 ML VIAL XX (10:32)
[2019-08-03 11:18] LABS: Alveolar/Arterial O2 Gradient 105.4 mmHg; Base Excess ABG 5.7 mEq/l (+/-2.0); Device VENTILATOR; Fractional Inspired Oxygen 35 %; HCO3 ABG 29.2 mEq/l (22.0-26.0); Oxygen Content ABG 12.2 %vol (16.0-22.0); Oxyhemoglobin 95.9 % THb (90.0-100.0); PCO2 ABG 38.1 mmHg (35.0-45.0); PO2 ABG 99.9 mmHg (80.0-100.0); PO2 FiO2 Ratio Arterial Blood 2.85 %; Site Drawn ARTLINE; Total Hemoglobin 8.9 g/dL (12.0-18.0); pH ABG 7.502 (7.350-7.450)
[2019-08-03 11:19] LABS: Arterial Blood Gas PEEP 5 cmH2O; Arterial Blood Gas Pressure Support 8 cmH2O; Arterial Blood Gas Vent Mode SPONTANEOUS
--- NOTE | 2019-08-03 11:38 | WPDINTPN ---
Progress Note: A&P Assessment and Plan (1) Acute respiratory failure: Qualifiers: Respiratory failure complication: unspecified whether with hypoxia or hypercapnia Qualified Code(s): J96.00 - Acute respiratory failure, unspecified whether with hypoxia or hypercapnia Code(s): J96.00 - Acute respiratory failure, unspecified whether with hypoxia or hypercapnia Status: Acute Assessment and Plan: Patient with respiratory failrue . Chest x-ray with PVC. Patient was intubated 07/27/2019. - CXR and ABG reviewed - PSV SBT today. if successful will try to extubate pt today - Lasix for volume overload - Continue on bronchodilators - Precedex has been turned off (2) Septic shock: Code(s): A41.9 - Sepsis, unspecified organism; R65.21 - Severe sepsis with septic shock Status: Acute Assessment and Plan: RESOLVED: patient has been off all vasopressors for > 72 hours - patient initially presented with shortness of breath, cough, vaginal infection. Patient was hypotensive in the ED, received adequate IV fluids, and was started on vasopressors. - appreciate infectious disease evaluation and recommendations, continue cefepime. ( vancomycin and Flagyl have been discontinued) - blood and urine cultures are negative. sputum culture also negative - influenza A and B are negative. - Discontinue the steroids which was likely started for septic shock. (3) Pneumonia: Qualifiers: Pneumonia type: due to unspecified organism Laterality: unspecified laterality Lung location: unspecified part of lung Qualified Code(s): J18.9 - Pneumonia, unspecified organism Code(s): J18.9 - Pneumonia, unspecified organism Status: Acute Assessment and Plan: - chest x-ray shows much improvement. - continue antibiotics as above, sputum cultures negative (4) Vaginal infection: Code(s): N76.0 - Acute vaginitis Status: Acute Assessment and Plan: patient was recently seen by OBGYN, was told that she has a bacterial vaginal infection - was started on doxycycline and Flagyl orally, patient did not like the taste of those medications so she had stopped taking them - infectious disease following and all abx d/c (5) Acute renal failure superimposed on stage 4 chronic kidney disease: Onset Date: ~07/2019 Qualifiers: Acute renal failure type: unspecified Qualified Code(s): N17.9 - Acute kidney failure, unspecified; N18.4 - Chronic kidney disease, stage 4 (severe) Code(s): N17.9 - Acute kidney failure, unspecified; N18.4 - Chronic kidney disease, stage 4 (severe) Status: Acute Assessment and Plan: Patient with history of stage 4 chronic kidney disease. - acute on chronic kidney disease likely related to septic shock, hypovolemia, ATN - continue to monitor urine output, electrolytes and renal function - Provider Relations Manager slightly improved - Continue lasix for hypervolemia - Replace low K (6) Seizure: Code(s): R56.9 - Unspecified convulsions Status: Acute Assessment and Plan: patient with history of seizures, continue carbamazepine (7) DVT prophylaxis: Code(s): Z29.9 - Encounter for prophylactic measures, unspecified Status: Acute Assessment and Plan: heparin SQ Pepcid for GI prophylaxis Additional Plan Resume TF if unable to extubate daughter updated at bedside Her right RIJ last 6 days. Arterial line 6 days as well. will d/c art line today Code status: full code Total critical care time spent: 33 minutes Due to a high probability of clinically significant, life threatening deterioration, the patient required my highest level of preparedness to intervene emergently and I personally spent this critical care time directly and personally managing the patient. This critical care time included obtaining a history; examining the patient; pulse oximetry; ordering and review of studies; jeff
[2019-08-03 12:35] LABS: Glucose Point of Care 112 (65-105)
--- NOTE | 2019-08-03 13:21 | PCDIET ---
Nutrition Follow-Up Complete: Nutrition Diagnosis: Inadequate oral intake related to mechanical ventilation/oral intubation as evidenced by NPO diet. Nutrition Goal: Patient to meet estimated nutritional needs. Goal previously met. Patient tolerating Vital 1.2 @ 55mL/hr goal rate with no significant residuals. Tube feedings held today for SBT. Last recorded weight is 98.4 kg which is decreased. I/O negative. Bowel Motility: No documented bowel movements noted. Labs Reviewed: Glu (168), BUN (64), Cr (1.6), Hgb (7.8), Hct (24.7) Meds Noted: Precedex, Atrovent, Pepcid, Heparin, Miralax Additional Notes: No documented pressure sores. Recommend resuming enteral feeding if unable to extubate. Would also suggest additional medication(s) to promote bowel movement, if medically appropriate. Will continue to monitor with same goal. Nutrition Monitoring and Evaluation: Follow up every Friday/Friday. Follow daily in ICU rounds.
--- NOTE | 2019-08-03 13:46 | WPDINFPN2 ---
Progress Note: A&P Assessment and Plan (1) Pneumonia: Qualifiers: Pneumonia type: due to unspecified organism Laterality: unspecified laterality Lung location: unspecified part of lung Qualified Code(s): J18.9 - Pneumonia, unspecified organism Code(s): J18.9 - Pneumonia, unspecified organism Status: Acute Assessment and Plan: 1. Lung infiltrates, infectious vs other. CXR without change. 2. MV abnormality, of questionable significance 3. Respiratory failure, extubated 4. Cirrhosis 5. Renal failure REC Off antibiotic (Cefepime 8 days) and stable. Subjective Date/time seen: 08/03/19 13:46 Interval history: extubated, soft voice Exam Resp: Auscultation: clear to auscultation bilaterally and diminished lung sounds Other: tachypneic Objective Data Vital Signs Vital Signs: Vital Signs - 24 hr 08/02/19 14:00 08/02/19 14:19 08/02/19 14:30 Temperature Pulse Rate 72 81 83 Respiratory Rate 18 27 H 25 H Blood Pressure 110/50 L Pulse Oximetry 97 08/02/19 14:37 08/02/19 16:00 08/02/19 17:55 Temperature 36.9 C Pulse Rate 81 69 71 Respiratory Rate 18 Blood Pressure 117/58 L Pulse Oximetry 97 97 97 08/02/19 18:00 08/02/19 20:00 08/02/19 20:40 Temperature 36.9 C Pulse Rate 70 72 70 Respiratory Rate 18 18 19 Blood Pressure 116/71 113/54 L Pulse Oximetry 97 97 96 08/02/19 20:48 08/02/19 22:00 08/02/19 23:12 Temperature Pulse Rate 69 66 66 Respiratory Rate 18 18 Blood Pressure 114/54 L Pulse Oximetry 97 97 08/03/19 00:00 08/03/19 02:00 08/03/19 02:47 Temperature 36.9 C Pulse Rate 65 60 73 Respiratory Rate 18 18 18 Blood Pressure 121/52 L 121/59 L Pulse Oximetry 97 97 97 08/03/19 02:58 08/03/19 04:00 08/03/19 04:30 Temperature 36.6 C Pulse Rate 76 73 69 Respiratory Rate 18 18 Blood Pressure 107/46 L Pulse Oximetry 95 97 08/03/19 06:00 08/03/19 08:00 08/03/19 09:05 Temperature 36.7 C Pulse Rate 71 73 78 Respiratory Rate 20 21 H Blood Pressure 131/63 126/58 L Pulse Oximetry 99 98 97 08/03/19 09:09 08/03/19 10:00 08/03/19 12:00 Temperature 37.5 C Pulse Rate 78 84 99 Respiratory Rate 24 H 22 H 32 H Blood Pressure 128/58 L 143/66 H Pulse Oximetry 98 97 Intake/Output Intake/Output: Intake & Output 07/31/19 08/01/19 08/02/19 08/03/19 23:59 23:59 23:59 23:59 Intake Total 2137 628 899 779 Output Total 1700 4553 1848 4566 Balance 985 -3062 -5423 -7510 Meds/Results Medications: Active Medications Generic Name Dose Route Start Last Admin Trade Name Freq PRN Reason Stop Dose Admin Acetaminophen 650 mg 07/26/19 06:19 07/28/19 05:34 Tylenol Tablet PO 650 mg Q4H PRN Administration Mild Pain (1-3) or Fever Albuterol 5 mg 07/26/19 08:00 08/03/19 08:35 Albuterol Sulf Neb 2.5mg/0.5ml INHALATION 5 mg Q6HRT RYDER Administration Benzocaine 1 lozenge 07/27/19 06:13 Chloraseptic Lozenge PO PRN PRN Sore Throat Calcium Carbonate 200 mg 07/26/19 09:00 07/29/19 08:18 Tums PO Not Given BID RYDER Carbamazepine 100 mg 07/26/19 21:00 08/03/19 09:41 Tegretol Chew PO 100 mg Q12HR RYDER Administration Famotidine 20 mg 07/31/19 09:00 08/03/19 09:40 Pepcid Iv IV PUSH 20 mg Q12HR RYDER Administration Guaifenesin 600 mg 07/26/19 21:00 07/29/19 08:18 Mucinex 12 Hr Tab PO Not Given Q12HR RYDER Heparin Sodium (Porcine) 5,000 units 07/26/19 09:00 08/03/19 10:27 Heparin Sodium SUB-Q 5,000 units Q12HR RYDER Administration Dexmedetomidine HCl 400 mcg in 100 mls @ 17.588 mls/hr 08/01/19 11:20 08/03/19 07:42 Precedex 400 Mcg/D5w 100 Ml IV CONT 0.7 mcg/kg/hr .Q5H42M RYDER 17.6 mls/hr Administration Protocol 0.7 MCG/KG/HR Ipratropium Amity 0.5 mg 07/26/19 08:00 08/03/19 08:35 Atrovent Neb INHALATION 0.5 mg Q6HRT RYDER Administration Methylprednisolone Sodium Succinate 40 mg 08/03/19 14:00 Solu-Medrol
[2019-08-03] MEDS: FUROSEMIDE INJ 100 MG/10 ML VIAL 60 MG IV PUSH (14:39)
[2019-08-03] MEDS: methylPREDNISolone SOD SUCC 40 MG VIAL IV PUSH (14:39)
--- NOTE | 2019-08-03 16:03 | PM.IMPN ---
Progress Note: A&P Assessment and Plan (1) Septic shock: Code(s): A41.9 - Sepsis, unspecified organism; R65.21 - Severe sepsis with septic shock Status: Acute Assessment and Plan: 08/02/19 16:06 Patient is 59-year-old female presented emergency department with persistent cough abdominal pain nausea vomiting, patient also had vaginal discharge and she was seen by her retail support manager diagnosed with bacterial vaginosis started the patient on Flagyl and doxycycline however patient did not take the medication because as see did not like the taste of the medications, see presented emergency department with a complaint of persistent cough, intubated, extubated today after almost 7 days on vent (2) Pulmonary edema: Qualifiers: Chronicity: acute Qualified Code(s): J81.0 - Acute pulmonary edema Code(s): J81.1 - Chronic pulmonary edema Status: Acute Assessment and Plan: Patient with pulmonary edema most likely secondary to acute on chronic diastolic dysfunction pt is on iv lasix (3) Normocytic anemia: Code(s): D64.9 - Anemia, unspecified Status: Acute Assessment and Plan: acute vs. chronic. No history of bleeding. Monitor H/H, transfuse prn. (4) Transaminitis: Code(s): R74.0 - Nonspecific elevation of levels of transaminase and lactic acid dehydrogenase [LDH] Status: Acute Assessment and Plan: Likely secondary to hypoperfusion. Monitor LFTs (5) Seizure: Code(s): R56.9 - Unspecified convulsions Status: Acute Assessment and Plan: The pateint has had an acute seizure the day before arrival, We will continue her Carbamazepine. neurology on board (6) Vaginal infection: Code(s): N76.0 - Acute vaginitis Status: Resolved (7) Acute renal failure superimposed on stage 4 chronic kidney disease: Onset Date: ~07/2019 Qualifiers: Acute renal failure type: unspecified Qualified Code(s): N17.9 - Acute kidney failure, unspecified; N18.4 - Chronic kidney disease, stage 4 (severe) Code(s): N17.9 - Acute kidney failure, unspecified; N18.4 - Chronic kidney disease, stage 4 (severe) Status: Acute Assessment and Plan: Likely secondary to hypoperfusion from septic shock. Monitor renal function. (8) Hypertension: Qualifiers: Hypertension type: unspecified Qualified Code(s): I10 - Essential (primary) hypertension Code(s): I10 - Essential (primary) hypertension Status: Chronic (9) Elevated cholesterol: Code(s): E78.00 - Pure hypercholesterolemia, unspecified Status: Chronic Assessment and Plan: Continue statin therapy. (10) Acute respiratory failure: Qualifiers: Respiratory failure complication: unspecified whether with hypoxia or hypercapnia Qualified Code(s): J96.00 - Acute respiratory failure, unspecified whether with hypoxia or hypercapnia Code(s): J96.00 - Acute respiratory failure, unspecified whether with hypoxia or hypercapnia Status: Acute Assessment and Plan: Most likely secondary to worsening pneumonia patient is off vent, continue iv steroids for wheezy lungs and dry throat. Subjective Date/time seen: 08/03/19 16:03 Interval history: Patient is 59-year-old female presented emergency department with persistent cough abdominal pain nausea vomiting, patient also had vaginal discharge and she was seen by her retail support manager diagnosed with bacterial vaginosis started the patient on Flagyl and doxycycline however patient did not take the medication because as see did not like the taste of the medications, see presented emergency department with a complaint of persistent cough C found to pneumonia and see was in sepsis with hypotension however patient lactic acid is normal as well as white counts are normal, patient was started on Levophed vigorously hydrated seen by recreation officer patient is off Levophed more than 72hours, a
[2019-08-03 18:37] LABS: Glucose Point of Care 137 (65-105)
[2019-08-03] MEDS: ACETAMINOPHEN 325 MG TABLET 650 MG PO (20:26)
[2019-08-04] VITALS (21 sets, daily range): BP systolic 109–146; BP diastolic 55–84; PULSE 67–102; RESP 16–29; TEMP 36.7–37; O2SAT 94–99
[2019-08-04] MEDS: IPRATROPIUM BR 0.02% INH SOLN 0.5 MG/2.5 ML VIAL INHALATION ×4 (02:13→21:17)
[2019-08-04] MEDS: ALBUTEROL SULFATE NEB 2.5 MG/0.5 ML INH 5 MG INHALATION ×4 (02:13→21:17)
[2019-08-04] MEDS: methylPREDNISolone SOD SUCC 40 MG VIAL IV PUSH ×2 (02:21→13:16)
[2019-08-04] MEDS: BENZOCAINE/MENTHOL (*BKC) 18 EA LOZENGE 1 LOZENGE PO (05:16)
[2019-08-04 05:40] LABS: Hematocrit 23.3 % (37.0-47.0); Mean Corpuscular HGB Conc 34.3 g/dl (32-36); Mean Corpuscular Hemoglobin 33.6 pg (26-34); Mean Corpuscular Volume 97.9 fl (80-100); Mean Platelet Volume 9.9 fl (7.4-10.4); Platelet Count Result 84 k/mm3 (150-375); Red Blood Count 2.38 M/mm3 (4.2-5.4); Red Cell Distribution Width 16.3 % (11.5-14.5); White Blood Count 10.8 K/mm3 (4.5-10.0)
[2019-08-04 06:00] LABS: Blood Urea Nitrogen 54 mg/dL (7-17); Calcium 8.7 mg/dL (8.4-10.2); Carbon Dioxide 31 mmol/L (22-30); Chloride 103 mmol/L (98-107); Estimated CRCL calculation 32 ml/min; Estimated Glomerular Filt Rate 35; Glucose 122 mg/dL (65-105); Magnesium 2.1 mg/dL (1.6-2.3); Phosphorus 3.6 mg/dL (2.5-4.5); Potassium 3.3 mmol/L (3.4-5.0); Sodium 142 mmol/L (137-145)
[2019-08-04] MEDS: HEPARIN SODIUM 5,000 UNITS/ML VIAL 5000 UNITS SUB-Q ×2 (09:28→20:11)
[2019-08-04] MEDS: FAMOTIDINE 20 MG/2 ML VIAL IV PUSH ×2 (09:28→20:11)
[2019-08-04] MEDS: CARBAMAZEPINE 100 MG CHEW PO ×2 (09:29→20:10)
--- NOTE | 2019-08-04 10:40 | WPDINTPN ---
Progress Note: A&P Assessment and Plan (1) Acute respiratory failure: Qualifiers: Respiratory failure complication: unspecified whether with hypoxia or hypercapnia Qualified Code(s): J96.00 - Acute respiratory failure, unspecified whether with hypoxia or hypercapnia Code(s): J96.00 - Acute respiratory failure, unspecified whether with hypoxia or hypercapnia Status: Acute Assessment and Plan: - Chest x-ray mild PVC and RLL infilterate. Patient was intubated 07/27/2019 and extubated 08/03/2019 - CXR and ABG reviewed - Continue on bronchodilators - Precedex has been turned off - speech eval to look for aspiration - has completed 8 day course of abx. (2) Septic shock: Code(s): A41.9 - Sepsis, unspecified organism; R65.21 - Severe sepsis with septic shock Status: Acute Assessment and Plan: RESOLVED: patient has been off all vasopressors for > 72 hours - patient initially presented with shortness of breath, cough, vaginal infection. Patient was hypotensive in the ED, received adequate IV fluids, and was started on vasopressors. - appreciate infectious disease evaluation and recommendations, completed cefepime. ( vancomycin and Flagyl have been discontinued) - blood and urine cultures are negative. sputum culture also negative - influenza A and B are negative. - art line d/c yesterday - will get peripheral Iv and d/c central line.. (3) Pneumonia: Qualifiers: Pneumonia type: due to unspecified organism Laterality: unspecified laterality Lung location: unspecified part of lung Qualified Code(s): J18.9 - Pneumonia, unspecified organism Code(s): J18.9 - Pneumonia, unspecified organism Status: Acute Assessment and Plan: - chest x-ray shows RLL infilterate ? aspiration - completed 8 day course of abx - barium swallow today (4) Vaginal infection: Code(s): N76.0 - Acute vaginitis Status: Resolved Assessment and Plan: patient was recently seen by OBGYN, was told that she has a bacterial vaginal infection - was started on doxycycline and Flagyl orally, patient did not like the taste of those medications so she had stopped taking them - infectious disease following and all abx d/c (5) Acute renal failure superimposed on stage 4 chronic kidney disease: Onset Date: ~07/2019 Qualifiers: Acute renal failure type: unspecified Qualified Code(s): N17.9 - Acute kidney failure, unspecified; N18.4 - Chronic kidney disease, stage 4 (severe) Code(s): N17.9 - Acute kidney failure, unspecified; N18.4 - Chronic kidney disease, stage 4 (severe) Status: Acute Assessment and Plan: Patient with history of stage 4 chronic kidney disease. - acute on chronic kidney disease likely related to septic shock, hypovolemia, ATN - continue to monitor urine output, electrolytes and renal function - Rig Welder slightly improved - Replace low K (6) Seizure: Code(s): R56.9 - Unspecified convulsions Status: Acute Assessment and Plan: patient with history of seizures, continue carbamazepine (7) DVT prophylaxis: Code(s): Z29.9 - Encounter for prophylactic measures, unspecified Status: Acute Assessment and Plan: heparin SQ Pepcid for GI prophylaxis Additional Plan Code status: full code Time spent- 30 min Subjective Date/time seen: 08/04/19 10:40 Interval history: 08/02- No significant overnight events noted. She was diuresed with Lasix yesterday and has a negative net fluid balance of 1.5 L. chest x-ray with improvement. Renal better meter but worsened compared to yesterday. Still on mechanical ventilation but FiO2 is down to 40% and PEEP of 8. 08/03- off all sedation and did well with SBT . Has white frothy secretions . May need BIPAP post extubation . 08/04- extubated yesterday . Didnot need BIPAP. Hoarseness of voice with increased cough noted. started on 4 dose
--- NOTE | 2019-08-04 10:49 | PCSTNOTE ---
Please refer to the Bedside Swallow Evaluation in the EMR.
--- NOTE | 2019-08-04 12:53 | PCSTNOTE ---
Please refer to the Modified Barium Swallow Evaluation in the EMR.
--- NOTE | 2019-08-04 13:14 | PCDIET ---
ICU Rounding Note: Patient NPO post-extubation; awaiting swallow study. Last recorded weight is 73.7kg which is significantly decreased. Recommend reweighing for accuracy. Noted I/O negative. Bowel Motility: No reported BM. Labs Reviewed: Glu (122), BUN (54), Cr (1.5), K (3.3) Meds Noted: Albuterol, Atrovent, Miralax, Pepcid, Solu Medrol Additional Notes: Recommend advancing diet as tolerated if patient passes swallow evaluation (low sodium, low protein). Recommend K+ replacement, as medically appropriate. Following daily in ICU rounds. Assessing/reassessing every Friday/Friday.
--- NOTE | 2019-08-04 14:33 | WPDINFPN2 ---
Progress Note: A&P Assessment and Plan (1) Pneumonia: Qualifiers: Pneumonia type: due to unspecified organism Laterality: unspecified laterality Lung location: unspecified part of lung Qualified Code(s): J18.9 - Pneumonia, unspecified organism Code(s): J18.9 - Pneumonia, unspecified organism Status: Acute Assessment and Plan: 1. Lung infiltrates, infectious vs other. 2. MV abnormality, of questionable significance 3. Respiratory failure, extubated 4. Cirrhosis 5. Renal failure REC Off antibiotic (Cefepime 8 days) and stable. The temperature as above may be related to #1. But the R IJ CVC should be removed as soon as feasible, since it may be a potential source of new infection Subjective Date/time seen: 08/04/19 14:33 Interval history: feeling better, no sputum, no subjective fever Exam Narrative: Exam Narrative: t max 37.8 Const: General: no acute distress Eyes: General: appearance normal, both eyes and all related structures Resp: Effort & Inspection: normal respiratory effort Auscultation: no rales, no wheezes and diminished lung sounds Cardio: Rate: regular rate Rhythm: regular rhythm GI: Inspection: non-distended GI Palp: Yes Soft to palpation and No Tenderness to palpation present (GI) Skin: General skin exam: normal color Objective Data Vital Signs Vital Signs: Vital Signs - 24 hr 08/03/19 16:00 08/03/19 18:00 08/03/19 19:49 Temperature 37.7 C H Pulse Rate 104 H 93 89 Respiratory Rate 20 21 H 19 Blood Pressure 116/83 132/73 Pulse Oximetry 95 96 08/03/19 20:00 08/03/19 20:05 08/03/19 20:26 Temperature 37.8 C H Pulse Rate 93 Respiratory Rate 19 Blood Pressure Pulse Oximetry 100 08/03/19 20:30 08/03/19 20:45 08/03/19 21:26 Temperature 37.8 C H 37.6 C Pulse Rate 101 H Respiratory Rate 28 H Blood Pressure 129/58 L Pulse Oximetry 95 100 08/03/19 22:00 08/04/19 00:00 08/04/19 02:00 Temperature 36.8 C Pulse Rate 91 91 79 Respiratory Rate 24 H 21 H 22 H Blood Pressure 112/50 L 109/60 111/55 L Pulse Oximetry 98 97 99 08/04/19 02:15 08/04/19 02:25 08/04/19 04:00 Temperature 37.0 C Pulse Rate 82 67 84 Respiratory Rate 21 H 26 H 24 H Blood Pressure 129/80 Pulse Oximetry 97 08/04/19 06:00 08/04/19 08:00 08/04/19 08:48 Temperature 36.7 C Pulse Rate 91 87 81 Respiratory Rate 24 H 20 22 H Blood Pressure 143/77 H 134/72 Pulse Oximetry 97 99 99 08/04/19 09:00 08/04/19 10:00 08/04/19 12:00 Temperature 36.8 C Pulse Rate 97 87 90 Respiratory Rate 19 29 H 19 Blood Pressure 118/56 L 109/84 Pulse Oximetry 96 98 08/04/19 14:00 Temperature Pulse Rate 87 Respiratory Rate 22 H Blood Pressure 137/83 Pulse Oximetry 97 Intake/Output Intake/Output: Intake & Output 08/01/19 08/02/19 08/03/19 08/04/19 23:59 23:59 23:59 23:59 Intake Total 628 899 858 Output Total 3272 4125 4000 1250 [facility] [place] -[phone] Meds/Results Medications: Active Medications Generic Name Dose Route Start Last Admin Trade Name Freq PRN Reason Stop Dose Admin Acetaminophen 650 mg 07/26/19 06:19 08/03/19 20:26 Tylenol Tablet PO 650 mg Q4H PRN Administration Mild Pain (1-3) or Fever Albuterol 5 mg 07/26/19 08:00 08/04/19 08:48 Albuterol Sulf Neb 2.5mg/0.5ml INHALATION 5 mg Q6HRT RYDER Administration Benzocaine 1 lozenge 07/27/19 06:13 08/04/19 05:16 Chloraseptic Lozenge PO 1 lozenge PRN PRN Administration Sore Throat Calcium Carbonate 200 mg 07/26/19 09:00 07/29/19 08:18 Tums PO Not Given BID RYDER Carbamazepine 100 mg 07/26/19 21:00 08/04/19 09:29 Tegretol Chew PO 100 mg Q12HR RYDER Administration Famotidine 20 mg 07/31/19 09:00 08/04/19 09:28 Pepcid Iv IV PUSH 20 mg Q12HR RYDER Administration Guaifenesin 600 mg 07/26/19 21:00 07/29/19 08:18 Mucinex 12 Hr Tab PO Not Given Q12HR [facility] Heparin Sodium (Porcine) 5,000 u
--- NOTE | 2019-08-04 18:33 | PM.IMPN ---
Progress Note: A&P Assessment and Plan (1) Septic shock: Code(s): A41.9 - Sepsis, unspecified organism; R65.21 - Severe sepsis with septic shock Status: Acute Assessment and Plan: 08/02/19 16:06 Patient is 59-year-old female presented emergency department with persistent cough abdominal pain nausea vomiting, patient also had vaginal discharge and she was seen by her city library director diagnosed with bacterial vaginosis started the patient on Flagyl and doxycycline however patient did not take the medication because as see did not like the taste of the medications, see presented emergency department with a complaint of persistent cough (2) Pulmonary edema: Qualifiers: Chronicity: acute Qualified Code(s): J81.0 - Acute pulmonary edema Code(s): J81.1 - Chronic pulmonary edema Status: Resolved Assessment and Plan: Patient with pulmonary edema resolved (3) Normocytic anemia: Code(s): D64.9 - Anemia, unspecified Status: Acute Assessment and Plan: acute vs. chronic. No history of bleeding. Monitor H/H, transfuse prn. (4) Transaminitis: Code(s): R74.0 - Nonspecific elevation of levels of transaminase and lactic acid dehydrogenase [LDH] Status: Acute Assessment and Plan: Likely secondary to hypoperfusion. Monitor LFTs (5) Seizure: Code(s): R56.9 - Unspecified convulsions Status: Acute Assessment and Plan: The pateint has had an acute seizure the day before arrival, We will continue her Carbamazepine. neurology on board (6) Vaginal infection: Code(s): N76.0 - Acute vaginitis Status: Resolved (7) Acute renal failure superimposed on stage 4 chronic kidney disease: Onset Date: ~07/2019 Qualifiers: Acute renal failure type: unspecified Qualified Code(s): N17.9 - Acute kidney failure, unspecified; N18.4 - Chronic kidney disease, stage 4 (severe) Code(s): N17.9 - Acute kidney failure, unspecified; N18.4 - Chronic kidney disease, stage 4 (severe) Status: Acute Assessment and Plan: Likely secondary to hypoperfusion from septic shock. Monitor renal function. (8) Hypertension: Qualifiers: Hypertension type: unspecified Qualified Code(s): I10 - Essential (primary) hypertension Code(s): I10 - Essential (primary) hypertension Status: Chronic (9) Elevated cholesterol: Code(s): E78.00 - Pure hypercholesterolemia, unspecified Status: Chronic Assessment and Plan: Continue statin therapy. (10) Acute respiratory failure: Qualifiers: Respiratory failure complication: unspecified whether with hypoxia or hypercapnia Qualified Code(s): J96.00 - Acute respiratory failure, unspecified whether with hypoxia or hypercapnia Code(s): J96.00 - Acute respiratory failure, unspecified whether with hypoxia or hypercapnia Status: Acute Assessment and Plan: Most likely secondary to pneumonia patient is off vent, continue iv steroids for wheezy lungs and dry throat. Subjective Date/time seen: 08/04/19 18:33 Interval history: Patient is 59-year-old female presented emergency department with persistent cough abdominal pain nausea vomiting, patient also had vaginal discharge and she was seen by her city library director diagnosed with bacterial vaginosis started the patient on Flagyl and doxycycline however patient did not take the medication because as see did not like the taste of the medications, see presented emergency department with a complaint of persistent cough C found to pneumonia and see was in sepsis with hypotension however patient lactic acid is normal as well as white counts are normal, patient was started on Levophed vigorously hydrated seen by medical consultant patient is off Levophed more than 72hours, and had bee treated with Cefepime, vancomycin and Flagyl, seen by Dr. Ramirez chest x-ray does not show significant infiltrates patient i
[2019-08-04] MEDS: GUAIFENESIN/DEXTROMETHORPHAN 10 ML UDC PO (22:10)
[2019-08-05] VITALS (17 sets, daily range): BP systolic 112–146; BP diastolic 39–74; PULSE 82–101; RESP 16–28; TEMP 36.5–37; O2SAT 93–100
[2019-08-05] MEDS: methylPREDNISolone SOD SUCC 40 MG VIAL IV PUSH (02:12)
[2019-08-05] MEDS: GUAIFENESIN/DEXTROMETHORPHAN 10 ML UDC PO ×2 (02:14→17:53)
[2019-08-05] MEDS: IPRATROPIUM BR 0.02% INH SOLN 0.5 MG/2.5 ML VIAL INHALATION ×3 (02:17→15:30)
[2019-08-05] MEDS: ALBUTEROL SULFATE NEB 2.5 MG/0.5 ML INH 5 MG INHALATION ×3 (02:17→15:29)
[2019-08-05 05:57] LABS: Hematocrit 26.3 % (37.0-47.0); Hemoglobin 8.1 g/dL (12.0-15.0); Mean Corpuscular HGB Conc 30.8 g/dl (32-36); Mean Corpuscular Hemoglobin 29.2 pg (26-34); Mean Corpuscular Volume 94.9 fl (80-100); Mean Platelet Volume 10.5 fl (7.4-10.4); Platelet Count Result 88 k/mm3 (150-375); Red Blood Count 2.77 M/mm3 (4.2-5.4); Red Cell Distribution Width 14.6 % (11.5-14.5); White Blood Count 10.3 K/mm3 (4.5-10.0)
[2019-08-05 06:13] LABS: Blood Urea Nitrogen 45 mg/dL (7-17); Carbon Dioxide 30 mmol/L (22-30); Chloride 105 mmol/L (98-107); Estimated CRCL calculation 36 ml/min; Estimated Glomerular Filt Rate 42; Glucose 121 mg/dL (65-105); Magnesium 2.2 mg/dL (1.6-2.3); Phosphorus 3.2 mg/dL (2.5-4.5); Potassium 3.7 mmol/L (3.4-5.0); Sodium 141 mmol/L (137-145)
[2019-08-05] MEDS: CARBAMAZEPINE 100 MG CHEW PO ×2 (09:57→21:08)
[2019-08-05] MEDS: FAMOTIDINE 20 MG/2 ML VIAL IV PUSH (09:57)
[2019-08-05] MEDS: HEPARIN SODIUM 5,000 UNITS/ML VIAL 5000 UNITS SUB-Q ×2 (09:57→21:08)
--- NOTE | 2019-08-05 11:37 | WPDINTPN ---
Progress Note: A&P Assessment and Plan (1) Acute respiratory failure: Qualifiers: Respiratory failure complication: unspecified whether with hypoxia or hypercapnia Qualified Code(s): J96.00 - Acute respiratory failure, unspecified whether with hypoxia or hypercapnia Code(s): J96.00 - Acute respiratory failure, unspecified whether with hypoxia or hypercapnia Status: Acute Assessment and Plan: - patient presented with ARDS was intubated 07/27/2019 and extubated 08/03/2019 - CXR and ABG reviewed - Continue on bronchodilators - patient passed a speech evaluation is on regular diet - continue PT/OT - has completed 8 day course of abx. (2) Septic shock: Code(s): A41.9 - Sepsis, unspecified organism; R65.21 - Severe sepsis with septic shock Status: Acute Assessment and Plan: RESOLVED: patient has been off all vasopressors for > 72 hours - patient initially presented with shortness of breath, cough, vaginal infection. Patient was hypotensive in the ED, received adequate IV fluids, and was started on vasopressors. - appreciate infectious disease evaluation and recommendations, completed cefepime. - blood and urine cultures are negative. sputum culture also negative - influenza A and B are negative. - will get peripheral Iv and d/c central line. (3) Pneumonia: Qualifiers: Pneumonia type: due to unspecified organism Laterality: unspecified laterality Lung location: unspecified part of lung Qualified Code(s): J18.9 - Pneumonia, unspecified organism Code(s): J18.9 - Pneumonia, unspecified organism Status: Acute Assessment and Plan: - chest x-ray shows RLL infilterate ? aspiration - completed 8 day course of abx (4) Vaginal infection: Code(s): N76.0 - Acute vaginitis Status: Resolved Assessment and Plan: patient was recently seen by OBGYN, was told that she has a bacterial vaginal infection - was started on doxycycline and Flagyl orally, patient did not like the taste of those medications so she had stopped taking them - infectious disease following and all abx d/c (5) Acute renal failure superimposed on stage 4 chronic kidney disease: Onset Date: ~07/2019 Qualifiers: Acute renal failure type: unspecified Qualified Code(s): N17.9 - Acute kidney failure, unspecified; N18.4 - Chronic kidney disease, stage 4 (severe) Code(s): N17.9 - Acute kidney failure, unspecified; N18.4 - Chronic kidney disease, stage 4 (severe) Status: Acute Assessment and Plan: Patient with history of stage 4 chronic kidney disease. 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 I answered all questions. Patient be transferred out of the ICU which the patient and her family are aware off. Code status: Full code Critical care time spent: 31 minutes Due to a high probability of clinically significant, life threatening deterioration, the patient required my highest level of preparedness to intervene emergently and I personally spent this critical care time directly and personally managing the patient. This critical care time included obtaining a history; examining the patient; pulse oximetry; ordering and review of studies; arranging urgent treatment with development of
--- NOTE | 2019-08-05 11:52 | PCDIET ---
ICU Rounding Note: Patient extubated and on regular diet post-swallow evaluation. c/o altered taste and poor appetite. MD ordered Thrive Ice Cream (270kcal, 9g protein). Reviewed options on menu and encouraged patient to try different items. Friend bringing patient tacos and cake from home later today, patient states, but is agreeable to try Thrive. Last recorded weight is 93.6kg which is increased from yesterday, but overall down. I/O negative. Bowel Motility: +BM today. Labs Reviewed: Glu (121), BUN (45), Cr (1.3), Hgb (8.1), Hct (26.3) Meds Noted: Pepcid, Miralax, Heparin, Pepcid, Albuterol Additional Notes: No documented skin breakdown. Recommend continuing regular diet until intakes improve. Following daily in ICU rounds. Assessing/reassessing every Friday/Friday.
--- NOTE | 2019-08-05 14:08 | WPDINFPN2 ---
Progress Note: A&P Assessment and Plan (1) Pneumonia: Qualifiers: Pneumonia type: due to unspecified organism Laterality: unspecified laterality Lung location: unspecified part of lung Qualified Code(s): J18.9 - Pneumonia, unspecified organism Code(s): J18.9 - Pneumonia, unspecified organism Status: Acute Assessment and Plan: 1. Lung infiltrates, infectious vs other. 2. MV abnormality, of questionable significance 3. Respiratory failure, extubated 4. Cirrhosis 5. Renal failure REC Off antibiotic (Cefepime 8 days) and stable. Will sign off, thanks. Remove CVC as soon as appropriate. Subjective Date/time seen: 08/05/19 14:08 Interval history: no new complaints Exam Narrative: Exam Narrative: afebrile Const: General: no acute distress Resp: Effort & Inspection: normal respiratory effort Auscultation: clear to auscultation bilaterally and diminished lung sounds Objective Data Vital Signs Vital Signs: Vital Signs - 24 hr 08/04/19 15:06 08/04/19 15:18 08/04/19 16:00 Temperature 36.8 C Pulse Rate 83 93 99 Respiratory Rate 22 H 25 H 25 H Blood Pressure 124/66 Pulse Oximetry 94 08/04/19 18:00 08/04/19 20:00 08/04/19 21:18 Temperature 36.8 C Pulse Rate 93 86 84 Respiratory Rate 19 28 H 28 H Blood Pressure 142/76 H 146/79 H Pulse Oximetry 94 97 08/04/19 21:23 08/04/19 21:24 08/04/19 22:00 Temperature Pulse Rate 85 98 Respiratory Rate 16 27 H Blood Pressure 135/62 Pulse Oximetry 98 96 08/05/19 00:00 08/05/19 02:00 08/05/19 02:17 Temperature 36.8 C Pulse Rate 87 92 90 Respiratory Rate 27 H 25 H 21 H Blood Pressure 136/70 142/74 H Pulse Oximetry 100 100 08/05/19 02:29 08/05/19 04:00 08/05/19 06:00 Temperature 36.7 C Pulse Rate 90 87 89 Respiratory Rate 18 28 H 25 H Blood Pressure 142/74 H 146/72 H Pulse Oximetry 98 96 08/05/19 08:00 08/05/19 08:51 08/05/19 09:02 Temperature 36.9 C Pulse Rate 92 82 90 Respiratory Rate 24 H 18 18 Blood Pressure 128/65 Pulse Oximetry 97 98 08/05/19 09:32 08/05/19 10:00 Temperature Pulse Rate 85 94 Respiratory Rate 20 23 H Blood Pressure 123/66 Pulse Oximetry 96 94 Intake/Output Intake/Output: Intake & Output 08/02/19 08/03/19 08/04/19 08/05/19 23:59 23:59 23:59 23:59 Intake Total 899 858 480 480 Output Total 4122 4136 1900 096 [facility] -[phone] -[id number] -1420 -170 Meds/Results Medications: Active Medications Generic Name Dose Route Start Last Admin Trade Name Freq PRN Reason Stop Dose Admin Acetaminophen 650 mg 07/26/19 06:19 08/03/19 20:26 Tylenol Tablet PO 650 mg Q4H PRN Administration Mild Pain (1-3) or Fever Albuterol 5 mg 08/05/19 16:00 Albuterol Sulf Neb 2.5mg/0.5ml INHALATION Q8HRT RYDER Albuterol 5 mg 08/05/19 12:39 Albuterol Sulf Neb 2.5mg/0.5ml INHALATION Q6HRT PRN Shortness Of Breath Albuterol 2 puff 08/05/19 13:17 Proventil Hfa INHALATION Q4H PRN Wheezing Albuterol 2.5 mg 08/05/19 13:17 Albuterol Sulf Neb 2.5mg/0.5ml INHALATION Q8HRT PRN Shortness Of Breath Aspirin 81 mg 08/06/19 09:00 Aspirin Chewable PO DAILY RYDER Benzocaine 1 lozenge 07/27/19 06:13 08/04/19 05:16 Chloraseptic Lozenge PO 1 lozenge PRN PRN Administration Sore Throat Calcium Carbonate 200 mg 07/26/19 09:00 07/29/19 08:18 Tums PO Not Given BID RYDER Carbamazepine 100 mg 07/26/19 21:00 08/05/19 09:57 Tegretol Chew PO 100 mg Q12HR RYDER Administration Ezetimibe 10 mg 08/06/19 09:00 Zetia PO DAILY RYDER Furosemide 20 mg 08/05/19 13:17 Lasix Tablet PO DAILY PRN edema Guaifenesin 600 mg 07/26/19 21:00 07/29/19 08:18 Mucinex 12 Hr Tab PO Not Given Q12HR RYDER Guaifenesin/Dextromethorphan 10 ml 08/04/19 16:28 08/05/19 02:14 Robitussin-Dm Syrup PO 10 ml Q4H PRN Administration Cough Heparin Sodium (Porcine)
--- NOTE | 2019-08-05 14:19 | PM.IMPN ---
Progress Note: A&P Assessment and Plan (1) Septic shock: Code(s): A41.9 - Sepsis, unspecified organism; R65.21 - Severe sepsis with septic shock Status: Acute Assessment and Plan: 08/02/19 16:06 Patient is 59-year-old female presented emergency department with persistent cough abdominal pain nausea vomiting, patient also had vaginal discharge and she was seen by her dog license officer supervisor diagnosed with bacterial vaginosis started the patient on Flagyl and doxycycline however patient did not take the medication because as see did not like the taste of the medications, see presented emergency department with a complaint of persistent cough (2) Pulmonary edema: Qualifiers: Chronicity: acute Qualified Code(s): J81.0 - Acute pulmonary edema Code(s): J81.1 - Chronic pulmonary edema Status: Resolved Assessment and Plan: Patient with pulmonary edema resolved (3) Normocytic anemia: Code(s): D64.9 - Anemia, unspecified Status: Acute Assessment and Plan: acute vs. chronic. No history of bleeding. Monitor H/H, transfuse prn. (4) Transaminitis: Code(s): R74.0 - Nonspecific elevation of levels of transaminase and lactic acid dehydrogenase [LDH] Status: Acute Assessment and Plan: Likely secondary to hypoperfusion. Monitor LFTs (5) Seizure: Code(s): R56.9 - Unspecified convulsions Status: Acute Assessment and Plan: The pateint has had an acute seizure the day before arrival, We will continue her Carbamazepine. neurology on board (6) Vaginal infection: Code(s): N76.0 - Acute vaginitis Status: Resolved (7) Acute renal failure superimposed on stage 4 chronic kidney disease: Onset Date: ~07/2019 Qualifiers: Acute renal failure type: unspecified Qualified Code(s): N17.9 - Acute kidney failure, unspecified; N18.4 - Chronic kidney disease, stage 4 (severe) Code(s): N17.9 - Acute kidney failure, unspecified; N18.4 - Chronic kidney disease, stage 4 (severe) Status: Acute Assessment and Plan: Likely secondary to hypoperfusion from septic shock. Monitor renal function. (8) Hypertension: Qualifiers: Hypertension type: unspecified Qualified Code(s): I10 - Essential (primary) hypertension Code(s): I10 - Essential (primary) hypertension Status: Chronic (9) Elevated cholesterol: Code(s): E78.00 - Pure hypercholesterolemia, unspecified Status: Chronic Assessment and Plan: Continue statin therapy. (10) Acute respiratory failure: Qualifiers: Respiratory failure complication: unspecified whether with hypoxia or hypercapnia Qualified Code(s): J96.00 - Acute respiratory failure, unspecified whether with hypoxia or hypercapnia Code(s): J96.00 - Acute respiratory failure, unspecified whether with hypoxia or hypercapnia Status: Acute Assessment and Plan: Most likely secondary to pneumonia patient is off vent, continue albuterol prn for wheezy lungs and dry throat. stop iv steroids and iv abx Additional Plan pt will need pt/ot on the medical floor Subjective Date/time seen: 08/05/19 14:19 Interval history: Patient is 59-year-old female presented emergency department with persistent cough abdominal pain nausea vomiting, patient also had vaginal discharge and she was seen by her dog license officer supervisor diagnosed with bacterial vaginosis started the patient on Flagyl and doxycycline however patient did not take the medication because as see did not like the taste of the medications, see presented emergency department with a complaint of persistent cough C found to pneumonia and see was in sepsis with hypotension however patient lactic acid is normal as well as white counts are normal, patient was started on Levophed vigorously hydrated seen by operations program manager patient is off Levophed more than 72hours, and had been treated with Cefepime, vancomycin a
[2019-08-05] MEDS: CALCIUM CARBONATE (TUMS) 500 MG (200 MG ELEMENTAL) PO (17:53)
--- NOTE | 2019-08-05 18:48 | PC.NURSE ---
This patient, Leatha Winn, was transferred to [facility] on 08/05/19 at 1845. Personal belongings sent with patient. Report given to KP Padilla. Appropriate documentation sent with patient.
[2019-08-05] MEDS: MELATONIN 5 MG TABLET PO (21:35)
[2019-08-06] VITALS (12 sets, daily range): BP systolic 116–139; BP diastolic 59–74; PULSE 66–105; RESP 14–20; TEMP 36.7–36.9; O2SAT 92–99
[2019-08-06] MEDS: IPRATROPIUM BR 0.02% INH SOLN 0.5 MG/2.5 ML VIAL INHALATION ×3 (00:55→15:08)
[2019-08-06] MEDS: ALBUTEROL SULFATE NEB 2.5 MG/0.5 ML INH 5 MG INHALATION ×4 (00:55→15:08)
--- NOTE | 2019-08-06 03:45 | PC.NURSE ---
Pt has been very uncooperative, and unwilling to attempt to help with turns or personal care. Pt has been educated every time on reason her trying is needed and important, and pt becomes upset with staff during these conversations. Pt stated she isnt able to roll or move that much because she was in a coma and we are expecting to much for her .
[2019-08-06 06:20] LABS: Hematocrit 25.7 % (37.0-47.0); Hemoglobin 7.7 g/dL (12.0-15.0); Immature Platelet Fraction Pct 1.8 % (0.9-11.2); Mean Corpuscular Hemoglobin 28.9 pg (26-34); Mean Corpuscular Volume 96.6 fl (80-100); Mean Platelet Volume 10.3 fl (7.4-10.4); Platelet Count Result 77 k/mm3 (150-375); Red Blood Count 2.66 M/mm3 (4.2-5.4); Red Cell Distribution Width 14.8 % (11.5-14.5)
[2019-08-06 06:39] LABS: Blood Urea Nitrogen 37 mg/dL (7-17); Calcium 8.8 mg/dL (8.4-10.2); Carbon Dioxide 28 mmol/L (22-30); Chloride 105 mmol/L (98-107); Estimated CRCL calculation 43 ml/min; Estimated Glomerular Filt Rate 42; Glucose 91 mg/dL (65-105); Magnesium 1.9 mg/dL (1.6-2.3); Phosphorus 2.8 mg/dL (2.5-4.5); Potassium 3.5 mmol/L (3.4-5.0); Sodium 141 mmol/L (137-145)
[2019-08-06] MEDS: EZETIMIBE 10 MG TABLET PO (09:22)
[2019-08-06] MEDS: hydroCHLOROthiazide 12.5 MG CAPSULE PO (09:22)
[2019-08-06] MEDS: ASPIRIN 81 MG CHEWABLE TABLET PO (09:22)
[2019-08-06] MEDS: CALCIUM CARBONATE (TUMS) 500 MG (200 MG ELEMENTAL) PO ×2 (09:22→16:33)
[2019-08-06] MEDS: CARBAMAZEPINE 100 MG CHEW PO ×2 (09:22→21:35)
[2019-08-06] MEDS: lisinopriL 10 MG TABLET PO (09:23)
[2019-08-06] MEDS: LORATADINE 10 MG TABLET PO (09:23)
--- NOTE | 2019-08-06 11:19 | PCNFU ---
Nutrition Follow-Up Complete: Inadequate oral intake related to mechanical ventilation/oral intubation as evidenced by NPO diet. Patient to meet estimated nutritional needs. Goal: progressing towards goal. Pt current nutrition is Regular,Level 7. Nutrition recommendation:Agree Last recorded weight is 98.2 kg. Bowel Motility:+BM Labs Reviewed:GFR 42,BUN 37,Cr 1.3 Meds Noted:Melatonin,Tums Additional Notes: Patient had MBS 08/04-passed. Appetite has been poor, 10%. Patient is also receiving Thrive Ice Cream BID providing an additional 270 kcals and 9 gms protein. PO intake has been encouraged. Monitoring: Follow up every 5 days.
--- NOTE | 2019-08-06 14:38 | PM.IMPN ---
Progress Note: A&P Assessment and Plan (1) Septic shock: Code(s): A41.9 - Sepsis, unspecified organism; R65.21 - Severe sepsis with septic shock Status: Resolved Assessment and Plan: Patient is 59-year-old female presented emergency department with persistent cough abdominal pain nausea vomiting, patient also had vaginal discharge and she was seen by her direct sales professional diagnosed with bacterial vaginosis started the patient on Flagyl and doxycycline however patient did not take the medication because as see did not like the taste of the medications, see presented emergency department with a complaint of persistent cough (2) Pulmonary edema: Qualifiers: Chronicity: acute Qualified Code(s): J81.0 - Acute pulmonary edema Code(s): J81.1 - Chronic pulmonary edema Status: Resolved Assessment and Plan: Patient with pulmonary edema resolved (3) Normocytic anemia: Code(s): D64.9 - Anemia, unspecified Status: Acute Assessment and Plan: acute vs. chronic. No history of bleeding. Monitor H/H, transfuse prn. (4) Transaminitis: Code(s): R74.0 - Nonspecific elevation of levels of transaminase and lactic acid dehydrogenase [LDH] Status: Acute Assessment and Plan: Likely secondary to hypoperfusion. Monitor LFTs (5) Seizure: Code(s): R56.9 - Unspecified convulsions Status: Resolved Assessment and Plan: The pateint has had an acute seizure the day before arrival, We will continue her Carbamazepine. neurology on board (6) Vaginal infection: Code(s): N76.0 - Acute vaginitis Status: Resolved (7) Acute renal failure superimposed on stage 4 chronic kidney disease: Onset Date: ~07/2019 Qualifiers: Acute renal failure type: unspecified Qualified Code(s): N17.9 - Acute kidney failure, unspecified; N18.4 - Chronic kidney disease, stage 4 (severe) Code(s): N17.9 - Acute kidney failure, unspecified; N18.4 - Chronic kidney disease, stage 4 (severe) Status: Acute Assessment and Plan: Likely secondary to hypoperfusion from septic shock. Monitor renal function. Creat is 1.3 (8) Hypertension: Qualifiers: Hypertension type: unspecified Qualified Code(s): I10 - Essential (primary) hypertension Code(s): I10 - Essential (primary) hypertension Status: Chronic (9) Elevated cholesterol: Code(s): E78.00 - Pure hypercholesterolemia, unspecified Status: Chronic Assessment and Plan: Continue statin therapy. (10) Acute respiratory failure: Qualifiers: Respiratory failure complication: unspecified whether with hypoxia or hypercapnia Qualified Code(s): J96.00 - Acute respiratory failure, unspecified whether with hypoxia or hypercapnia Code(s): J96.00 - Acute respiratory failure, unspecified whether with hypoxia or hypercapnia Status: Acute Assessment and Plan: Most likely secondary to pneumonia patient is off vent, continue albuterol prn for wheezy lungs and dry throat. stop iv steroids and iv abx start oral medrol dose pack Additional Plan pt will need pt/ot on the medical floor Subjective Date/time seen: 08/06/19 14:38 Interval history: Patient is 59-year-old female presented emergency department with persistent cough abdominal pain nausea vomiting, patient also had vaginal discharge and she was seen by her direct sales professional diagnosed with bacterial vaginosis started the patient on Flagyl and doxycycline however patient did not take the medication because as see did not like the taste of the medications, see presented emergency department with a complaint of persistent cough C found to pneumonia and see was in sepsis with hypotension however patient lactic acid is normal as well as white counts are normal, patient was started on Levophed vigorously hydrated seen by grinder operator tool patient is off Levophed more than 72hours, and had been treate
[2019-08-06] MEDS: methylPREDNISolone (MEDROL) DOSEPACK 4 MG TABLETS PO ×4 (16:33→21:32)
[2019-08-06] MEDS: MELATONIN 5 MG TABLET PO (21:33)
[2019-08-06] MEDS: HEPARIN SODIUM 5,000 UNITS/ML VIAL 5000 UNITS SUB-Q (21:33)
[2019-08-07] VITALS (11 sets, daily range): BP systolic 114–136; BP diastolic 56–65; PULSE 82–100; RESP 14–18; TEMP 36.6–37.2; O2SAT 92–100
[2019-08-07] MEDS: ALBUTEROL SULFATE NEB 2.5 MG/0.5 ML INH 5 MG INHALATION ×3 (01:27→15:38)
[2019-08-07] MEDS: IPRATROPIUM BR 0.02% INH SOLN 0.5 MG/2.5 ML VIAL INHALATION ×3 (01:28→15:38)
[2019-08-07] MEDS: methylPREDNISolone (MEDROL) DOSEPACK 4 MG TABLETS PO ×4 (06:09→20:40)
[2019-08-07] MEDS: CALCIUM CARBONATE (TUMS) 500 MG (200 MG ELEMENTAL) PO ×2 (09:21→18:07)
[2019-08-07] MEDS: LORATADINE 10 MG TABLET PO (09:21)
[2019-08-07] MEDS: lisinopriL 10 MG TABLET PO (09:21)
[2019-08-07] MEDS: ASPIRIN 81 MG CHEWABLE TABLET PO (09:22)
[2019-08-07] MEDS: EZETIMIBE 10 MG TABLET PO (09:22)
[2019-08-07] MEDS: CARBAMAZEPINE 100 MG CHEW PO ×2 (09:22→20:39)
[2019-08-07] MEDS: hydroCHLOROthiazide 12.5 MG CAPSULE PO (09:22)
[2019-08-07] MEDS: ACETAMINOPHEN 325 MG TABLET 650 MG PO (11:41)
--- NOTE | 2019-08-07 12:55 | PM.IMPN ---
Progress Note: A&P Assessment and Plan (1) Septic shock: Code(s): A41.9 - Sepsis, unspecified organism; R65.21 - Severe sepsis with septic shock Status: Resolved Assessment and Plan: Patient is 59-year-old female presented emergency department with persistent cough abdominal pain nausea vomiting, patient also had vaginal discharge and she was seen by her cardiac rehabilitation program director diagnosed with bacterial vaginosis started the patient on Flagyl and doxycycline however patient did not take the medication because as see did not like the taste of the medications, see presented emergency department with a complaint of persistent cough found to have pneumonia and see was in sepsis with hypotension however patient lactic acid is normal as well as white counts are normal, patient was started on Levophed vigorously hydrated seen by content developer patient is off Levophed more than 72hours, and had been treated with Cefepime, vancomycin and Flagyl, seen by Dr. Ramirez chest x-ray does not show significant infiltrates patient is off abx. patient went into respiratory distress and had to be intubated 07/27, as per previous notes, pt was extubated, doing better mild cough and generalised weakness. TRC consult made, remove catheter, keep in central line. Encourage ambulation. Rpt cxr any AM. Add mucinex to oral steroids (2) Pulmonary edema: Qualifiers: Chronicity: acute Qualified Code(s): J81.0 - Acute pulmonary edema Code(s): J81.1 - Chronic pulmonary edema Status: Resolved Assessment and Plan: Patient with pulmonary edema resolved (3) Normocytic anemia: Code(s): D64.9 - Anemia, unspecified Status: Acute Assessment and Plan: acute vs. chronic. No history of bleeding. Monitor H/H, transfuse prn. (4) Transaminitis: Code(s): R74.0 - Nonspecific elevation of levels of transaminase and lactic acid dehydrogenase [LDH] Status: Acute Assessment and Plan: Likely secondary to hypoperfusion. Monitor LFTs (5) Seizure: Code(s): R56.9 - Unspecified convulsions Status: Resolved Assessment and Plan: The pateint has had an acute seizure the day before arrival, We will continue her Carbamazepine. neurology on board (6) Vaginal infection: Code(s): N76.0 - Acute vaginitis Status: Resolved (7) Acute renal failure superimposed on stage 4 chronic kidney disease: Onset Date: ~07/2019 Qualifiers: Acute renal failure type: unspecified Qualified Code(s): N17.9 - Acute kidney failure, unspecified; N18.4 - Chronic kidney disease, stage 4 (severe) Code(s): N17.9 - Acute kidney failure, unspecified; N18.4 - Chronic kidney disease, stage 4 (severe) Status: Acute Assessment and Plan: Likely secondary to hypoperfusion from septic shock. Monitor renal function. Creat is 1.3 (8) Hypertension: Qualifiers: Hypertension type: unspecified Qualified Code(s): I10 - Essential (primary) hypertension Code(s): I10 - Essential (primary) hypertension Status: Chronic (9) Elevated cholesterol: Code(s): E78.00 - Pure hypercholesterolemia, unspecified Status: Chronic Assessment and Plan: Continue statin therapy. (10) Acute respiratory failure: Qualifiers: Respiratory failure complication: unspecified whether with hypoxia or hypercapnia Qualified Code(s): J96.00 - Acute respiratory failure, unspecified whether with hypoxia or hypercapnia Code(s): J96.00 - Acute respiratory failure, unspecified whether with hypoxia or hypercapnia Status: Acute Assessment and Plan: Most likely secondary to pneumonia patient is off vent, continue albuterol prn for wheezy lungs and dry throat. stop iv steroids and iv abx start oral medrol dose pack add mucinex Additional Plan Continue PT/OT on the floor Subjective Date/time seen: 08/07/19 12:55 Interval history: Patient is 59-year-ol
[2019-08-07] MEDS: MELATONIN 5 MG TABLET PO (20:39)
[2019-08-08] VITALS (13 sets, daily range): BP systolic 109–111; BP diastolic 60–69; PULSE 86–103; RESP 16–20; TEMP 36.8; O2SAT 93–96
[2019-08-08] MEDS: ALBUTEROL SULFATE NEB 2.5 MG/0.5 ML INH 5 MG INHALATION ×4 (00:50→23:44)
[2019-08-08] MEDS: IPRATROPIUM BR 0.02% INH SOLN 0.5 MG/2.5 ML VIAL INHALATION ×4 (00:50→23:44)
[2019-08-08] MEDS: methylPREDNISolone (MEDROL) DOSEPACK 4 MG TABLETS PO ×4 (05:35→20:49)
[2019-08-08 06:05] LABS: Hematocrit 24.3 % (37.0-47.0); Hemoglobin 7.7 g/dL (12.0-15.0); Mean Corpuscular HGB Conc 31.7 g/dl (32-36); Mean Corpuscular Hemoglobin 30.9 pg (26-34); Mean Corpuscular Volume 97.6 fl (80-100); Mean Platelet Volume 10.7 fl (7.4-10.4); Platelet Count Result 54 k/mm3 (150-375); Red Blood Count 2.49 M/mm3 (4.2-5.4); White Blood Count 8.4 K/mm3 (4.5-10.0)
[2019-08-08 06:15] LABS: Blood Urea Nitrogen 27 mg/dL (7-17); Calcium 8.7 mg/dL (8.4-10.2); Carbon Dioxide 26 mmol/L (22-30); Chloride 102 mmol/L (98-107); Estimated CRCL calculation 45 ml/min; Estimated Glomerular Filt Rate 46; Glucose 88 mg/dL (65-105); Potassium 3.5 mmol/L (3.4-5.0); Sodium 138 mmol/L (137-145)
[2019-08-08] MEDS: ASPIRIN 81 MG CHEWABLE TABLET PO (09:49)
[2019-08-08] MEDS: CARBAMAZEPINE 100 MG CHEW PO ×2 (09:49→20:49)
[2019-08-08] MEDS: CALCIUM CARBONATE (TUMS) 500 MG (200 MG ELEMENTAL) PO ×2 (09:49→17:20)
[2019-08-08] MEDS: hydroCHLOROthiazide 12.5 MG CAPSULE PO (09:49)
[2019-08-08] MEDS: lisinopriL 10 MG TABLET PO (09:49)
[2019-08-08] MEDS: EZETIMIBE 10 MG TABLET PO (09:49)
[2019-08-08] MEDS: LORATADINE 10 MG TABLET PO (09:50)
--- NOTE | 2019-08-08 15:07 | PCPTNOTE ---
Patient refused treatment this session due to fatigue. Stated just way to tired this date have been working to hard lately want a day of rest.
--- NOTE | 2019-08-08 15:39 | PM.IMPN ---
Progress Note: A&P Assessment and Plan (1) Septic shock: Code(s): A41.9 - Sepsis, unspecified organism; R65.21 - Severe sepsis with septic shock Status: Resolved Assessment and Plan: Patient is 59-year-old female presented emergency department with persistent cough abdominal pain nausea vomiting, patient also had vaginal discharge and she was seen by her land development project manager diagnosed with bacterial vaginosis started the patient on Flagyl and doxycycline however patient did not take the medication because as see did not like the taste of the medications, see presented emergency department with a complaint of persistent cough found to have pneumonia and see was in sepsis with hypotension however patient lactic acid is normal as well as white counts are normal, patient was started on Levophed vigorously hydrated seen by project internship patient is off Levophed more than 72hours, and had been treated with Cefepime, vancomycin and Flagyl, seen by Dr. Ramirez chest x-ray does not show significant infiltrates patient is off abx. patient went into respiratory distress and had to be intubated 07/27, as per previous notes, pt was extubated, doing better mild cough and generalised weakness. TRC consult made, remove catheter, keep in central line. Encourage ambulation. Cxr shows no PNEUMONIA. Add mucinex and oral steroids (2) Pulmonary edema: Qualifiers: Chronicity: acute Qualified Code(s): J81.0 - Acute pulmonary edema Code(s): J81.1 - Chronic pulmonary edema Status: Resolved Assessment and Plan: Patient with pulmonary edema resolved (3) Normocytic anemia: Code(s): D64.9 - Anemia, unspecified Status: Acute Assessment and Plan: acute vs. chronic. No history of bleeding. Monitor H/H, transfuse prn. (4) Transaminitis: Code(s): R74.0 - Nonspecific elevation of levels of transaminase and lactic acid dehydrogenase [LDH] Status: Acute Assessment and Plan: Likely secondary to hypoperfusion. Monitor LFTs (5) Seizure: Code(s): R56.9 - Unspecified convulsions Status: Resolved Assessment and Plan: The pateint has had an acute seizure the day before arrival, We will continue her Carbamazepine. neurology on board (6) Vaginal infection: Code(s): N76.0 - Acute vaginitis Status: Resolved (7) Acute renal failure superimposed on stage 4 chronic kidney disease: Onset Date: ~07/2019 Qualifiers: Acute renal failure type: unspecified Qualified Code(s): N17.9 - Acute kidney failure, unspecified; N18.4 - Chronic kidney disease, stage 4 (severe) Code(s): N17.9 - Acute kidney failure, unspecified; N18.4 - Chronic kidney disease, stage 4 (severe) Status: Acute Assessment and Plan: Likely secondary to hypoperfusion from septic shock. Monitor renal function. Creat is 1.2 (8) Hypertension: Qualifiers: Hypertension type: unspecified Qualified Code(s): I10 - Essential (primary) hypertension Code(s): I10 - Essential (primary) hypertension Status: Chronic (9) Elevated cholesterol: Code(s): E78.00 - Pure hypercholesterolemia, unspecified Status: Chronic Assessment and Plan: Continue statin therapy. (10) Acute respiratory failure: Qualifiers: Respiratory failure complication: unspecified whether with hypoxia or hypercapnia Qualified Code(s): J96.00 - Acute respiratory failure, unspecified whether with hypoxia or hypercapnia Code(s): J96.00 - Acute respiratory failure, unspecified whether with hypoxia or hypercapnia Status: Acute Assessment and Plan: Most likely secondary to pneumonia patient is off vent, continue albuterol prn for wheezy lungs,on oral medrol dose pack add mucinex Additional Plan Continue PT/OT on the floor Subjective Date/time seen: 08/08/19 15:39 Interval history: Patient is 59-year-old female presented emergency departmen
--- NOTE | 2019-08-08 16:30 | PCOTNOTE ---
The patient treatment was not able to be completed. Will plan to continue treatment per plan of care.
[2019-08-08] MEDS: ACETAMINOPHEN 325 MG TABLET 650 MG PO (17:28)
[2019-08-08] MEDS: HEPARIN SODIUM 5,000 UNITS/ML VIAL 5000 UNITS SUB-Q (20:49)
[2019-08-08] MEDS: MELATONIN 5 MG TABLET PO (20:49)
[2019-08-08 21:21] LABS: Add Urine Microscopic? YES; Appearance Urine Clear (Clear); Bilirubin Urine Negative (Negative); Blood Urine 2+ (Negative); Color Urine Yellow (Yellow); Glucose Urine UA Negative (Negative); Ketones Urine Trace mg/dL (Negative); Leukocyte Esterase Ur Negative LEU/UL (NEGATIVE); Mucus Urine Rare /lpf; Nitrate Urine Negative (Negative); Protein Urine Negative (Negative); RBC Urine >75 /hpf (0-2); Specific Grav Ur 1.013 (1.001-1.035); Squamous Epithelial Cell Urine Few /hpf (Few); Urobilinogen Urine Negative mg/dL (<2.0); WBC Urine 0-3 /hpf (0-3)
[2019-08-09] VITALS (7 sets, daily range): BP systolic 117–138; BP diastolic 62–67; PULSE 85–101; RESP 16–20; TEMP 36.5–36.9; O2SAT 93–97
[2019-08-09] MEDS: methylPREDNISolone (MEDROL) DOSEPACK 4 MG TABLETS PO ×2 (05:50→11:48)
[2019-08-09] MEDS: IPRATROPIUM BR 0.02% INH SOLN 0.5 MG/2.5 ML VIAL INHALATION (08:58)
[2019-08-09] MEDS: ALBUTEROL SULFATE NEB 2.5 MG/0.5 ML INH 5 MG INHALATION (08:58)
[2019-08-09] MEDS: FUROSEMIDE 20 MG TABLET PO (09:01)
[2019-08-09] MEDS: EZETIMIBE 10 MG TABLET PO (09:01)
[2019-08-09] MEDS: hydroCHLOROthiazide 12.5 MG CAPSULE PO (09:01)
[2019-08-09] MEDS: HEPARIN SODIUM 5,000 UNITS/ML VIAL 5000 UNITS SUB-Q (09:01)
[2019-08-09] MEDS: CALCIUM CARBONATE (TUMS) 500 MG (200 MG ELEMENTAL) PO ×2 (09:03→16:07)
[2019-08-09] MEDS: ASPIRIN 81 MG CHEWABLE TABLET PO (09:04)
[2019-08-09] MEDS: CARBAMAZEPINE 100 MG CHEW PO (09:05)
[2019-08-09] MEDS: lisinopriL 10 MG TABLET PO (09:05)
[2019-08-09] MEDS: LORATADINE 10 MG TABLET PO (09:05)
[2019-08-09] MEDS: ACETAMINOPHEN 325 MG TABLET 650 MG PO (09:57)
[2019-08-09] MEDS: NEOMYCIN/POLYMYXIN/BACITRACIN OINTMENT PACKET 1 PACKET (13:20)
--- NOTE | 2019-08-09 14:21 | PCPTNOTE ---
The PT treatment was unable to be completed today due to patient refusal. Will continue per Plan of Care frequency and duration.
--- NOTE | 2019-08-09 14:52 | PM.DS ---
DS: Diagnosis Admitting Diagnosis Admitting Diagnosis: Sepsis, unspecified organism Discharge Diagnosis (1) Septic shock: Code(s): A41.9 - Sepsis, unspecified organism; R65.21 - Severe sepsis with septic shock Status: Resolved Assessment and Plan: Patient is 59-year-old female presented emergency department with persistent cough abdominal pain nausea vomiting, patient also had vaginal discharge and she was seen by her varnisher plasticoater diagnosed with bacterial vaginosis started the patient on Flagyl and doxycycline however patient did not take the medication because as see did not like the taste of the medications, see presented emergency department with a complaint of persistent cough found to have pneumonia and see was in sepsis with hypotension however patient lactic acid is normal as well as white counts are normal, patient was started on Levophed vigorously hydrated seen by electronic news gathering camera person patient is off Levophed more than 72hours, and had been treated with Cefepime, vancomycin and Flagyl, seen by Dr. Ramirez chest x-ray does not show significant infiltrates patient is off abx. patient went into respiratory distress and had to be intubated 07/27, as per previous notes, pt was extubated, doing better mild cough and generalised weakness. TRC consult made, remove catheter, keep in central line. Encourage ambulation. Rpt cxr any AM. Add mucinex to oral steroids (2) Pulmonary edema: Qualifiers: Chronicity: acute Qualified Code(s): J81.0 - Acute pulmonary edema Code(s): J81.1 - Chronic pulmonary edema Status: Resolved Assessment and Plan: Patient with pulmonary edema resolved (3) Normocytic anemia: Code(s): D64.9 - Anemia, unspecified Status: Acute Assessment and Plan: acute vs. chronic. No history of bleeding. Monitor H/H, transfuse prn. (4) Transaminitis: Code(s): R74.0 - Nonspecific elevation of levels of transaminase and lactic acid dehydrogenase [LDH] Status: Acute Assessment and Plan: Likely secondary to hypoperfusion. Monitor LFTs (5) Seizure: Code(s): R56.9 - Unspecified convulsions Status: Resolved Assessment and Plan: The pateint has had an acute seizure the day before arrival, We will continue her Carbamazepine. neurology on board (6) Vaginal infection: Code(s): N76.0 - Acute vaginitis Status: Resolved (7) Acute renal failure superimposed on stage 4 chronic kidney disease: Onset Date: ~07/2019 Qualifiers: Acute renal failure type: unspecified Qualified Code(s): N17.9 - Acute kidney failure, unspecified; N18.4 - Chronic kidney disease, stage 4 (severe) Code(s): N17.9 - Acute kidney failure, unspecified; N18.4 - Chronic kidney disease, stage 4 (severe) Status: Acute Assessment and Plan: Likely secondary to hypoperfusion from septic shock. Monitor renal function. Creat is 1.3 (8) Hypertension: Qualifiers: Hypertension type: unspecified Qualified Code(s): I10 - Essential (primary) hypertension Code(s): I10 - Essential (primary) hypertension Status: Chronic (9) Elevated cholesterol: Code(s): E78.00 - Pure hypercholesterolemia, unspecified Status: Chronic Assessment and Plan: Continue statin therapy. (10) Acute respiratory failure: Qualifiers: Respiratory failure complication: unspecified whether with hypoxia or hypercapnia Qualified Code(s): J96.00 - Acute respiratory failure, unspecified whether with hypoxia or hypercapnia Code(s): J96.00 - Acute respiratory failure, unspecified whether with hypoxia or hypercapnia Status: Acute Assessment and Plan: Most likely secondary to pneumonia patient is off vent, continue albuterol prn for wheezy lungs and dry throat. stop iv steroids and iv abx start oral medrol dose pack add mucinex DS: Summary Hospital Course Reason for hospitalization: This i
== END 2019-08-09 17:50 | DRG 870 ==
LOC: ANHED 02:58 → ANHICU 04:36 → ANH3MED 08-06 14:04 → ANHICU 08-10 09:53
PROVIDERS: Family Medicine; Internal Medicine; Internal Medicine Critical Care Medicine; Internal Medicine Infectious Disease; Admitting Provider Family Medicine; Emergency Provider Emergency Medicine; PCP Internal Medicine; Visit Provider Family Medicine
DX: A41.9 Sepsis, unspecified organism (principal); R65.21 Severe sepsis with septic shock; J18.9 Pneumonia, unspecified organism; J96.00 Acute respiratory failure, unspecified whether with hypoxia or hypercapnia; J81.0 Acute pulmonary edema; N17.0 Acute kidney failure with tubular necrosis; N18.4 Chronic kidney disease, stage 4 (severe); Z68.41 Body mass index [BMI] 40.0-44.9, adult; N25.81 Secondary hyperparathyroidism of renal origin; I12.9 Hypertensive chronic kidney disease with stage 1 through stage 4 chronic kidney disease, or unspecified chronic kidney disease; N76.0 Acute vaginitis; G40.909 Epilepsy, unspecified, not intractable, without status epilepticus; E78.00 Pure hypercholesterolemia, unspecified; E83.42 Hypomagnesemia; R74.0 Nonspecific elevation of levels of transaminase and lactic acid dehydrogenase [LDH]; J45.909 Unspecified asthma, uncomplicated; D64.9 Anemia, unspecified; E66.9 Obesity, unspecified; K74.60 Unspecified cirrhosis of liver; Z23 Encounter for immunization; Z86.73 Personal history of transient ischemic attack (TIA), and cerebral infarction without residual deficits
CPT/HCPCS: 31500; 36415; 36556; 36600; 51701; 71045; 71046; 80048; 80053; 80202; 81001; 82375; 82565; 82805; 83050; 83605; 83735; 83880; 84100; 84439; 84443; 84480; 84484; 85025; 85027; 85055; 85610; 85730; 86140; 87040; 87070; 87081; 87086; 87205; 87804; 90471; 90686; 92526; 92610; 92611; 93005; 93306; 93970; 94002; 94003; 94640; 96361; 96365; 96375; 97110; 97116; 97162; 97166; 97530; 97535; 99291; A9270; C1751; C9113; G0008; J0131; J0330; J0692; J1120; J1644; J1720; J1940; J1956; J2060; J2250; J2920; J3010; J3370; J3475; J3480; J7030; J7040; J7050; J7060; J7120; P9047

== ENCOUNTER 2020-01-19 10:53 | Outpatient (CLI) | payer MEDICARE, MEDICAID, SELFPAY ==
--- NOTE | ~2020-01-19 | CT_ITS ---
EXAMINATION: CT sinus wo con DATE: 01/19/2020 11:23 INDICATION: Nasal congestion. Headache. TECHNIQUE: Computed tomography (CT) of the paranasal sinuses was performed without intravenous contra st. The dose-length product was 283.39 mGy-cm. Automated exposure control and iterative reconstructio n technique were employed. COMPARISON: None FINDINGS: No significant mucosal thickening. No air-fluid levels. Paranasal sinuses are pneumatized. No mucoperiosteal reaction. No nasal septal deviation. Ostiomeatal units are patent. Mastoids are pne umatized. IMPRESSION: 1. No significant paranasal sinus disease. Reviewed, dictated and finalized at location B.
== END 2020-01-19 10:54 | disposition home or self-care (01) ==
LOC: ANHIMG 10:59
PROVIDERS: PCP Internal Medicine; Visit Provider Internal Medicine
DX: R09.81 Nasal congestion (principal); R51 Headache
CPT/HCPCS: 70486

== ENCOUNTER 2020-02-15 11:04 | Outpatient (CLI) | payer MEDICARE, MEDICAID, SELFPAY ==
--- NOTE | ~2020-02-15 | CT_ITS ---
EXAMINATION: CT abdomen pelvis wo con DATE: 02/15/2020 12:25 INDICATION: Right upper quadrant abdominal pain. TECHNIQUE: Computed tomography (CT) of the abdomen and pelvis was performed without intravenous contr ast. Automated exposure control and iterative reconstruction technique were employed. The dose-length product was 974.30 mGy-cm. COMPARISON: CT abdomen and pelvis 12/11/2018 FINDINGS: The visualized portions of the lung bases demonstrate mild atelectasis. No pleural effusion . The heart size is normal. No pericardial effusion. There are coronary artery calcifications. There is a small sliding hiatal hernia. The liver and spleen are normal. There are changes of cholecystecto my. The pancreas, adrenal glands, and kidneys are normal. There is no urolithiasis. There are no dila hedy loops of bowel. The appendix is normal. There are no pathologically enlarged lymph nodes. There i s no free intraperitoneal fluid. There is moderate thoracic spondylosis and severe lumbar spondylosis . Lumbar levoscoliosis is noted. IMPRESSION: 1. Small sliding hiatal hernia. Reviewed, dictated and finalized at location B.
[2020-02-15 13:03] LABS: Basophils Percent Auto 0.5 % (0.2-1.2); Eosinophils Absolute Auto 0.2 K/mm3 (0-0.3); Eosinophils Percent Auto 2.9 % (0-4.4); Hematocrit 38.1 % (37.0-47.0); Hemoglobin 12.4 g/dL (12.0-15.0); Immature Granulocyte Absolute 0.03 K/mm3 (0.00-0.031); Immature Granulocyte Percent A 0.4 % (0-0.5); Lymphocytes Absolute Auto 2.64 K/mm3 (0.9-3.2); Lymphocytes Percent Auto 34.6 % (18.3-44.2); Mean Corpuscular HGB Conc 32.5 g/dl (32-36); Mean Corpuscular Hemoglobin 29.4 pg (26-34); Mean Corpuscular Volume 90.3 fl (80-100); Mean Platelet Volume 8.8 fl (7.4-10.4); Monocytes Absolute Auto 0.5 K/mm3 (0.1-0.6); Monocytes Percent Auto 7.1 % (2.6-8.5); Neutrophils Absolute Auto 4.2 K/mm3 (1.3-6.7); Neutrophils Percent Auto 54.5 % (45.5-73.1); Platelet Count Result 194 k/mm3 (150-375); Red Blood Count 4.22 M/mm3 (4.2-5.4); Red Cell Distribution Width 13.7 % (11.5-14.5); White Blood Count 7.6 K/mm3 (4.5-10.0)
[2020-02-15 13:17] LABS: Alanine Aminotransferase 11 U/L (4-35); Albumin Level 4.6 g/dL (3.5-5.1); Alkaline Phosphatase 119 U/L (38-126); Amylase 96 U/L (30-110); Anion Gap 9 mmol/L (8-16); Aspartate Amino Transferase 20 U/L (14-36); Bilirubin,Total 0.3 mg/dL (0.2-1.3); Blood Urea Nitrogen 49 mg/dL (7-17); Calcium 9.5 mg/dL (8.4-10.2); Carbon Dioxide 25 mmol/L (22-30); Chloride 102 mmol/L (98-107); Estimated Glomerular Filt Rate 33; Glucose 96 mg/dL (65-105); Lipase 138 U/L (23-300); Potassium 5.1 mmol/L (3.4-5.0); Sodium 136 mmol/L (137-145)
== END 2020-02-15 11:05 | disposition home or self-care (01) ==
PROVIDERS: PCP Internal Medicine; Visit Provider Internal Medicine
DX: R10.11 Right upper quadrant pain (principal); K44.9 Diaphragmatic hernia without obstruction or gangrene
CPT/HCPCS: 36415; 74176; 80053; 82150; 83690; 85025

== ENCOUNTER 2020-10-03 16:52 | Outpatient (CLI) | payer MEDICARE, MEDICAID, SELFPAY ==
--- NOTE | ~2020-10-03 | XR_ITS ---
EXAMINATION: XR chest 2V DATE: 10/03/2020 17:27 INDICATION: Chest pain. Shortness of breath. TECHNIQUE: Frontal and lateral views of the chest were obtained. COMPARISON: Chest single view 08/08/2019, CT abdomen and pelvis 02/15/2020 FINDINGS: There are airspace and interstitial opacities throughout the lungs bilaterally. No pleural effusion or pneumothorax. The heart size is normal. Surgical clips in the right upper quadrant are li wyatt from cholecystectomy. IMPRESSION: 1. Diffuse lung disease with mild interval improvement, consistent with pneumonia versus pulmonary ed brock versus chronic lung disease. Reviewed, dictated and finalized at location A. IMPRESSION: 1. Diffuse lung disease with mild interval improvement, consistent with pneumon ia versus pulmonary edema versus chronic lung disease.
== END 2020-10-03 16:53 | disposition home or self-care (01) ==
PROVIDERS: PCP Internal Medicine; Visit Provider Nurse Practitioner Family
DX: R07.9 Chest pain, unspecified (principal); R91.8 Other nonspecific abnormal finding of lung field
CPT/HCPCS: 71046

== ENCOUNTER → 2020-10-04 08:48 | Outpatient (CLI) | payer MEDICARE, MEDICAID, SELFPAY ==
[2020-10-04 23:00] LABS: SARS-CoV-2 RNA PCR Negative
== END ==
PROVIDERS: PCP Internal Medicine; Visit Provider Nurse Practitioner Family
DX: Z20.822 Contact with and (suspected) exposure to COVID-19 (principal); R06.09 Other forms of dyspnea
CPT/HCPCS: C9803; U0003; U0005

== ENCOUNTER 2021-01-16 10:27 | Outpatient (CLI) | payer MEDICARE, MEDICAID, SELFPAY ==
--- NOTE | ~2021-01-16 | MR_ITS ---
EXAMINATION: MR lumbar spine wo con DATE: 01/16/2021 11:32 INDICATION: Low back pain. TECHNIQUE: Magnetic resonance imaging (MRI) of the lumbar spine was performed without intravenous con trast. Sequences included sagittal T2-weighted FSE, sagittal T2-weighted FS FSE, sagittal T1-weighted FSE, and axial T2-weighted FSE. COMPARISON: None FINDINGS: There is 12 degrees levoscoliosis of lumbar spine. There is 7 mm anterolisthesis of L4 on L 5. There is mild chronic height loss of T10, T11, and T12 vertebral bodies. There is mildly decreased disc height at T10-T11, moderately decreased disc height at T11-T12, mildly decreased disc height at T12-L1 and L3-L4, moderately decreased disc height at L4-L5, and severely decreased disc at L5-S1. T he distal spinal cord signal intensity is normal. The conus medullaris is at L1. The following disc l evels are specifically discussed: L1-L2: The disc does not extend beyond the endplate margin. There is mild bilateral facet joint osteo arthritis. There is no neural foraminal stenosis. There is no central canal stenosis. L2-L3: The disc does not extend beyond the endplate margin. There is mild bilateral facet joint osteo arthritis. There is no neural foraminal stenosis. There is no central canal stenosis. L3-L4: The disc is bulging. There is severe right and mild left facet joint osteoarthritis. There is mild bilateral neural foraminal stenosis. There is mild central canal stenosis. L4-L5: The disc is bulging and has an annular fissure. There is severe bilateral facet joint osteoart hritis. There is moderate right and mild left neural foraminal stenosis. There is mild central canal stenosis. There is moderate stenosis of right lateral recess. L5-S1: The disc is bulging as an annular fissure. There is moderate right and severe left facet joint osteoarthritis. There is mild bilateral neural foraminal stenosis. There is mild central canal steno sis. IMPRESSION: 1. Severe lumbar spondylosis. 2. Lumbar levoscoliosis. Reviewed, dictated and finalized at location A.
== END 2021-01-16 10:28 | disposition home or self-care (01) ==
LOC: ANHIMG 10:35
PROVIDERS: PCP Nurse Practitioner Family; Visit Provider Orthopaedic Surgery
DX: M47.896 Other spondylosis, lumbar region (principal)
CPT/HCPCS: 72148

== ENCOUNTER 2021-03-28 11:19 | Emergency (ER) | payer MEDICARE, MEDICAID, SELFPAY ==
--- NOTE | ~2021-03-28 | XR_ITS ---
EXAMINATION: XR foot LT min 3V DATE: 03/28/2021 12:05 INDICATION: Left foot swelling. TECHNIQUE: 4 views of left foot were obtained. COMPARISON: Left foot radiographs 05/19/2018 FINDINGS: There is moderate hallux valgus. No fracture. There is mild osteoarthritis of first metatar sophalangeal joint and some of the interphalangeal joints. There are enthesophytes at the posterior a nd plantar aspects of calcaneal tuberosity. IMPRESSION: 1. Mild polyarticular osteoarthritis. 2. Moderate hallux valgus. Reviewed, dictated and finalized at location A.
--- NOTE | 2021-03-28 11:23 | ED.EXTPRO ---
HPI - Extremity Problem General Chief complaint: Extremity Injury, Lower Stated complaint: ledt foot swollen/pain Time Seen by Provider: 03/28/21 11:47 Source: patient and RN notes reviewed Mode of arrival: ambulatory Limitations: no limitations History of Present Illness HPI Narrative: 60-year-old female with history of acute renal failure, pulmonary edema, hypertension, presents with concern for left foot pain, swelling. She denies any distinct injury, reports on Friday she felt a mild twisting of the ankle and on Friday began having pain and swelling of the left foot and ankle. She reports she has been walking on the ankle and pain has been getting worse. Reports today she is unable to bear weight on the ankle. She denies any redness, warmth, open skin, laceration, abrasion, fever, body aches, chills. Reports she has been taking Tylenol for pain. Patient reports 3 month hospitalization in july of 2019 for which she was in a coma, she reports she had similar foot and ankle pain during rehab after her coma. MD Complaint: extremity pain and extremity swelling Related Data Home Medications Medication Instructions Recorded Confirmed ezetimibe 10 mg PO DAILY 06/05/19 07/26/19 furosemide 20 mg PO DAILY PRN 06/05/19 07/26/19 acetaminophen 1,000 mg PO QID PRN 07/26/19 07/26/19 albuterol sulfate [ProAir HFA] 2 puff INHALATION Q4H PRN 07/26/19 07/26/19 aspirin 81 mg PO DAILY 07/26/19 07/26/19 loratadine 10 mg PO DAILY 07/26/19 07/26/19 ferrous sulfate mg 03/28/21 Allergies Allergy/AdvReac Type Severity Reaction Status Date / Time Iodinated Contrast Media Allergy Severe Swelling Verified 07/30/19 10:20 lorazepam Allergy Intermediate HALLUCINATE Verified 05/28/19 10:29 hydrocodone Allergy Mild ROOF OF Verified 05/28/19 10:29 MOUTH WENT NUMB phenytoin Allergy Unknown Unknown Verified 05/28/19 10:29 topiramate Allergy Unknown Unknown Verified 07/26/19 02:03 codeine AdvReac Mild NAUSEA AND Verified 03/28/21 11:48 VOMITING Penicillins AdvReac Mild NAUSEA AND Verified 03/28/21 11:48 VOMITING azithromycin AdvReac Unknown Unknown Verified 03/28/21 11:48 Review of Systems Review of Systems: CONSTITUTIONAL: Denies malaise, chills, sweats, or fever. CARDIOVASCULAR: Denies chest pain, palpitations RESPIRATORY: Denies cough or dyspnea. SKIN: Denies lacerations, abrasions, warmth, rash, redness MUSCULOSKELETAL: Reports left foot pain, swelling NEUROLOGIC: Denies numbness, weakness All systems reviewed & are unremarkable except as noted in HPI and below PMFSH Past Medical History Medical History (Updated 03/28/21 @ 12:21 by Lynsey Bergman NP) Asthma Cirrhosis of liver CVA (cerebral vascular accident) Elevated cholesterol Hypertension Kidney disease, chronic, stage IV (GFR 15-29 ml/min) Secondary hyperparathyroidism of renal origin Seizures Family History Family History Mother Hypertension Asthma COPD (chronic obstructive pulmonary disease) Father Family history of malignant neoplasm of brain Social History Social History Smoking packs per day: 1 Smoking cigarettes per day: 20.0 Years smoked: 10 Smoking pack-years: 10.00 Smoking status: Former smoker Tobacco type: cigarettes Smoking end date: 07/07/08 Alcohol intake: never Substance use: never Gender identity (if verbalized by the patient): Female Spiritual care concerns: No Agree to blood products: Yes Comments At time of signature, agree with nursing past medical, surgical, social and family history. There is no relevant family history pertinent to the presenting complaint Exam Narrative: GENERAL: Well-appearing, well-nourished, and in no acute distress. HEAD: Normocephalic, atraumatic. EYES: PERRLA, conjunctivae clear NECK: Supple. CHEST: Speaks in full sentences. No respiratory distress. HEART: Regular
[2021-03-28 11:32] VITALS: BP 105/70; PULSE 70; RESP 18; TEMP 36.7; O2SAT 100
== END 2021-03-28 12:30 | disposition home or self-care (01) ==
PROVIDERS: Emergency Provider Nurse Practitioner; PCP Nurse Practitioner Family
DX: M20.12 Hallux valgus (acquired), left foot (principal); M79.672 Pain in left foot; Z87.891 Personal history of nicotine dependence; J45.909 Unspecified asthma, uncomplicated; E78.00 Pure hypercholesterolemia, unspecified; I12.0 Hypertensive chronic kidney disease with stage 5 chronic kidney disease or end stage renal disease; N18.5 Chronic kidney disease, stage 5; Z86.73 Personal history of transient ischemic attack (TIA), and cerebral infarction without residual deficits; N25.81 Secondary hyperparathyroidism of renal origin; Z79.82 Long term (current) use of aspirin
CPT/HCPCS: 73630; 99213; G0463

== ENCOUNTER 2021-07-01 13:13 | Emergency (ER) | payer BC, SELFPAY ==
[2021-07-01 13:24] VITALS: BP 141/81; PULSE 140; RESP 18; TEMP 36.6; O2SAT 100
--- NOTE | 2021-07-01 13:29 | ED.EYEPROB ---
HPI - Eye Problem General Chief complaint: Eye Problems Stated complaint: Eye injury Time Seen by Provider: 07/01/21 13:29 Source: patient Mode of arrival: ambulatory Limitations: no limitations History of Present Illness HPI Narrative: Leatha is a 61-year-old female patient ambulated into the [facility] with right eye injury. Patient states she was in the shower and hit herself in the eye with a conditioner bottle. Patient states this happened this morning. And the pain is increased throughout the day MD chief complaint: eye pain and eye injury Related Data Home Medications Medication Instructions Recorded Confirmed ezetimibe 10 mg PO DAILY 06/05/19 07/01/21 furosemide 20 mg PO DAILY PRN 06/05/19 07/26/19 acetaminophen 1,000 mg PO QID PRN 07/26/19 07/01/21 albuterol sulfate [ProAir HFA] 2 puff INHALATION Q4H PRN 07/26/19 07/01/21 aspirin 81 mg PO DAILY 07/26/19 07/01/21 loratadine 10 mg PO DAILY 07/26/19 07/26/19 ferrous sulfate 325 mg PO DAILY 03/28/21 07/01/21 allopurinol 100 mg PO DAILY 07/01/21 07/01/21 Allergies Allergy/AdvReac Type Severity Reaction Status Date / Time Iodinated Contrast Media Allergy Severe Swelling Verified 07/01/21 13:51 lorazepam Allergy Intermediate HALLUCINATE Verified 07/01/21 13:51 hydrocodone Allergy Mild ROOF OF Verified 07/01/21 13:51 MOUTH WENT NUMB phenytoin Allergy Unknown Unknown Verified 07/01/21 13:51 topiramate Allergy Unknown Unknown Verified 07/01/21 13:51 codeine AdvReac Mild NAUSEA AND Verified 07/01/21 13:51 VOMITING Penicillins AdvReac Mild NAUSEA AND Verified 07/01/21 13:51 VOMITING azithromycin AdvReac Unknown Unknown Verified 07/01/21 13:51 Review of Systems Review of Systems: CONSTITUTIONAL: Denies body aches, fever, chills, or sweats. EYES: Denies visual changes, +redness, denies discharge. ENT: Denies rhinorrhea, congestion, sore throat, or otalgia. CARDIOVASCULAR: Denies chest pain, palpitations, or edema. RESPIRATORY: Denies cough or dyspnea. GASTROINTESTINAL: Denies abdominal pain, nausea, vomiting, or diarrhea. GENITOURINARY: Denies dysuria or hematuria. SKIN: Denies rash, itching, or wounds. MUSCULOSKELETAL: Denies back pain, joint pain, or myalgia. NEUROLOGIC: Denies headache, numbness, tingling, or weakness. PSYCH: Denies depression or anxiety. All systems reviewed & are unremarkable except as noted in HPI and below PMFSH Past Medical History Medical History Asthma Cirrhosis of liver CVA (cerebral vascular accident) Elevated cholesterol Hypertension Kidney disease, chronic, stage IV (GFR 15-29 ml/min) Secondary hyperparathyroidism of renal origin Seizures Family History Family History Mother Hypertension Asthma COPD (chronic obstructive pulmonary disease) Father Family history of malignant neoplasm of brain Social History Social History Smoking packs per day: 1 Smoking cigarettes per day: 20.0 Years smoked: 10 Smoking pack-years: 10.00 Smoking status: Former smoker Tobacco type: cigarettes Smoking end date: 07/07/08 Alcohol intake: never Substance use: never Gender identity (if verbalized by the patient): Female Spiritual care concerns: No Agree to blood products: Yes Comments At time of signature, I have reviewed and agree with nursing past medical, surgical, social and family history unless otherwise noted. Please see nursing chart for further information. There is no relevant family history pertinent to the presenting complaint Exam Narrative: GENERAL: Well-appearing, well-nourished, and in no acute distress. HEAD: Normocephalic, atraumatic. EYES: EOMI. No drainage. Conjunctivae normal. Mild erythema noted to the right eye ENT: Mucous membranes pink and moist. Nares clear. No rhinorrhea. TMs normal bilaterally. Thr
== END 2021-07-01 13:58 | disposition home or self-care (01) ==
PROVIDERS: Emergency Provider Nurse Practitioner Family
DX: S05.01XA Injury of conjunctiva and corneal abrasion without foreign body, right eye, initial encounter (principal); W22.8XXA Striking against or struck by other objects, initial encounter; Z87.891 Personal history of nicotine dependence; J45.909 Unspecified asthma, uncomplicated; K74.60 Unspecified cirrhosis of liver; Z86.73 Personal history of transient ischemic attack (TIA), and cerebral infarction without residual deficits; E78.00 Pure hypercholesterolemia, unspecified; I13.2 Hypertensive heart and chronic kidney disease with heart failure and with stage 5 chronic kidney disease, or end stage renal disease; N18.5 Chronic kidney disease, stage 5; I50.9 Heart failure, unspecified
CPT/HCPCS: 99213; A9270; G0463

== ENCOUNTER 2022-06-04 10:42 | Emergency (ER) | payer MEDICARE, MEDICAID, SELFPAY ==
[2022-06-04 10:45] VITALS: BP 122/80; PULSE 77; RESP 16; TEMP 36.3; O2SAT 100
--- NOTE | 2022-06-04 11:23 | ED.URI ---
HPI - URI/Sore Throat General Chief Complaint: Upper Respiratory Infection Stated Complaint: uri Time Seen by Provider: 06/04/22 11:24 Source: patient and RN notes reviewed Mode of arrival: ambulatory Limitations: no limitations History of Present Illness HPI Narrative: 62-year-old female presenting for complaint of sinus pressure and congestion worsening over the last 2 weeks. She states the left upper cheek is painful, she has pressure behind both eyes, and sinus congestion. She has not taken anything for symptoms. She endorses multiple medication allergies. Denies shortness of breath, cough, wheezing, nausea, vomiting, diarrhea, fevers or chills. MD elicited complaint: cough Related Data Home Medications Medication Instructions Recorded Confirmed ezetimibe 10 mg tablet 10 mg PO DAILY 06/05/19 06/04/22 furosemide 20 mg tablet 20 mg PO DAILY PRN edema 06/05/19 06/04/22 acetaminophen 500 mg tablet 1,000 mg PO QID PRN Mild Pain 07/26/19 06/04/22 (Scale Score 1-4) albuterol sulfate 90 mcg/actuation 2 puff inhalation Q4H PRN Wheezing 07/26/19 06/04/22 aerosol inhaler (ProAir HFA) aspirin 81 mg chewable tablet 81 mg PO DAILY 07/26/19 06/04/22 loratadine 10 mg tablet 10 mg PO DAILY 07/26/19 06/04/22 ferrous sulfate 325 mg (65 mg 325 mg PO DAILY 03/28/21 06/04/22 iron) tablet allopurinol 100 mg tablet 100 mg PO DAILY 07/01/21 06/04/22 Allergies Allergy/AdvReac Type Severity Reaction Status Date / Time Iodinated Contrast Media Allergy Severe Swelling Verified 06/04/22 10:52 lorazepam Allergy Intermediate HALLUCINATE Verified 06/04/22 10:52 hydrocodone Allergy Mild ROOF OF Verified 06/04/22 10:52 MOUTH WENT NUMB phenytoin Allergy Unknown Unknown Verified 06/04/22 10:52 topiramate Allergy Unknown Unknown Verified 06/04/22 10:52 codeine AdvReac Mild NAUSEA AND Verified 06/04/22 10:52 VOMITING Penicillins AdvReac Mild NAUSEA AND Verified 06/04/22 10:52 VOMITING azithromycin AdvReac Unknown Unknown Verified 06/04/22 10:52 Review of Systems Review of Systems: ROS per HPI [facility] Past Medical History Medical History Asthma Cirrhosis of liver CVA (cerebral vascular accident) Elevated cholesterol Hypertension Kidney disease, chronic, stage IV (GFR 15-29 ml/min) Secondary hyperparathyroidism of renal origin Seizures Family History Family History Mother Hypertension Asthma COPD (chronic obstructive pulmonary disease) Father Family history of malignant neoplasm of brain Social History Social History Smoking packs per day: 1 Smoking cigarettes per day: 20.0 Years smoked: 10 Smoking pack-years: 10.00 Smoking status: Former smoker Tobacco type: cigarettes Smoking end date: 07/07/08 Alcohol intake: never Substance use: never Gender identity (if verbalized by the patient): Female Spiritual care concerns: No Agree to blood products: Yes Exam Narrative: GENERAL: Ill-appearing, nontoxic EYES: PERRLA, conjunctivae clear ENT: Mucous membranes moist. Nasal congestion. Left maxillary tenderness with palpation. TMs pearly quintanilla with dull light reflex bilaterally; no tragal tenderness. Oropharynx erythematous without lesions or exudate, no drooling, no hoarseness, no trismus, uvula midline. CHEST: Clear to auscultation, breath sounds equal. No wheezing, rhonchi, rales, or stridor. No respiratory distress, speaks in full sentences. HEART: Regular rate and rhythm. No murmur heard. SKIN: Warm, dry, no rash. NEURO: Alert and oriented x3. PSYCH: Normal mood and affect Course Course Emergency Course: Patient is aware of diagnosis, understands and agrees to treatment plan. Anticipatory guidance given. Patient agrees to follow-up as directed and is aware of reasons to seek care at the emergency departm
== END 2022-06-04 11:47 | disposition home or self-care (01) ==
PROVIDERS: Emergency Provider Nurse Practitioner Family; PCP Nurse Practitioner Family
DX: J06.9 Acute upper respiratory infection, unspecified (principal); K74.60 Unspecified cirrhosis of liver; I12.9 Hypertensive chronic kidney disease with stage 1 through stage 4 chronic kidney disease, or unspecified chronic kidney disease; N18.4 Chronic kidney disease, stage 4 (severe); Z79.82 Long term (current) use of aspirin; Z87.891 Personal history of nicotine dependence
CPT/HCPCS: 99213; G0463

== ENCOUNTER 2022-06-18 15:10 | Emergency (ER) | payer BC, SELFPAY ==
--- NOTE | 2022-06-18 15:30 | ED.URI ---
HPI - URI/Sore Throat General Chief Complaint: Upper Respiratory Infection Stated Complaint: uri Time Seen by Provider: 06/18/22 15:30 Source: patient, RN notes reviewed and old records reviewed Mode of arrival: ambulatory Limitations: no limitations History of Present Illness HPI Narrative: 62-year-old female presents to the [facility] with complaints of a really bad sinus infection. . Patient reports sinus drainage and sore throat. Denies fevers. Was seen on June 04 and prescribed Bactrim because she cannot take any other medication due to allergies or her kidney disease. Patient states that she took the Bactrim got a little better but needs more to get all the way better. No other treatment. states that she will not use Flonase because it dries out her sinuses. Had not followed up with primary care provider, tried calling today but cannot get an appointment Related Data Home Medications Medication Instructions Recorded Confirmed ezetimibe 10 mg tablet 10 mg PO DAILY 06/05/19 06/18/22 furosemide 20 mg tablet 20 mg PO DAILY PRN edema 06/05/19 06/18/22 acetaminophen 500 mg tablet 1,000 mg PO QID PRN Mild Pain 07/26/19 06/18/22 (Scale Score 1-4) albuterol sulfate 90 mcg/actuation 2 puff inhalation Q4H PRN Wheezing 07/26/19 06/18/22 aerosol inhaler (ProAir HFA) aspirin 81 mg chewable tablet 81 mg PO DAILY 07/26/19 06/18/22 ferrous sulfate 325 mg (65 mg 325 mg PO DAILY 03/28/21 06/18/22 iron) tablet allopurinol 100 mg tablet 100 mg PO DAILY 07/01/21 06/18/22 fluticasone propionate 50 1 spray intranasal DAILY 06/18/22 06/18/22 mcg/actuation nasal spray,suspension valacyclovir 1 gram tablet 1,000 mg PO DAILY 06/18/22 06/18/22 Allergies Allergy/AdvReac Type Severity Reaction Status Date / Time Iodinated Contrast Media Allergy Severe Swelling Verified 06/18/22 15:25 lorazepam Allergy Intermediate HALLUCINATE Verified 06/18/22 15:25 hydrocodone Allergy Mild ROOF OF Verified 06/18/22 15:25 MOUTH WENT NUMB phenytoin Allergy Unknown Unknown Verified 06/18/22 15:25 topiramate Allergy Unknown Unknown Verified 06/18/22 15:25 codeine AdvReac Mild NAUSEA AND Verified 06/18/22 15:25 VOMITING Penicillins AdvReac Mild NAUSEA AND Verified 06/18/22 15:25 VOMITING azithromycin AdvReac Unknown Unknown Verified 06/18/22 15:25 Review of Systems Review of Systems: All systems reviewed & are unremarkable except as noted in HPI and below Constitutional: Constitutional: Reports no additional constitutional complaints Eyes: Eyes: Reports no additional eye complaints ENT: Reports as per HPI Cardiovascular: Cardiovascular: Reports no additional cardiovascular complaints, Denies chest pain and Denies dyspnea Respiratory: Respiratory: Reports no additional respiratory complaints, Denies chest congestion, Denies cough and Denies dyspnea Gastrointestinal: Gastrointestinal: Reports no additional gastrointestinal complaints, Denies abdominal pain, Denies nausea and Denies vomiting Musculoskeletal: Musculoskeletal: Reports no additional musculoskeletal complaints Integumentary/Breasts: Skin/Breast: Reports system reviewed and no additional complaints, except as docu Neurologic: Reports system reviewed and no additional complaints, except as documented Psychiatric: Psychiatric: Reports no additional psychiatric complaints Allergic/Immunologic: Allergic/Immunologic: Reports no additional allergic/immunologic complaints [facility] Past Medical History Medical History Asthma Cirrhosis of liver CVA (cerebral vascular accident) Elevated cholesterol Hypertension Kidney disease, chronic, stage IV (GFR 15-29 ml/min) Secondary hyperparathyroidism of renal origin Seizures Family History Family History Mother Hypertension Asthma COPD (chronic obstructive pulmonary disease) Father Family hi
[2022-06-18 15:32] VITALS: BP 137/78; PULSE 86; RESP 16; TEMP 36.9; O2SAT 99
== END 2022-06-18 15:58 | disposition home or self-care (01) ==
PROVIDERS: Emergency Provider Nurse Practitioner; PCP Nurse Practitioner Family
DX: J06.9 Acute upper respiratory infection, unspecified (principal); R09.82 Postnasal drip; Z87.891 Personal history of nicotine dependence; J45.909 Unspecified asthma, uncomplicated; I12.0 Hypertensive chronic kidney disease with stage 5 chronic kidney disease or end stage renal disease; N18.5 Chronic kidney disease, stage 5; K74.60 Unspecified cirrhosis of liver; E78.00 Pure hypercholesterolemia, unspecified; N25.81 Secondary hyperparathyroidism of renal origin; Z79.82 Long term (current) use of aspirin
CPT/HCPCS: 99213; G0463

== ENCOUNTER 2022-10-21 10:12 | Outpatient (CLI) | payer MEDICARE, MEDICAID, SELFPAY ==
[2022-10-21 11:03] LABS: Hematocrit 43.1 % (37.0-47.0); Hemoglobin 14.3 g/dL (12.0-15.0); Mean Corpuscular HGB Conc 33.2 g/dl (32-36); Mean Corpuscular Hemoglobin 32.6 pg (26-34); Mean Corpuscular Volume 98.4 fl (80-100); Mean Platelet Volume 9.2 fl (7.4-10.4); Platelet Count Result 165 k/mm3 (150-375); Red Blood Count 4.38 M/mm3 (4.2-5.4); Red Cell Distribution Width 13.5 % (11.5-14.5); White Blood Count 7.1 K/mm3 (4.5-10.0)
[2022-10-21 11:44] LABS: Iron 69 ug/dL (37-170)
[2022-10-21 11:54] LABS: Percent Iron Saturation 23 % (20-50)
[2022-10-25 16:27] LABS: Endomysial Ab (IgA) Screen Negative (Negative)
== END 2022-10-21 10:13 | disposition home or self-care (01) ==
PROVIDERS: PCP Nurse Practitioner Family; Visit Provider Internal Medicine Gastroenterology
DX: D50.9 Iron deficiency anemia, unspecified (principal)
CPT/HCPCS: 36415; 82728; 83540; 83550; 85027; 86255

== ENCOUNTER 2022-11-29 17:42 | Emergency (ER) | payer OTHER, MEDICARE, MEDICAID, SELFPAY ==
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
[2022-11-29 17:56] VITALS: BP 137/77; PULSE 79; RESP 12; TEMP 37; O2SAT 100
[2022-11-29 17:58] VITALS: BP 137/77; PULSE 79; RESP 12; TEMP 37; O2SAT 100
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
== END 2022-11-29 19:18 | disposition home or self-care (01) ==
PROVIDERS: Emergency Provider Nurse Practitioner Family
DX: M54.2 Cervicalgia (principal); R51.9 Headache, unspecified; V49.40XA Driver injured in collision with unspecified motor vehicles in traffic accident, initial encounter; Z87.891 Personal history of nicotine dependence; J45.909 Unspecified asthma, uncomplicated; I12.0 Hypertensive chronic kidney disease with stage 5 chronic kidney disease or end stage renal disease; N18.5 Chronic kidney disease, stage 5; K74.60 Unspecified cirrhosis of liver; Z86.73 Personal history of transient ischemic attack (TIA), and cerebral infarction without residual deficits; E78.00 Pure hypercholesterolemia, unspecified; I10 Essential (primary) hypertension; Z79.82 Long term (current) use of aspirin
CPT/HCPCS: 72050; 99213; G0463

== ENCOUNTER 2022-12-01 10:24 | Emergency (ER) | payer OTHER, MEDICARE, MEDICAID, SELFPAY ==
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
[2022-12-01 10:31] VITALS: BP 144/90; PULSE 88; RESP 16; TEMP 37; O2SAT 99
[2022-12-01 11:06] VITALS: BP 140/89; PULSE 82; RESP 18; O2SAT 99
[2022-12-01] MEDS: ACETAMINOPHEN 500 MG TABLET 1000 MG PO (12:08)
[2022-12-01 12:12] VITALS: BP 130/75; PULSE 83; RESP 18; O2SAT 100
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
[2022-12-01] MEDS: ONDANSETRON HCL ODT 4 MG TABLET PO (13:03)
[2022-12-01 14:13] VITALS: BP 132/84; PULSE 77; RESP 18; O2SAT 99
== END 2022-12-01 14:15 | disposition home or self-care (01) ==
PROVIDERS: Emergency Provider Physician Assistant; PCP Nurse Practitioner Family
DX: S16.1XXA Strain of muscle, fascia and tendon at neck level, initial encounter (principal); S80.01XA Contusion of right knee, initial encounter; S09.90XA Unspecified injury of head, initial encounter; V49.40XA Driver injured in collision with unspecified motor vehicles in traffic accident, initial encounter; J45.909 Unspecified asthma, uncomplicated; K74.60 Unspecified cirrhosis of liver; I12.9 Hypertensive chronic kidney disease with stage 1 through stage 4 chronic kidney disease, or unspecified chronic kidney disease; N18.4 Chronic kidney disease, stage 4 (severe); E78.00 Pure hypercholesterolemia, unspecified; N25.81 Secondary hyperparathyroidism of renal origin; Z87.891 Personal history of nicotine dependence; Z79.51 Long term (current) use of inhaled steroids
CPT/HCPCS: 70450; 72125; 73564; 99284; A9270

== ENCOUNTER 2022-12-24 09:45 | Outpatient (CLI) | payer MEDICARE, SELFPAY ==
[2022-12-24 10:31] LABS: Appearance Urine Clear (Clear); Bilirubin Urine Negative (Negative); Blood Urine Negative (Negative); Color Urine Yellow (Yellow); Glucose Urine UA Negative (Negative); Ketones Urine Negative (Negative); Leukocyte Esterase Ur Negative LEU/UL (Negative); Nitrate Urine Negative (Negative); Protein Urine Negative (Negative); Specific Grav Ur 1.009 (1.001-1.035); Urobilinogen Urine 0.2 mg/dL (<2.0)
[2022-12-24 10:36] LABS: Add Urine Microscopic? NO
[2022-12-24 10:37] LABS: Anion Gap 6 mmol/L (8-16); Blood Urea Nitrogen 37 mg/dL (7-17); Calcium 8.9 mg/dL (8.4-10.2); Carbon Dioxide 36 mmol/L (22-30); Chloride 96 mmol/L (98-107); Estimated Glomerular Filt Rate 32; Glucose 105 mg/dL (65-110); Potassium 3.9 mmol/L (3.4-5.0); Sodium 138 mmol/L (137-145)
== END 2022-12-24 09:46 | disposition home or self-care (01) ==
PROVIDERS: PCP Nurse Practitioner Family; Visit Provider Internal Medicine Nephrology
DX: I12.9 Hypertensive chronic kidney disease with stage 1 through stage 4 chronic kidney disease, or unspecified chronic kidney disease (principal); N18.30 Chronic kidney disease, stage 3 unspecified; N39.0 Urinary tract infection, site not specified
CPT/HCPCS: 36415; 80048; 81003

== ENCOUNTER 2023-01-16 15:22 | Outpatient (CLI) | payer MEDICARE, SELFPAY ==
[2023-01-16 16:52] LABS: Anion Gap 5 mmol/L (8-16); Blood Urea Nitrogen 31 mg/dL (7-17); Calcium 9.1 mg/dL (8.4-10.2); Carbon Dioxide 29 mmol/L (22-30); Chloride 104 mmol/L (98-107); Estimated Glomerular Filt Rate 45; Glucose 99 mg/dL (65-110); Potassium 4.7 mmol/L (3.4-5.0); Sodium 138 mmol/L (137-145)
== END 2023-01-16 15:23 | disposition home or self-care (01) ==
LOC: ANHLAB 15:24
PROVIDERS: PCP Nurse Practitioner Family; Visit Provider Internal Medicine Nephrology
DX: N18.32 Chronic kidney disease, stage 3b (principal)
CPT/HCPCS: 36415; 80048

== ENCOUNTER 2023-02-05 13:21 | Outpatient (CLI) | payer MEDICARE, SELFPAY ==
[2023-02-05 14:17] LABS: Alanine Aminotransferase 22 U/L (6-35); Albumin Level 4.2 g/dL (3.5-5.1); Alkaline Phosphatase 112 U/L (38-126); Aspartate Amino Transferase 30 U/L (14-36); Bilirubin,Total 0.3 mg/dL (0.2-1.3)
[2023-02-05 14:54] LABS: Appearance Urine Clear (Clear); Bacteria Urine None Seen /hpf; Bilirubin Urine Negative (Negative); Blood Urine Negative (Negative); Color Urine Yellow (Yellow); Glucose Urine UA Negative (Negative); Ketones Urine Negative (Negative); Leukocyte Esterase Ur 2+ LEU/UL (NEGATIVE); Nitrate Urine Negative (Negative); Non Pathogenic Casts 0-2; Protein Urine Negative (Negative); RBC Urine 0-2 /hpf (0-2); Specific Grav Ur 1.009 (1.001-1.035); Squamous Epithelial Cell Urine None seen /hpf (Few); Urobilinogen Urine 0.2 mg/dL (<2.0); pH Urine 5.5 (5.0-9.0)
[2023-02-05 15:02] LABS: Add Urine Microscopic? YES
== END 2023-02-05 13:22 | disposition home or self-care (01) ==
PROVIDERS: PCP Nurse Practitioner Family; Referring Provider Internal Medicine Gastroenterology; Visit Provider Internal Medicine Nephrology
DX: N18.32 Chronic kidney disease, stage 3b (principal); N39.0 Urinary tract infection, site not specified; R74.01 Elevation of levels of liver transaminase levels
CPT/HCPCS: 36415; 80076; 81001

== ENCOUNTER 2023-03-15 10:53 | Outpatient (CLI) | payer MEDICARE, MEDICAID, SELFPAY ==
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
== END 2023-03-15 10:54 | disposition home or self-care (01) ==
PROVIDERS: PCP Nurse Practitioner Family; Visit Provider Nurse Practitioner Family
DX: R51.9 Headache, unspecified (principal)
CPT/HCPCS: 70551

== ENCOUNTER 2023-05-03 10:46 | Outpatient (CLI) | payer MEDICARE, MEDICAID, SELFPAY ==
--- NOTE | ~2023-05-03 | MR_ITS ---
EXAMINATION: MR knee RT wo con DATE: 05/03/2023 11:35 INDICATION: Pain of right knee joint TECHNIQUE: Magnetic resonance imaging (MRI) of the right knee was performed without intravenous contr ast. Sequences included axial PD-weighted FS FSE, coronal PD-weighted FSE and PD-weighted FS FSE, sag ittal PD-weighted FSE, and sagittal T2-weighted FS FSE. COMPARISON: 06/24/2012; x-ray right knee 11/23/2022 FINDINGS: Medial compartment: Apical tear of the posterior horn. Medial meniscal extrusion. Moderate diffuse cartilage thinning and osteophytosis. Lateral compartment: Mild diffuse cartilage thinning and osteophytosis. Intact meniscus. Patellofemoral compartment: Severe diffuse cartilage loss. Moderate osteophytosis. Subchondral marrow edema/cysts. Retinacula int act. Ligaments and tendons: The ACL, PCL, MCL, and LCL are intact. Remaining flexor and extensor tendons are intact. Fluid: Small volume joint fluid. Mild synovitis in the suprapatellar recess. Moderate Cox's cyst. Osseous/other: No suspicious focal or diffuse marrow signal. IMPRESSION: Apical tear of the posterior horn, medial meniscus, with significant degenerative change in the menis cus and medial extrusion. Tricompartmental osteoarthritic arthritis, severe in the patellofemoral compartment and moderate in t he medial compartment. Moderate Cox's cyst. Small volume joint effusion with mild synovitis in the suprapatellar recess. Reviewed, dictated and finalized at location K. IMPRESSION: Apical tear of the posterior horn, medial meniscus, with significant degenerati ve change in the meniscus and medial extrusion. Tricompartmental osteoarthritic arthritis, severe in the patellofemoral compart ment and moderate in the medial compartment. Moderate Cox's cyst. Small volume joint effusion with mild synovitis in the suprapatellar recess.
== END 2023-05-03 10:47 | disposition home or self-care (01) ==
PROVIDERS: PCP Nurse Practitioner Family; Visit Provider Orthopaedic Surgery
DX: M71.21 Synovial cyst of popliteal space [Baker], right knee (principal); M25.461 Effusion, right knee; M17.11 Unilateral primary osteoarthritis, right knee; M65.9 Synovitis and tenosynovitis, unspecified; M23.221 Derangement of posterior horn of medial meniscus due to old tear or injury, right knee
CPT/HCPCS: 73721

== ENCOUNTER 2023-06-19 09:59 | Emergency (ER) | payer MEDICARE, MEDICAID, SELFPAY ==
--- NOTE | 2023-06-19 10:14 | ED.URI ---
HPI - URI/Sore Throat General Chief Complaint: Upper Respiratory Infection Stated Complaint: Sore Throat Time Seen by Provider: 06/19/23 10:14 Source: patient Mode of arrival: ambulatory Limitations: no limitations History of Present Illness HPI Narrative: Delphine is a 63-year-old female patient presenting to the clinic today with complaints of sore throat, headache, body aches, chills, coughing, and shortness of breath. She reports history of asthma. Denies any known fever. Symptoms have been going on for 3 days. MD elicited complaint: sore throat and nasal congestion Related Data Home Medications Medication Instructions Recorded Confirmed ezetimibe 10 mg tablet 10 mg PO DAILY 06/05/19 06/19/23 furosemide 20 mg tablet 20 mg PO DAILY PRN edema 06/05/19 06/19/23 acetaminophen 500 mg tablet 1,000 mg PO QID PRN Mild Pain 07/26/19 06/19/23 (Scale Score 1-4) albuterol sulfate 90 mcg/actuation 2 puff inhalation Q4H PRN Wheezing 07/26/19 06/19/23 aerosol inhaler (ProAir HFA) aspirin 81 mg chewable tablet 81 mg PO DAILY 07/26/19 06/19/23 ferrous sulfate 325 mg (65 mg 325 mg PO DAILY 03/28/21 06/19/23 iron) tablet allopurinol 100 mg tablet 100 mg PO DAILY 07/01/21 06/19/23 fluticasone propionate 50 1 spray intranasal DAILY 06/18/22 06/19/23 mcg/actuation nasal spray,suspension valacyclovir 1 gram tablet 1,000 mg PO DAILY 06/18/22 06/19/23 Allergies Allergy/AdvReac Type Severity Reaction Status Date / Time Iodinated Contrast Media Allergy Severe Swelling Verified 05/20/23 10:31 lorazepam Allergy Intermediate HALLUCINATE Verified 05/20/23 10:31 hydrocodone Allergy Mild ROOF OF Verified 05/20/23 10:31 MOUTH WENT NUMB phenytoin Allergy Unknown Unknown Verified 05/20/23 10:31 topiramate Allergy Unknown Unknown Verified 05/20/23 10:31 codeine AdvReac Mild NAUSEA AND Verified 05/20/23 10:31 VOMITING Penicillins AdvReac Mild NAUSEA AND Verified 05/20/23 10:31 VOMITING azithromycin AdvReac Unknown Unknown Verified 05/20/23 10:31 Review of Systems Review of Systems: Pertinent positives per HPI. Patient denies any fever, chills, rash, headache, visual changes, dizziness, cough, shortness of breath, chest pain, palpitations, nausea, vomiting, diarrhea, constipation, abdominal pain, or any urinary issues. [facility] Past Medical History Medical History Asthma Cirrhosis of liver CVA (cerebral vascular accident) Elevated cholesterol Hypertension Kidney disease, chronic, stage IV (GFR 15-29 ml/min) Secondary hyperparathyroidism of renal origin Seizures Family History Family History Mother Hypertension Asthma COPD (chronic obstructive pulmonary disease) Father Family history of malignant neoplasm of brain Social History Social History Smoking packs per day: 1 Smoking cigarettes per day: 20.0 Years smoked: 10 Smoking pack-years: 10.00 Smoking status: Former smoker Tobacco type: cigarettes Smoking end date: 07/07/08 Alcohol intake: never Substance use: never Gender identity (if verbalized by the patient): Female Spiritual care concerns: No Agree to blood products: Yes Comments At the time of my signature, I reviewed and agree with the nursing past medical, surgical, social, and family history. There is no relevant family history pertinent to the patient complaint. Exam Narrative: General: Well-developed, obese, in no apparent distress Head: Normocephalic, atraumatic Eyes: Pupils equally round and reactive to light bilaterally, EOM intact, sclera and conjunctive clear, no discharge, lids normal Ears: TMs intact and congested, ear canals clear, no drainage, grossly hearing normal. Nose: Nares patent, clear discharge, no inflammation, no sinus tenderness. Mouth: Oral pharynx without lesi
[2023-06-19 10:15] VITALS: BP 128/66; PULSE 83; RESP 18; TEMP 37.5; O2SAT 100
== END 2023-06-19 11:05 | disposition home or self-care (01) ==
PROVIDERS: Emergency Provider Nurse Practitioner Family; PCP Nurse Practitioner Family
DX: J40 Bronchitis, not specified as acute or chronic (principal); I12.9 Hypertensive chronic kidney disease with stage 1 through stage 4 chronic kidney disease, or unspecified chronic kidney disease; N18.4 Chronic kidney disease, stage 4 (severe); K74.60 Unspecified cirrhosis of liver; Z79.899 Other long term (current) drug therapy; Z79.82 Long term (current) use of aspirin; Z86.73 Personal history of transient ischemic attack (TIA), and cerebral infarction without residual deficits; Z87.891 Personal history of nicotine dependence; Z20.822 Contact with and (suspected) exposure to COVID-19
CPT/HCPCS: 87081; 87426; 87804; 87880; 99213; C9803; G0463

== ENCOUNTER 2023-06-25 11:12 | Outpatient (CLI) | payer MEDICARE, MEDICAID, SELFPAY ==
--- NOTE | ~2023-06-25 | US_ITS ---
EXAMINATION: US venous doppler LE RT DATE: 06/25/2023 12:32 INDICATION: Right lower limb swelling TECHNIQUE: Barlow scale images without and with compression and Doppler images of the right lower extre mity veins were obtained. COMPARISON: 08/04/2019 FINDINGS: The right common femoral vein, profunda femoral vein, femoral vein, popliteal vein, peronea l trunk, posterior tibial veins, and greater saphenous vein are patent. IMPRESSION: 1. Patent right lower extremity veins. No evidence of deep venous thrombosis. Reviewed, dictated and finalized at location B. T DRIVER
== END 2023-06-25 11:13 | disposition home or self-care (01) ==
PROVIDERS: PCP Nurse Practitioner Family; Visit Provider Physician Assistant Surgical
DX: R60.0 Localized edema (principal)
CPT/HCPCS: 93971

== ENCOUNTER 2023-07-17 11:07 | Outpatient (CLI) | payer MEDICARE, MEDICAID, SELFPAY ==
--- NOTE | ~2023-07-17 | US_ITS ---
EXAMINATION: US venous doppler LE RT DATE: 07/17/2023 12:05 INDICATION: Right lower limb localized swelling. TECHNIQUE: Grayscale ultrasound images without and with compression and Doppler ultrasound images of the right lower extremity veins were obtained. COMPARISON: Ultrasound 06/25/2023 FINDINGS: The visualized portions of right common femoral vein, profunda (deep) femoral vein, femoral vein, pop liteal vein, peroneal veins, posterior tibial veins, and greater saphenous vein outflow are patent. T here is a small Cox's cyst. IMPRESSION: 1. No deep venous thrombosis. 2. Small Cox's cyst. Reviewed, dictated and finalized at location A. MAN
== END 2023-07-17 11:08 | disposition home or self-care (01) ==
LOC: ANHIMG 11:10
PROVIDERS: PCP Nurse Practitioner Family; Visit Provider Physician Assistant Surgical
DX: R22.41 Localized swelling, mass and lump, right lower limb (principal); M71.21 Synovial cyst of popliteal space [Baker], right knee
CPT/HCPCS: 93971

== ENCOUNTER 2023-11-25 08:38 | Outpatient (CLI) | payer MEDICARE, MEDICAID, SELFPAY ==
--- NOTE | ~2023-11-25 | MM_ITS ---
EXAMINATION: MM diagnostic titi BI w ciaran HISTORY: Breast pain TECHNIQUE: Additional 3-D tomosynthesis images of the breasts were performed and synthetic 2-D images were generated. CAD analysis was submitted and interpreted. COMPARISON: 04/10/2017 BREAST PARENCHYMAL COMPOSITION: Not Dense: Breast are almost entirely fatty. FINDINGS: The breasts are stable. No new masses, calcifications or architectural distortion in either breast to suggest malignancy. IMPRESSION: 1. No evidence for malignancy in either breast. 2. Routine yearly screening mammogram and regular clinical breast examination are recommended. BI-RADS Category 1: Negative Reviewed, dictated and finalized at location A. IMPRESSION: 1. No evidence for malignancy in either breast. 2. Routine yearly screening mammogram and regular clinical breast examination a re recommended. BI-RADS Category 1: Negative
== END 2023-11-25 08:39 ==
LOC: MICIMG 08:41
PROVIDERS: PCP Student in an Organized Health Care Education/Training Program; Visit Provider Student in an Organized Health Care Education/Training Program
DX: N64.4 Mastodynia (principal)
CPT/HCPCS: 77062; 77066; G0279

== ENCOUNTER 2024-10-06 08:44 | Outpatient (CLI) | payer MEDICARE, MEDICAID, SELFPAY ==
--- NOTE | ~2024-10-06 | MR_ITS ---
MRI of the left wrist Technique: Coronal T1 weighted and proton density fat sat images, and axial and sagittal proton-densi ty and proton-density fat-sat images were acquired. Clinical History: Palpable lump Findings: Scapholunate ligament is intact, and there is no widening of the scapholunate interval. Sophia otriquetral ligament intact. TFCC appears intact. No perforation of the central articular disc. No fracture or suspicious bone marrow edema seen. There are minimal degenerative signal changes in th e scaphoid. No significant joint effusion. There is a 1.3 x 1.1 x 0.6 cm complex/septated ganglion cy st extending along the volar aspect of the distal radius, rising from the radial scaphoid articulatio n. Flexor and extensor tendons are intact. No soft tissue mass or fluid collection seen, and in particul ar, no mass lesion identified at the area of the marker at the distal, dorsal forearm. IMPRESSION: No significant abnormality seen at the area of the marker at the dorsal aspect of the distal forearm. 1.3 x 1.1 x 0.6 cm septated/complex ganglion cyst along the volar aspect of the distal radius, probab ly arising from the radioscaphoid articulation. Reviewed, dictated and finalized at location . IMPRESSION: No significant abnormality seen at the area of the marker at the dorsal aspect of the distal forearm. 1.3 x 1.1 x 0.6 cm septated/complex ganglion cyst along the volar aspect of the distal radius, probably arising from the radioscaphoid articulation.
--- OUTSIDE RECORDS SUMMARY | 2024-10-06 09:04 | XMS_ITS | Encounter Summary ---
Author Organization [facility] Address [address] [place] [address] Phone Care Team Providers Care Animal Care Provider Name Role Phone Leoncio Cline MD Primary Care Provider [phone] Reason for Visit * Reason Comments Med Refill Encounter Details Date Type Department Care Team (Late st Contact Info) Description 01/24/2022 Refill [facility] [address] [facility] [address] [place] [address] Marcos Solano MD [address] [address] Social History Tobacco Use Types Packs/Day Years Used Date Smoking Tobacco: Never Smokeless Tobacco: Never Alcohol Use Standard Drinks/Week Comments No 0 (1 standard drink = 0.6 oz pur e alcohol) AUDIT-C Answer Date Recorded Frequency of Alcohol Consumption Never 10/08/2018 Average Number of Drinks Not on file 019 Frequency of Binge Drinking Not on file 10/2018 Sex and Gender Information Value Date Recorded Sex Assigned at Not on file Gender Identity Not on file Sexual Orientation Not on file documented as of this encounter Plan of Treatment Upcoming Encounters Date Type Department Care Team (Late st Contact Info) Description 02/15/2025 11:40 AM CDT Office Visit [facility] [address] [facility], [address] [place] [address] Marcos Solano MD [address] [phone] documented as of this encounter Visit Diagnoses Not on filedocumented in this encounter Care Teams Animal Care Provider Relationship Specialty Start Date End Date Leoncio Cline MD PCP - General 10/23/22 documented as of this encounter
--- OUTSIDE RECORDS SUMMARY | 2024-10-06 09:04 | XMS_ITS | Encounter Summary ---
Author Organization [facility] Address [address] [place] [phone] Phone Care Team Providers Care Cattle Dealer Name Role Phone Leoncio Cline MD Primary Care Provider [phone] Reason for Visit * Reason Comments Med Refill Encounter Details Date Type Department Care Team (Late Contact Info) Description 09/12/2022 Refill [facility] [address] [facility] 1 [place] [address] Marcos Solano MD [address] [phone] Social History Tobacco Use Types Packs/Day Years [...] Encounters Date Type Department Care Team (Late Contact Info) Description 02/15/2025 11:40 AM CDT Office Visit [facility] [address] [facility] [address] [place] [address] Marcos Solano MD [address] [phone] documented as of this encounter Visit Diagnoses Not on filedocumented in this encounter Care Teams Cattle Dealer Relationship Specialty Start Date End Date Leoncio Cline MD PCP - General 10/23/22 documented as of this encounter
--- OUTSIDE RECORDS SUMMARY | 2024-10-06 09:04 | XMS_ITS | Encounter Summary ---
Author Organization [facility] Address [address] [place] [address] Phone Care Team Providers Care Unload Associate Name Role Phone Leoncio Cline MD Primary Care Provider [phone] Reason for Visit * Reason Comments Med Refill Encounter Details Date Type Department Care Team (Late st Contact Info) Description 01/29/2022 Refill [facility] [address] [facility] [address] [place] [address] Marcos Solano MD [address] [address] Social History Tobacco Use Types [...] Description 02/15/2025 11:40 AM CDT Office Visit [facility] [address] [facility], [address] [place] [address] Marcos Solano MD [address] [phone] documented as of this encounter Visit Diagnoses Not on filedocumented in this encounter Care Teams Unload Associate Relationship Specialty Start Date End Date Leoncio Cline MD PCP - General 10/23/22 documented as of this encounter
--- OUTSIDE RECORDS SUMMARY | 2024-10-06 09:04 | XMS_ITS | Encounter Summary ---
Author Organization [facility] Address [address] [place] [address] Phone Care Team Providers Care Public Transit Specialist Name Role Phone Leoncio Cline MD Primary Care Provider [phone] Reason for Visit * Reason Comments Med Refill Encounter Details Date Type Department Care Team (Late st Contact Info) Description 06/18/2022 Refill [facility] [address] [facility] [address] [place] [address] Marcos Solano MD [address] [address] Social History Tobacco Use Types [...] Description 02/15/2025 11:40 AM CDT Office Visit [facility] [address] [facility], [address] [place] [address] Marcos Solano MD [address] [phone] documented as of this encounter Visit Diagnoses Not on filedocumented in this encounter Care Teams Public Transit Specialist Relationship Specialty Start Date End Date Leoncio Cline MD PCP - General 10/23/22 documented as of this encounter
--- OUTSIDE RECORDS SUMMARY | 2024-10-06 09:05 | XMS_ITS | Encounter Summary ---
Author Organization [facility] Address [address] [place] [phone] Phone Care Team Providers Care B2B Outside Sales Representative Name Role Phone Leoncio Cline MD Primary Care Provider [phone] Reason for Visit * Reason Comments Med Refill Encounter Details Date Type Department Care Team (Late Contact Info) Description 08/17/2019 Refill [facility] [address] [facility] 1 [place] [address] Marcos Solano MD [address] [phone] Social History Tobacco Use Types Packs/Day Years [...] Description 02/15/2025 11:40 AM CDT Office Visit [facility] [address] [facility] [address] [place] [address] Marcos Solano MD [address] [phone] documented as of this encounter Visit Diagnoses Not on filedocumented in this encounter Care Teams B2B Outside Sales Representative Relationship Specialty Start Date End Date Leoncio Cline MD PCP - General 10/23/22 documented as of this encounter
--- OUTSIDE RECORDS SUMMARY | 2024-10-06 09:05 | XMS_ITS | Clinical Summary ---
Author Organization [facility] [address] [facility] Address [address] [place] [address] Care Team Providers Care Sow Farm Barn Technician Name Role Phone Lisa Butler Melissa HVAC/R SERVICE TECHNICIAN Primary Care Provider + Allergies Active Allergy Reactions Criticality Noted Date Comments Acetaminophen Codeine Doxycycline Other (See comments) Low 09/25/2023 Abdominal pain Hydrocodone Hydrocodone-Acetaminophen Iodinated Contrast Media Rash,Unknown Medium 4 Iodine Ioversol Naproxen Penicillins Nausea & Vomiting Low 12/09/2023 Medications aspirin (ASPIR-81) 81 mg tablet take 1 Tablet by oral route every day 0 0 5 Active albuterol HFA (PROAIR HFA) 90 mcg/actuation inhaler inhale 2 puff by inhalation route every 4 - 6 hours as needed 0 Inhaler 0 5 Active lisinopril-hydro CHLOROthiazide (PRINZIDE,ZESTOR ETIC) 10-12.5 mg per tablet take 1 tablet by oral route every day 0 0 5 Active Additional Information Patient taking differently: 10 tablet, 1/2 tab daily, Reported on 06/15/2024 furosemide (LASIX) 20 mg tablet take 1 tablet by oral route every day 0 3 Active baclofen (LIORESAL) 10 mg tablet TAKE 1/2 TABLET AT BEDTIME NEEDED 3 8 Active ezetimibe (ZETIA) 10 mg tablet 8 Active diazePAM (VALIUM) 5 mg tablet Take 1 tablet (5 mg total) by mouth as needed (for procedure) 2 tablet 9 Active clotrimazole 1 % creamIndications :Cutaneous candidiasis APPLY TO AFFECTED AREA TWICE A DAY 30 g 2 0 Active betamethasone valerate (VALISONE) 0.1 % creamIndications :Cutaneous candidiasis APPLY TO AFFECTED AREA TWICE A DAY 30 g 2 0 Active fluconazole (DIFLUCAN) 150 mg tablet Take 1 tablet by mouth once. Then repeat in 3 days if symptoms persist. 2 tablet 1 1 Active loratadine (CLARITIN) 10 mg tablet Take 1 tablet (10 mg total) by mouth daily 0 Active LORazepam (ATIVAN) 1 mg tablet TAKE 1 TABLET BY MOUTH 1 HOUR PRIOR TO THE MRI MAY REPEAT IF NEEDED 1 Active amitriptyline (ELAVIL) 50 mg tablet TAKE 1 TAB (50 MG) AT BEDTIME 90 tablet 1 4 Active allopurinoL (ZYLOPRIM) 100 mg tablet 4 Active valACYclovir (VALTREX) 1 gram tablet Take 1 tablet (1,000 mg total) by mouth daily 4 Active carBAMazepine (TEGretol) 100 mg chewable tablet CHEW AND SWALLOW 1 TABLET BY MOUTH TWICE DAILY 180 tablet 1 5 Active Active Problems Problem Noted Date Diagnosed Date Brain concussion 03/18/2023 Body mass index 40+ - severely obese 10/31/2016 Overview (11/29/2016): Body mass index 40+ - severely obese Morbid obesity with BMI of 40.0-44.9, adult 10/06 Overview (11/29/2016): Morbid obesity Epilepsy undetermined as to focal or generalized 10/13/2015 Overview (10/11/2016): Epilepsy undetermined whether focal or generalized History of stroke 11/03/2012 Overview (10/09/2016): Stroke Resolved Problems Problem Noted Date Diagnosed Date Resolved Date Sequela of cerebrovascular accident 10/13/2015 12/09/2023 Overview (10/11/2016): Sequela of cerebrovascular accident Seizure 11/03/2012 12/09/2023 Overview (10/11/2016): Seizure Encounters Date Type Department Care Team Description 08/06/2024 Orders Only [facility] [address] [place] [address] [address] [place] [address] Lio Gibbons MD 08/03/2024 Telephone [facility] [place] [address] [facility] [address] [place] [address] Giselle Judge CMA from Last 3 Months Medical History Medical History Date Comments Hyperlipidemia Hyperlipidemia Hypertension Hypertension Seizure disorder (HCC) Seizure d isorder Hx Other Medical Headache, migra ine Family History Medical History Relation Name Comments Hypertension Mother Hypertension; Migraines Mother Migraine; Breast cancer Neg Hx Relation Name Status Comments Mother Social History Tobacco Use Types Packs/Day Years Used Date Smoking Tobacco: Former Smokeless Tobacco: Never Tobacco Cessation:Counseling Given: Not Answered Alcohol Use Standard Drinks/Week Comments No 0 (1 standard drink = 0.6 oz pur e alcohol) Comments No Sex and Gender Information Value Date Recorded Sex Assigned at Not on file Legal Sex Female 7:07 PM LIFE SKILLS COORDINATOR VOLUNTEER Gender Identity Not on file Sexual Orientation Not on file Obstetrics History Para Term AB IAB SAB Ectopic Multiple Livin g Live Births 7 4 4 2 1 4 Date Outcome GA Total Labor Labor/2nd/3rd Weight Sex Type Anes PTL Ev A1 A5 Name Clin Term Term Term Term SAB AB Last Filed Vital Signs Vital Sign Reading Time Taken Comments Blood Pressure 119/80 06/15/2024 11:32 AM LIFE SKILLS COORDINATOR VOLUNTEER Pulse 81 06/15/2024 11:32 AM LIFE SKILLS COORDINATOR VOLUNTEER Temperature - - Respiratory Rate 18 06/09/2023 10:21 AM LIFE SKILLS COORDINATOR VOLUNTEER Oxygen Saturation 97% 06/15/2024 11:32 AM LIFE SKILLS COORDINATOR VOLUNTEER Inhaled Oxygen Concentration - - Weight 83.9 kg (185 lb) 06/15/2024 11:32 AM LIFE SKILLS COORDINATOR VOLUNTEER Height 152.4 cm (5') 06/15/2024 11:32 AM LIFE SKILLS COORDINATOR VOLUNTEER Body Mass Index 36.13 06/15/2024 11:32 AM LIFE SKILLS COORDINATOR VOLUNTEER Plan of Treatment Health Maintenance Due Date Last Done Comments Colon Cancer Screening-Colonoscopy 1960 Depression Screening 1960 Fall Risk Assessment 1960 Hepatitis C Screening 1960 Osteoporosis Screening-Bone Density Scan 1960 DTaP/Tdap/Td Vaccine (1 - Tdap) 1969 Hepatitis B Screening 1976 Breast Cancer Screening-Mammogram 02/18/2016 015, 05/06/2013 Well Visit 65+ 01/15/2025 01/16/2024 Influenza Vaccine (Season Ended) 2025 08/19/2019, 08/09/2019, 07/10/2016, Additional history exists Pneumococcal vaccine 65+ (3 of 3 - PCV20 or PCV21) 06/02/2028 06/02/2023, 08/19/2019 Zoster Vaccine Completed 01/04/2023, 09/13/2022 Cervical Cancer Screening Discontinued 2023, 01/16/2024, 12/12/2020, Additional history exists Procedures Procedure Name Priority Date/Time Associated Diagnosis Comments PAP AND HIGH RISK HPV, REFLEX TO GENOTYPING Routine 01/16/2024 1:27 PM CDT Well woman exam without gynecological exam Vaginal irritation Pelvic and perineal pain DIAGNOSTIC MAMMOGRAM BILATERAL W JUAN DIEGO Routine 02/17/2015 2:02 PM CDT from Last 3 Months or Most Recently Relevant to Health Maintenance Results * Pap and High Risk HPV and Genotyping (Cytology Component) (01/16/2024 1:27 PM CDT) Endocervical (Pap test) 01/16/2024 1:27 PM CDT 01/19/2024 3:02 AM CDT Narrative PATHOLOGY [facility] - 01/21/2024 12:44 PM CDT [facility] results best viewed via link to PDF [facility] [place] [address] Note to Patients: This report may contain a detailed description of human tissue sent by a health care provider to the laboratory for pathologic evaluation. The content of this report is essential for diagnosis and may provide important critical findings. This information may be unfamiliar to patients to review without a medical professional present. It is advised that the patient review this report in the presence of a health care provider who can answer questions and explain the details. CYTOPATHOLOGY REPORT FINAL Patient Name: LEATHA WINN Gender: F : 1960 (Age: 63) Address: [address] [place] [id number] [facility] #: [id number] Service: DEFAULT Location: Patient Type: [facility] SPECIMEN Taken: 01/16/2024 Received: 01/19/2024 Accessioned: 01/19/2024 Reported: 01/21/2024 Physician(s): Charo Sexton FINAL INTERPRETATION SOURCE OF SPECIMEN Liquid based Thin Prep pap with HPV: STATEMENT OF ADEQUACY - Satisfactory for evaluation - No endocervical/transformation zone sample present in a post menopausal patient GENERAL CATEGORIZATION: - Negative for squamous intraepithelial lesion or malignancy INTERPRETATION: - Atrophy Comments (Normal-Negative for High Risk HPV) HPV HR 16- Not detected HPV HR 18-Not detected HPV HR non 16/18- Not detected Interpretive Data Nucleic acid amplification for detection of high-risk Human Papilloma virus (HPV) is performed by the Danika Leslee 6800 HPV test. This assay specifically detects HPV- 16 and HPV-18 genotypes. The following HPV genotypes are detected as high-risk HPV: HPV-31, 33, 35, 39, 45, 51, 52, 56, 58, 59, 66, and 68. This assay has been approved by the [place] Food and Drug Administration for detection of HPV in cervical specimens collected by a physician using an endocervical brush/spatula or cervical broom and placed in the ThinPrep Pap Test PreservCyt collection containers. The performance characteristics of this test have been verified by the [facility] laboratory. Correlate with reported cytology results, as applicable. Interpretive data last revised 22 tc/01/21/2024 12:44 CODI Dey (ASCP) Report Electronically Reviewed and Signed Out By CODI Dey (ASCP) 01/21/2024 12:44:54 Cervicovaginal Cytology (Pap Test) Disclaimer: The Pap test is a screening test used to detect cervical cancer and its precursors; it is not a diagnostic procedure. False negative and false positive results do occur. Pap test results should be interpreted in the context of pertinent clinical information and biopsy results as indicated. [facility] Clinical Laboratory Improvement Amendments (CLIA) mandate that cytologic and histologic results be correlated for laboratory quality compliance coordinator & improvement standards. FOR ALL HIGH-GRADE CASES we request submission of follow-up histological material and/or reports that have not been previously provided so that we may fulfill said required standards. Gross Description A. Liquid based Thin Prep pap with HPV: Cervical/vaginal - Screening ThinPrep Clinical Diagnosis and History Last Menstrual Period: PM The patient is a 63 year old woman with 12/12/20 wnl HPV negative. Report Images and scanned documents, if included only viewable in PDF version The performance characteristics of some immunohistochemical stains, in-situ hybridization and fluorescence in-situ hybridization tests and immunophenotyping by flow cytometry cited in this report (if any) were determined by the Surgical Pathology Department at [facility] as part of an ongoing quality assurance calibrator program and in compliance with federally mandated regulations drawn from the Clinical Laboratory Improvement Act of 1988 (CLIA '88). Some of these tests rely on the use of analyte specific reagents and are subject to specific labeling requirements by the [place] Food and Drug Administration. Such diagnostic tests may only be performed in a facility that is certified by the Department of Health and Human Services as a high complexity laboratory under CLIA '88. The FDA has determined that such clearance or approval is not necessary. This test is used for clinical purposes. It should not be regarded as investigational or for research. Nevertheless, federal rules concerning the medical use of analyte specific reagents require that the following disclaimer be attached to the report: This test was developed and its performance characteristics determined by the Surgical Pathology Department of [facility]. It has not been cleared or approved by the U. S. Food and Drug Administration. Bonnie Love NP LAB CYTOLOGY ORDERABLES Leti goncalves Result PATHOLOGY [facility] * Diagnostic Mammogram Bilateral W Juan Diego (02/17/2015 2:02 PM CDT) Anatomical Region Laterality Modality Breast Bilateral Mammography 02/17/2015 2:02 PM CDT Impressions 02/17/2015 2:29 PM CDT BIRADS 1: NEGATIVE No evidence of malignancy in either breast. No abnormality to explain bilateral diffuse pain. Base any further evaluation on clinical examination. This was discussed with Ms. Winn and she was provided with a hand out on breast pain. A 1 year screening mammogram is recommended. Electronically signed by: Dr. John Holland nh/:02/17/2015 14:27:07 Branch Sales And Service Representative: Carolina Kwok RT(Eugene)(M), [facility] letter sent: Normal Exam Reading location: BI-RADS: 1 Negative [EOD] Narrative 02/17/2015 2:29 PM CDT - [facility] BILAT DIAGNOSTIC 3D W/CAD BILATERAL DIGITAL DIAGNOSTIC MAMMOGRAM 3D/2D WITH CAD WITH MEDIOLATERAL OBLIQUE CRANIOCAUDAL: 02/17/2015 The study was acquired using full field digital technology and interpreted from soft copy. Current study was also evaluated with ICAD version 7.2. CLINICAL: 54-year-old woman presents for bilateral diffuse breast pain for approximately 1 year. COMPARISONS: Comparison is made to exams dated: 05/06/2013 mammogram and 06/05/2011 [facility]. BREAST TISSUE: The tissue of both breasts is almost entirely fatty. FINDINGS: No significant masses, calcifications, or other findings are seen in either breast. There has been no significant interval change. Procedure Note Provider, MD Ena - 11/22/2020 - [facility] BILAT DIAGNOSTIC 3D W/CAD BILATERAL DIGITAL DIAGNOSTIC MAMMOGRAM 3D/2D WITH CAD WITH MEDIOLATERALOBLIQUE CRANIOCAUDAL: 02/17/2015 The study was acquired using full field digital technology and interpretedfrom soft copy. Current study was also evaluated with ICAD version 7.2. CLINICAL: 54-year-old woman presents for bilateral diffuse breast pain for approximately 1 year. COMPARISONS: Comparison is made to exams dated: 05/06/2013 mammogram and 06/05/2011 [facility]. BREAST TISSUE: The tissue of both breasts is almost entirely fatty. FINDINGS: No significant masses, calcifications, or other findings areseen in either breast. There has been no significant interval change. IMPRESSION: BIRADS 1: NEGATIVE No evidence of malignancy in either breast. No abnormality to explain bilateral diffuse pain. Base any further evaluation on clinicalexamination. This was discussed with Ms. Winn and she was provided with a hand outon breast pain. A 1 year screening mammogram is recommended. Electronically signed by: Dr. John Holland nh/:02/17/2015 14:27:07 Branch Sales And Service Representative: Carolina Kwok RT(R)(M), [facility] letter sent: Normal Exam Reading location: BI-RADS: 1 Negative [EOD] Uriel Sullivan MD IMG MAMMO PROCEDURES Final Result from Last 3 Months or Most Recently Relevant to Health Maintenance Insurance [facility] UHC MEDICARE ADVANTAGE MEDICARE [facility] PLAN IDPA [facility] MEDICARE ADVANTAGE Care Teams Sow Farm Barn Technician Relationship Specialty Start Date End Date Lisa Butler NP PCP - General Nurse Practitioner 03/11/23
--- OUTSIDE RECORDS SUMMARY | 2024-10-06 09:05 | XMS_ITS | Clinical Summary ---
Author Organization [facility] Address [address] [place] [address] Phone Care Team Providers Care Career Services Manager Name Role Phone Leoncio Cline MD Primary Care Provider [phone] Allergies Active Allergy Reactions Criticality Noted Date Comments Codeine Penicillin V Hydrocodone-Acetaminophen Medications Medication Sig Dispensed Refills Start Date End Date Status aspirin (ASPIR-LOW) 81 MG EC tablet 1 tablet two times daily 0 06/12/2016 Active ezetimibe (ZETIA) 10 MG tablet Take 10 mg by mouth 1 (one) time each day. 3 11/05/2018 Active carBAMazepine (TEGretol) 100 MG chewable tablet CHEW AND SWALLOW 1 TABLET BY MOUTH EVERY 12 HOURS 08/09/2019 Active Levocetirizine Dihydrochloride (XYZAL PO) Take by mouth Active allopurinol (ZYLOPRIM) 100 MG tablet Take 100 mg by mouth 1 (one) time each day Active cholecalciferol (VITAMIN D-3) 50 MCG (2000 UT) tablet Take 2,000 Units by mouth 1 (one) time each day Active furosemide (LASIX) 20 MG tabletIndications:Othe r cirrhosis of liver (CMS-HCC) TAKE 1 TABLET BY MOUTH TWICE A DAY NEEDED FOR SWELLING 180 tablet 1 05/17/2024 Active Active Problems Problem Noted Date Diagnosed Date Vitamin D deficiency 02/17/2024 Other cirrhosis of liver 12/29/2018 Hyperparathyroidism due to renal insufficiency 0 12/29/2018 Hypertensive chronic kidney disease with stage 1 through stage 4 chronic kidney disease, or unspecified chronic kidney disease 06/12/2016 Chronic kidney disease stage 3B 06/12/2016 Resolved Problems Problem Noted Date Diagnosed Date Resolved Date Edema of lower extremity 04/17/202102/2023 Disorder of parathyroid gland 12/29/2018 12/29/2018 Obesity 06/12/2016 12/10/2019 Immunizations Name Administration Dates Next Due Influenza TIV (IM) 06/22/2014 Family History Medical History Relation Comments Hypertensive disorder Mother Kidney disease Neg Hx Relation Status Comments Mother Social History Tobacco Use Types Packs/Day Years Used Date Smoking Tobacco: Never Smokeless Tobacco: Never Tobacco Cessation:Counseling Given: Not [...] on file Sexual Orientation Not on file Last Filed Vital Signs Vital Sign Reading Time Taken Comments Blood Pressure 148/86 01/22/2023 1:30 PM CDT Pulse 78 01/22/2023 1:30 PM CDT Temperature - - Respiratory Rate - - Oxygen Saturation 92% 01/22/2023 1:30 PM CDT Inhaled Oxygen Concentration - - Weight 82.1 kg (181 lb) 07/15/2023 12:47 PM CLAIM AUDITOR Height 152.4 cm (5') 02/17/2024 12:16 PM CDT Body Mass Index 35.35 07/15/2023 8:57 AM CLAIM AUDITOR Plan of Treatment Upcoming Encounters Date Type Department Care Team (Late st Contact Info) Description 02/15/2025 11:40 AM CDT Office Visit [facility] [address] [facility] [address] [place] [address] Marcos Solano MD [address] [address] Health Maintenance Due Date Last Done Comments Pneumococcal PPSV23/PCV13 65 + Years / High and Highest Risk (2 of 4 - PPSV23 or PCV20) 07/28/2023 06/02/2023 Influenza Vaccine (#1) 2024 0, 08/09/2019, 07/10/2016, Additional history exists Care Teams Career Services Manager Relationship Specialty Start Date End Date Leoncio Cline MD PCP - General 10/23/22
--- OUTSIDE RECORDS SUMMARY | 2024-10-06 09:05 | XMS_ITS | Encounter Summary ---
Author Organization [facility] Address [address] [place] [address] Care Team Providers Care First Officer Name Role Phone Kyler Rodriguez MD Primary Care Provider [phone] Kyler Rodriguez MD Unavailable [phone] Lisa Butler [facility] Primary Care Provider + Stephen Portillo DO Primary Care Provider + Encounter Details Date Type Department Care Team (Late st Contact Info) Description 06/12/2020 Prep for Procedure [facility] Day [facility] [place], [place] [id number] Andi Bravo MD [address] [phone] Social History Tobacco Use Types Packs/Day Years Used Date Smoking Tobacco: Former Cigarettes 0.5 2 Smokeless Tobacco: Never Alcohol Use Standard Drinks/Week Comments No 0 (1 standard drink = 0.6 oz pur e alcohol) Humiliation, Afraid, Rape, and Kick questionnair e Answer Date Recorded Within the last year, have y ou been afraid of your partner or ex-partner? Patient declined 06/09/2020 Within the last year, have y ou been humiliated or emotionally abused in other ways by your partner or ex-partner? Patient declined 06/09/2020 Within the last year, have y ou been kicked, hit, slapped, or otherwise physically hurt by your partner or ex-partner? Patient declined 06/09/2020 Within the last year, have y ou been raped or forced to have any kind of sexual activity by your partner or ex-partner? Patient declined 06/09/2020 AUDIT-C Answer Date Recorded Frequency of Alcohol Consumption Never 06/03/2018 Average Number of Drinks Not on file 018 Frequency of Binge Drinking Not on file 05/08 PHQ-2 Answer Date Recorded PHQ-2 Score 0 06/01/2019 Comments No Sex and Gender Information Value Date Recorded Sex Assigned at Female 06/03/2018 12:21 PM CRYPTOZOOLOGIST Legal Sex Female 7:55 PM CDT Gender Identity Female 06/03/2018 12:21 PM CRYPTOZOOLOGIST Sexual Orientation Straight 06/03/2018 12 :21 PM CRYPTOZOOLOGIST COVID-19 Exposure Response Date Recorded In the last month, have you been in contact with someone who was confirmed or suspected to have Coronavirus / COVID-19? No / Unsure 06/15/2020 8:30 AM CRYPTOZOOLOGIST documented as of this encounter Plan of Treatment Not on file documented as of this encounter Results * PRE-SURGICAL/PRE-PROCEDURE CORONAVIRUS (COVID 19) (06/12/2020 12:00 PM CRYPTOZOOLOGIST) CORONAVIRUS SARS COV 2 PCR (RESP) NOT DETECTED NOT DETECTED 06/13/2020 9:57 PM CRYPTOZOOLOGIST [facility] Comment: A Not Detected (negative) test result for this test means that SARS- CoV-2 RNA was not present in the specimen above the limit of detection. A negative result does not rule out the possibility of COVID-19 and should not be used as the sole basis for treatment or patient management decisions. If COVID-19 is still suspected, based on exposure history together with other clinical findings, re-testing should be considered in consultation with public health authorities. Laboratory test results should always be considered in the context of clinical observations and epidemiological data in making a final diagnosis and patient management decisions. Please review the Fact Sheets and FDA authorized labeling available for health care providers and patients using the following websites: https://www.[employer].OpenRoute/home/Covid-19/HCP/Quest[employer]/fact- sheet.html https://www.[employer].OpenRoute/home/Covid-19/Patients/ Quest[employer]/fact-sheet.html This test has been authorized by the FDA under an Emergency Use Authorization (EUA) for use by authorized laboratories. Due to the current public health emergency, [facility] is receiving a high volume of samples from a wide variety of swabs and media for COVID-19 testing. In order to serve patients during this public health crisis, samples from appropriate clinical sources are being tested. Negative test results derived from specimens received in non-commercially manufactured viral collection and transport media, or in media and sample collection kits not yet authorized by FDA for COVID-19 testing should be cautiously evaluated and the patient potentially subjected to extra precautions such as additional clinical monitoring, including collection of an additional specimen. Methodology: Nucleic Acid Amplification Test (NAAT) includes RT-PCR or TMA Additional information about COVID-19 can be found at the [facility] [facility] website: www.[employer].OpenRoute/Covid19. Test performed at [facility] [address] [place] [address] Director: MANFRED BENNETT DO,MPH FIRST TEST YES 06/12/2020 2:39 PM [facility] EMPLOYED IN HEALTHCARE NO 06/12/2020 2:39 PM CRYPTOZOOLOGIST [facility] SYMPTOMATIC DEFINED BY CDC NO 06/12/2020 2:39 PM CRYPTOZOOLOGIST [facility] DATE OF SYMPTOM ONSET UNKNOWN 06/12/2020 2:40 PM CRYPTOZOOLOGIST [facility] HOSPITALIZATION STATUS NO 06/12/2020 2:39 PM CRYPTOZOOLOGIST [facility] PATIENT IN ICU NO 06/12/2020 2:39 PM CRYPTOZOOLOGIST [facility] RESIDENT OF [facility] NO 06/12/2020 2:39 PM CRYPTOZOOLOGIST [facility] NO 06/12/2020 2:40 PM CRYPTOZOOLOGIST [facility] PATIENT'S RACE WHITE OR 06/12/2020 2:39 PM CRYPTOZOOLOGIST [facility] ETHNICITY NONHISPANIC 06/12/2020 2:39 PM CRYPTOZOOLOGIST [facility] SOURCE (QST) NASOPHARYNGEAL SWAB 06/12/2020 2:39 PM CRYPTOZOOLOGIST [facility] NASOPHARYNGEAL SWAB / Unknown 06/12/2020 12:00 PM CRYPTOZOOLOGIST us Andi Bravo MD MICROBIOLOGY - GENERAL NADEEM BRENNER Final Result [facility] [address] [place] [address], [facility] [address] [place] [address], documented in this encounter Visit Diagnoses Diagnosis RUQ pain- Primary Abdominal pain, right upper quadrant documented in this encounter Additional Health Concerns Infection Onset Date Last Indicated Resolved Time COVID-19 Rule Out 06/12/2020 06/12/2020 06/13/2020 9:57 PM CRYPTOZOOLOGIST documented as of this encounter Care Teams First Officer Relationship Specialty Start Date End Date Kyler Rodriguez MD [address] [place] [address] PCP - General 11/12/16 06/14/20 Kyler Rodriguez MD [address] [place] [id number] PCP - Med Group - [facility] Attributed Provider 07/07/15 07/06/21 Lisa Butler FNP- [address] [place] [id number] PCP - General NURSE PRACTITIONER 06/15/20 06/17/23 Stephen Portillo DO [address] [place] [id number] PCP - General FAMILY PRACTICE 06/18/23 documented as of this encounter
--- OUTSIDE RECORDS SUMMARY | 2024-10-06 09:05 | XMS_ITS | Encounter Summary ---
Author Organization [facility] Address [address] [place] [address] Phone Care Team Providers Care Associate Professor Of Music Name Role Phone Moe Hawley MD Primary Care Provider [phone] Kyler Rodriguez MD Primary Care Provider [phone] Lisa Butler NP Primary Care Provider + Encounter Details Date Type Department Care Team (Late st Contact Info) Description 10/28/2017 Orders Only [facility] ProviderEna MD [address] [place] [address] Social History Tobacco Use Types Packs/Day Years Used Date Smoking Tobacco: Never Alcohol Use Standard Drinks/Week Comments No 0 (1 standard drink = 0.6 oz pur e alcohol) Comments Unknown Sex and Gender Information Value Date Recorded Sex Assigned at Not on file 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 us Historical Provider LAB CYTOLOGY ORDERABLES F inal Result documented in this encounter Visit Diagnoses Not on filedocumented in this encounter Care Teams Associate Professor Of Music Relationship Specialty Start Date End Date Moe Hawley MD PCP - General Family Medicine 12/23/18 11/14/19 Kyler Rodriguez MD [address] [place] [address] PCP - General Internal Medicine 11/15/19 03/10/23 Lisa Butler NP [address] [place] [address] PCP - General Nurse Practitioner 03/11/23 documented as of this encounter
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
--- OUTSIDE RECORDS SUMMARY | 2024-10-06 09:05 | XMS_ITS | CONTINUITY OF CARE DOCUMENT ---
Author Name zoë camp Address Unknown Organization [facility] Address [address] [place] [address] Phone [phone] Care Team Providers Care Predatory Hunter Name Role Phone Hilario AGUIRRE, Malik Unavailable INSURANCE PROVIDERS Payer name Policy type / Coverage type [place] [employer] ID [id number] PAY [id number]
--- OUTSIDE RECORDS SUMMARY | 2024-10-06 09:05 | XMS_ITS | Clinical Summary ---
Author Organization [facility] Address [address] [place] [address] Care Team Providers Care Recovery Coach Name Role Phone RaulrhondaDelta rosa Melody DO Primary Care Provider + Allergies Active Allergy Reactions Criticality Noted Date Comments Lorazepam Hallucinations 08/19/2019 Azithromycin Unknown 01/22/2016 Codeine Rash Low Doxycycline Other (see comment) 09/25/2023 Abdominal pain Hydrocodone-Acetaminophen Unknown 12/13/2014 Iodinated Contrast Media Unknown,Rash Medium 4 Iodine Hives Naproxen Unknown Penicillins Vomiting 12/13/2014 Medications aspirin 81 MG chewable tablet Chew by mouth 2 (two) times daily. Active budesonide 0.25 MG/2ML nebulizer solutionIndicatio ns:Chronic kidney disease, stage 4 (severe) ([facility] HHS/HCC) Take 2 mLs (0.25 mg total) by nebulization 2 (two) times daily. 60 mL 1 020 Active carBAMazepine ER 100 MG 12 hr capsuleIndication s:Seizure ([facility]/HCC HHS/[facility]) Take 1 capsule (100 mg total) by mouth 2 (two) times daily. 160 capsule 1 020 Active ipratropium-albut leighann 0.5-2.5 (3) MG/3ML SolutionIndicatio ns:Asthma, chronic ([facility]/HCC) Take 3 mLs by nebulization every 4 (four) hours as needed (cough). 90 mL 1 020 Active Heating Pads (DE DIOS MOIST HEAT THERAPY) PadsIndications:S ciatica Use as directed 1 each Active furosemide 20 MG tablet Take 1 tablet (20 mg total) by mouth daily. Active loratadine 10 MG tabletIndications :Nasal congestion,Nonint ractable headache, unspecified chronicity pattern, unspecified headache type Take 1 tablet (10 mg total) by mouth daily. 30 tablet 3 Active fluticasone propionate 50 MCG/ACT nasal sprayIndications: Nasal congestion,Nonint ractable headache, unspecified chronicity pattern, unspecified headache type 1 spray by Nasal route daily. 18.2 mL 3 Active cetirizine 10 MG tablet Take 1 tablet (10 mg total) by mouth daily. Active albuterol (PROVENTIL) (2.5 MG/3ML) 0.083% nebulizer solution INHALE 1 VIAL VIA NEBULIZER TWICE DAILY NEEDED FOR WHEEZING Active amitriptyline (ELAVIL) 50 MG tablet Take 1 tablet (50 mg total) by mouth nightly at bedtime. Active betamethasone valerate cream (VALISONE) 0.1 % cream USE ON SKIN FOLDS TWICE DAILY FOR 10 DAYS NEEDED RASH Active clotrimazole (LOTRIMIN) 1 % cream USE IN SKIN FOLDS TWICE DAILY FOR 10 DAYS NEEDED FOR YEAST Active montelukast (SINGULAIR) 10 MG tablet Take 1 tablet (10 mg total) by mouth daily. Active nystatin (MYCOSTATIN) 933168 UNIT/ML suspension TAKE 5 ML BY MOUTH 3 TIMES A DAY FOR 5 DAYS 023 Active tiZANidine (ZANAFLEX) 2 MG tablet TAKE 1 TABLET BY MOUTH EVERY 6 HOURS NEEDED FOR MUSCLE SPASM OR NECK PAIN Active lisinopril-hydroC HLOROthiazide (ZESTORETIC) 10-12.5 MG tabletIndications :Essential hypertension Take 1 tablet by mouth daily. 90 tablet 3 024 Active methocarbamol (ROBAXIN) 750 MG Tab Take 1 tablet (750 mg total) by mouth 2 (two) times a day. 45 tablet 024 Active ondansetron (ZOFRAN-ODT) 4 MG disintegrating tabletIndications :Nausea Take 1 tablet (4 mg total) by mouth every 8 (eight) hours as needed for Nausea. 20 tablet 024 Active SHOWER CHAIR, DME,Indications:M orbid obesity due to excess calories (CMS/HCC),Physica l deconditioning 1 Device by Other route as needed. 1 Device 024 Active ezetimibe (ZETIA) 10 MG tabletIndications :Mixed hyperlipidemia Take 1 tablet by mouth once daily 90 tablet 025 Active omeprazole (PRILOSEC) 40 MG capsuleIndication s:Gastroesophagea l reflux disease, unspecified whether esophagitis present Take 1 capsule by mouth once daily 90 capsule 025 Active albuterol sulfate HFA 108 (90 Base) MCG/ACT inhalerIndication s:Moderate persistent chronic asthma without complication ([facility]) INHALE 2 PUFFS BY MOUTH EVERY 4 HOURS NEEDED FOR WHEEZING 18 g 025 Active cefdinir (OMNICEF) 300 MG Cap capsuleIndication s:Acute non-recurrent maxillary sinusitis Take 1 capsule (300 mg total) by mouth 2 (two) times daily. 20 capsule 025 Active valACYclovir (VALTREX) 1 g tabletIndications :Herpes simplex Take 1 tablet by mouth once daily 90 tablet 025 Active lidocaine (LIDODERM) 5 %Indications:Righ t knee pain USE 1 PATCH EXTERNALLY ONCE DAILY, MAY WEAR PATCH UP TO 12 HOURS THEN DISCARD 30 patch 025 Active allopurinol (ZYLOPRIM) 100 MG tabletIndications :Gout, unspecified cause, unspecified chronicity, unspecified site Take 1 tablet by mouth once daily 90 tablet 025 Active valACYclovir (VALTREX) 1 g tabletIndications :Herpes simplex Take 1 tablet by mouth once daily 90 tablet 024 2024 Discontinued allopurinol (ZYLOPRIM) 100 MG tabletIndications :Gout, unspecified cause, unspecified chronicity, unspecified site Take 1 tablet (100 mg total) by mouth daily. 90 tablet 024 2024 Discontinued lidocaine (LIDODERM) 5 %Indications:Righ t knee pain USE 1 PATCH EXTERNALLY ONCE DAILY MAY WEAR UP TO 12 HOURS THEN DISCARD 30 patch 025 2024 Discontinued Active Problems Problem Noted Date Diagnosed Date Vitamin D deficiency 02/17/2024 Synovial cyst of right knee 06/25/2023 Hyperglycemia 03/07/2021 Cirrhosis of liver ([facility]) 12/29/2018 Hyperparathyroidism due to renal insufficiency ( [facility]) 12/29/2018 Sciatica 10/21/2017 Diverticulitis 03/11/2017 Weakness of lower extremity 10/16/2016 Hyperlipidemia 11/16/2015 Asthma, chronic ([facility]) 11/07/2015 Incisional hernia 04/24/2015 Hypertension 12/13/2014 Chondromalacia of patella 08/31/2013 History of stroke 11/03/2012 Overview (06/03/2018): Overview: Stroke Resolved Problems Problem Noted Date Diagnosed Date Resolved Date Deep vein thrombosis of lowe r extremity ([facility]) 07/14/2023 09/25/2023 Arthralgia of right knee 12/12/2022 Herpes simplex 05/15/2022 09/25/2023 Abdominal hernia 09/04/2020 09/25/2023 Cerebrovascular accident (CV A) ([facility]) 11/03/2012 09/25/2023 Encounters Date Type Department Care Team Description 09/09/2024 1:00 PM VACUUM DRIER OPERATOR Telemedicine [facility] Internal [address] [phone] Delta Jackson, DO Sinus Problem; Headache (Symptoms started about 4 weeks ago); Dizziness 09/09/2024 Travel 08/30/2024 Telephone [facility] Internal [address] [phone] Delta Jackson, DO Orders 08/11/2024 Telephone [facility] Internal [address] [address] Delta Jackson, DO Medication Request 07/30/2024 Telephone [facility] Internal [address] [address] Delta Jackson, DO Results 07/30/2024 Telephone [facility] Internal [address] [phone] Delta Jackson, DO Results 07/22/2024 Travel 07/21/2024 10:40 AM VACUUM DRIER OPERATOR Office Visit [facility] Internal [address] [address] Delta Jackson P, DO Wrist Pain (The patient denies injury. The patient states the left wrist pain started months ago. She states it may be getting worse. ) 07/21/2024 Travel from Last 3 Months Immunizations Name Administration Dates Next Due Influenza (Generic) 07/10/2016,06/22/2014,2013 Influenza Adult (Generic) 08/19/2019,08/09/2019, 04/24/2015 Pneumococcal (Pneumovax 23) 08/19/2019 Pneumococcal (Prevnar 13) 06/02/2023 Shingrix 01/04/2023,09/13/2022 Family History Medical History Relation Comments Cancer Father Asthma Mother Hypertension Mother Relation Status Comments Father Mother Social History Tobacco Use Types Packs/Day Years Used Date Smoking Tobacco: Former Cigarettes 0.5 2 Smokeless Tobacco: Never Tobacco Cessation:Counseling Given: Not [...] on file 05/08 PHQ-2 Answer Date Recorded Patient Health Questionnaire-2 Score 1 07/21/2024 Comments No Sex and Gender Information Value Date Recorded Sex Assigned at Female 06/03/2018 12:21 PM VACUUM DRIER OPERATOR Legal Sex Female 7:55 PM CDT Gender Identity Female 06/03/2018 12:21 PM VACUUM DRIER OPERATOR Sexual Orientation Straight 06/03/2018 12 :21 PM VACUUM DRIER OPERATOR Last Filed Vital Signs Vital Sign Reading Time Taken Comments Blood Pressure 100/74 07/21/2024 11:07 AM VACUUM DRIER OPERATOR Pulse 54 07/21/2024 11:07 AM VACUUM DRIER OPERATOR Temperature 36.9 C (98.4 F) 07/21/2024 11:07 AM VACUUM DRIER OPERATOR Respiratory Rate 16 07/21/2024 11:0 7 AM VACUUM DRIER OPERATOR Oxygen Saturation 97% 07/21/2024 11: 07 AM VACUUM DRIER OPERATOR Inhaled Oxygen Concentration - - Weight 83 kg (183 lb) 07/21/2024 11:07 AM VACUUM DRIER OPERATOR patient report Height 152.4 cm (5') 07/21/2024 11:07 AM VACUUM DRIER OPERATOR Body Mass Index 35.74 07/21/2024 11:07 AM VACUUM DRIER OPERATOR Plan of Treatment Health Maintenance Due Date Last Done Comments DTaP, Tdap and Td Vaccines (1 - Tdap) 1977 RSV Immunization or 60+ Years (1 - Risk 60-74 years 1-dose series) 2018 Annual Medicare Wellness Visit 2023 Dexa Scan (General) 2023 Pneumococcal Vaccine: 65+ Years (3 of 3 - PPSV23 or PCV20) 08/19/2024 06/02/2023, 08/19/2019 Mammogram Screening 11/24/2024 11/25/2023, 02/17/2015, 05/06/2013 COVID-19 Vaccine ( season) 2025 Postponed from 03/07/2024 (Patient Refused) Influenza Adult (#1) 2025 08/19/2019, 08/09/2019, 07/10/2016, Additional history exists Postponed from 04/06/2024 (Patient Refused) Colorectal Cancer Screening Colonoscopy (10 Years) 03/17/2034 03/17/2024, 06/15/2020, 06/15/2020, Additional history exists Hepatitis C Completed 01/11/2019 Zoster Vaccines Completed 01/04/2023, 09/13/2022 PHQ-2 (Physician [place]) Completed 07/21/2024 Meningococcal B Vaccine Aged Out No l onger eligible based on patient's age to complete this topic Meningococcal Vaccine Aged Out No christa moncho eligible based on patient's age to complete this topic RSV Immunizations Under 20 Months Aged Out No longer eligible based on patient's age to complete this topic Procedures Procedure Name Priority Date/Time Associated Diagnosis Comments XR WRIST LT MIN 3V Routine 07/22/2024 1: 18 PM VACUUM DRIER OPERATOR Left wrist pain COLONOSCOPY GENERIC (SCAN ORDER) 03/17/2024 MAMMOGRAM GENERIC (SCAN ORDER) 11/25/2023 HEPATITIS A,B,& C Routine 01/11/2019 1:0 9 PM CDT Other cirrhosis of liver from Last 3 Months or Most Recently Relevant to Health Maintenance Results * XR WRIST LT MIN 3V (07/22/2024 1:18 PM VACUUM DRIER OPERATOR) Anatomical Region Laterality Modality Wrist Radiographic Michelle ging 07/22/2024 3:01 PM VACUUM DRIER OPERATOR Impressions 07/22/2024 3:03 PM VACUUM DRIER OPERATOR IMPRESSION: No acute abnormality identified. Ordered By: DELTA JACKSON Interpreted By: López Meyer MD, 07/22/2024 3:01 PM Narrative 07/22/2024 3:03 PM VACUUM DRIER OPERATOR [facility] [place] [address] Examination: XR WRIST LT MIN 3V Exam time: 07/22/2024 1:09 PM Clinical history: Chronic wrist pain for 3 to 4 months Comparison: No prior exam Technique: PA, oblique, and lateral views left wrist Findings: Left distal radius and ulna appear unremarkable. Carpal bone relationships and appearances appear normal. Minimal degenerative change left first carpal-metacarpal joint. No definitive evidence of fracture involving the carpal bones or metacarpals. No evidence of abnormal soft tissue densities. Procedure Note López Meyer MD - 07/22/2024 [facility] - [address] [address] Examination: XR WRIST LT MIN 3V Exam time: 07/22/2024 1:09 PM Clinical history: Chronic wrist pain for 3 to 4 months Comparison: No prior exam Technique: PA, oblique, and lateral views left wrist Findings: Left distal radius and ulna appear unremarkable. Carpal bonerelationships and appearances appear normal. Minimal degenerative changeleft first carpal-metacarpal joint. No definitive evidence of fractureinvolving the carpal bones or metacarpals. No evidence of abnormal softtissue densities. IMPRESSION: No acute abnormality identified. Ordered By: DELTA JACKSON Interpreted By: López Meyer MD, 07/22/2024 3:01 PM Delta Jackson DO GENERAL IMAGING Final Re sult * COLONOSCOPY GENERIC (SCAN ORDER) (03/17/2024) 03/17/2024 [facility] Scanned SCANNING Final Resu lt * MAMMOGRAM GENERIC (SCAN ORDER) (11/25/2023) Anatomical Region Laterality Modality Other 11/25/2023 us [facility] Scanned SCANNING Final Resu lt * HEPATITIS A,B,& C (01/11/2019 1:09 PM CDT) HEPATITIS B SURFACE AG NON-REACTI VE NON-REACTI VE 01/11/2019 9:[address] [facility] HEP B CORE TOTAL AB NON-REACTI VE NON-REACTI VE 01/11/2019 9:[address] [facility] HEP B SURFACE AB NON-REACTI VE 01/11/2019 8:[address] [facility] HAV IGM NON-REACTI VE NON-REACTI VE 01/11/2019 10:[address] [facility] HEPATITIS C AB NON-REACTI VE NON-REACTI VE 01/11/2019 9:[address] [facility] 01/11/2019 1:09 PM CDT Kyler Rodriguez MD LABORATORY Final Result [facility] [address] [place] [address], [place] [phone] from Last 3 Months or Most Recently Relevant to Health Maintenance Insurance MEDICAID [facility] Care Teams Recovery Coach Relationship Specialty Start Date End Date Delta Jackson DO [address] [place] [address] PCP - General FAMILY PRACTICE 06/18/23
--- OUTSIDE RECORDS SUMMARY | 2024-10-06 09:05 | XMS_ITS | Encounter Summary ---
Author Organization [facility] Address [address] [place] [phone] Phone Care Team Providers Care Metal Furniture Glazier Name Role Phone Leoncio Cline MD Primary Care Provider [phone] Reason for Visit * Reason Comments Med Refill Encounter Details Date Type Department Care Team (Late Contact Info) Description 05/24/2019 Refill [facility] [address] [facility] [place] [address] Marcos Solano MD [address] [phone] Social History Tobacco Use Types Packs/Day Years [...] Description 02/15/2025 11:40 AM CDT Office Visit [facility] [address] [facility] [address] [place] [address] Marcos Solano MD [address] [phone] documented as of this encounter Visit Diagnoses Not on filedocumented in this encounter Care Teams Metal Furniture Glazier Relationship Specialty Start Date End Date Leoncio Cline MD PCP - General 10/23/22 documented as of this encounter
--- OUTSIDE RECORDS SUMMARY | 2024-10-06 09:05 | XMS_ITS | Encounter Summary ---
Author Organization [facility] Address [address] [place] [address] Phone Care Team Providers Care Card Runner Name Role Phone Leoncio Cline MD Primary Care Provider Reason for Visit * Reason Comments Med Refill Encounter Details Date Type Department Care Team (Late Contact Info) Description 03/04/2019 Refill [facility] [address] [facility] 1 [place] [address] Marcos Solano MD [address] [phone] Social History Tobacco Use Types Packs/Day Years [...] Description 02/15/2025 11:40 AM CDT Office Visit [facility] [address] [facility] [address] [place] [address] Marcos Solano MD [address] [phone] documented as of this encounter Visit Diagnoses Not on filedocumented in this encounter Care Teams Card Runner Relationship Specialty Start Date End Date Leoncio Cline MD PCP - General 10/23/22 documented as of this encounter
--- OUTSIDE RECORDS SUMMARY | 2024-10-06 09:05 | XMS_ITS | Referral Summary ---
Author Organization [facility] [address] [place] [address] Care Team Providers Care Plasma Processing Centrifuge Operator Name Role Phone Lisa Butler DUSTING AND BRUSHING MACHINE OPERATOR Primary Care Provider + Encounters Date Type Department Care Team Description 08/06/2024 Orders Only [facility] [address] [place] [address] [address] [place] [address] Lio Gibbons MD 08/03/2024 Telephone [facility] Sleep Medicine at [address] [place] [address] Giselle Judge CMA from Last 3 Months Allergies Active Allergy Reactions Criticality Noted Date [...] accident Seizure 11/03/2012 12/09/2023 Overview (10/11/2016): Seizure Social History Tobacco Use Types Packs/Day Years Used Date Smoking Tobacco: Former Smokeless Tobacco: Never Tobacco Cessation:Counseling Given: Not Answered Alcohol Use Standard Drinks/Week Comments No 0 (1 standard drink = 0.6 oz pur e alcohol) Comments No Sex and Gender Information Value Date Recorded Sex Assigned at Not on file Legal Sex Female 7:07 PM WOMEN'S SOCCER COACH Gender Identity Not on file Sexual Orientation Not on file Last Filed Vital Signs Vital Sign Reading Time Taken Comments Blood Pressure 119/80 06/15/2024 11:32 AM WOMEN'S SOCCER COACH Pulse 81 06/15/2024 11:32 AM WOMEN'S SOCCER COACH Temperature - - Respiratory Rate 18 06/09/2023 10:21 AM WOMEN'S SOCCER COACH Oxygen Saturation 97% 06/15/2024 11:32 AM WOMEN'S SOCCER COACH Inhaled Oxygen Concentration - - Weight 83.9 kg (185 lb) 06/15/2024 11:32 AM WOMEN'S SOCCER COACH Height 152.4 cm (5') 06/15/2024 11:32 AM WOMEN'S SOCCER COACH Body Mass Index 36.13 06/15/2024 11:32 AM WOMEN'S SOCCER COACH Plan of Treatment Not on file Procedures Procedure Name Priority Date/Time Associated Diagnosis [...] CDT 01/19/2024 3:02 AM CDT Narrative PATHOLOGY [facility] - 01/21/2024 12:44 PM CDT EPIC results best viewed via link to PDF [facility] Shauna Mccauley [facility] [place] [address] Note to Patients: This report may contain [...] Gender: F : 1960 (Age: 63) Address: [address] [place] [phone] [facility] #: [id number] Service: DEFAULT Location: Patient Type: [facility] SPECIMEN Taken: 01/16/2024 Received: 01/19/2024 Accessioned: 01/19/2024 Reported: 01/21/2024 Physician(s): Bonnie LoveF.N.P FINAL INTERPRETATION SOURCE OF SPECIMEN Liquid based [...] this test have been verified by the [facility] Molecular Infectious Disease laboratory. Correlate with reported [...] clinical information and biopsy results as indicated. [facility] Clinical Laboratory Improvement Amendments (CLIA) mandate that cytologic and histologic results be correlated for laboratory quality facilitator & improvement standards. FOR ALL HIGH-GRADE CASES [...] determined by the Surgical Pathology Department at [facility] as part of an ongoing quality facilitator program and in compliance with federally mandated [...] determined by the Surgical Pathology Department of [facility]. It has not been cleared or approved by the U. S. Food and Drug Administration. Bonnie Love NP LAB CYTOLOGY ORDERABLES Leti ivanna Result PATHOLOGY [facility] * Diagnostic Mammogram Bilateral W Juan [...] signed by: Dr. John Holland nh/:02/17/2015 14:27:07 Architecture Drafter: Carolina GARCIA(R)(M), [facility] letter sent: Normal Exam Reading location: BI-RADS: 1 Negative [EOD] Narrative 02/17/2015 2:29 PM CDT - [facility] BILAT DIAGNOSTIC 3D W/CAD BILATERAL DIGITAL DIAGNOSTIC MAMMOGRAM 3D/2D WITH CAD WITH MEDIOLATERAL OBLIQUE CRANIOCAUDAL: 02/17/2015 The study was acquired using full field digital technology and interpreted from soft copy. Current study was also evaluated with ICAD version 7.2. CLINICAL: 54-year-old woman presents for bilateral diffuse breast pain for approximately 1 year. COMPARISONS: Comparison is made to exams dated: 05/06/2013 mammogram and 06/05/2011 [facility]. BREAST TISSUE: The tissue of both [...] to exams dated: 05/06/2013 mammogram and 06/05/2011 [facility]. BREAST TISSUE: The tissue of both [...] signed by: Dr. John Holland nh/:02/17/2015 14:27:07 Architecture Drafter: Carolina Kwok RT(R)(M), [facility] letter sent: Normal Exam Reading location: BI-RADS: 1 Negative [EOD] Uriel Jatinder Sullivan MD IMG MAMMO PROCEDURES Final Result from Last 3 Months or Most Recently Relevant to Health Maintenance Insurance [facility] MEDICARE ADVANTAGE [facility]IC[facility] Address: [address] [address] [place] [address] MEDICARE [facility] Address: [address] [address] [place] [address] [facility] PLAN [facility]PA [facility] MEDICARE ADVANTAGE [facility] MEDICARE Address: [address] [address] [place] [address] Care Teams Plasma Processing Centrifuge Operator Relationship Specialty Start Date End Date Lisa Butler NP PCP - General Nurse Practitioner 03/11/23
== END 2024-10-06 08:45 | disposition home or self-care (01) ==
PROVIDERS: PCP Student in an Organized Health Care Education/Training Program; Visit Provider Student in an Organized Health Care Education/Training Program
DX: M67.432 Ganglion, left wrist (principal)
CPT/HCPCS: 73221